=== PATIENT | male | born 1955 | race Caucasian/White ===

== ENCOUNTER 2018-11-07 11:31 | Outpatient (REF) | payer BC, SELFPAY ==
[2018-11-07 14:09] LABS: ALT 65 U/L (12-78); AST 39 U/L (15-37); Albumin 3.6 g/dL (3.4-5.0); Alkaline Phosphatase 71 U/L (46-116); Anion Gap 8.2 mmol/L (3-11); BUN 18 mg/dL (7-18); Bilirubin, Total 0.8 mg/dL (0.2-1.0); CO2 27.8 mmol/L (21.0-32.0); CREATININE 1.12 mg/dL (0.70-1.30); Chloride 107 mmol/L (98-107); Glucose 97 mg/dL (70-100); NT-proBNP 228 pg/mL; Potassium 4.4 mmol/L (3.5-5.1); Sodium 143 mmol/L (136-145); Total Protein 6.4 g/dL (6.4-8.2)
[2018-11-07 15:26] LABS: HCT 40.7 % (40.0-50.0); HGB 13.3 g/dL (13.5-17.5); Mean Corp. HGB Concentration 32.7 g/dL (32.0-36.0); Mean Corpuscular Volume 91.7 fL (80-95); Mean Platelet Volume 10.9 fL (8.0-11.0); Platelet Count 176 x1000/uL (130-400); RBC 4.44 m/cumm (4.50-6.00); White Blood Cell Count 5.04 k/cumm (4.4-10.8)
[2018-11-08 09:20] LABS: Hepatitis C Ab w Rflx HCV PCR Negative (NEGAT)
== END 2018-11-07 11:51 ==
LOC: NCHCN 11:31
PROVIDERS: PCP Internal Medicine; Visit Provider Internal Medicine
DX: F41.9 Anxiety disorder, unspecified (principal); I87.2 Venous insufficiency (chronic) (peripheral)
CPT/HCPCS: 80053; 85027; 86803; 83880

== ENCOUNTER 2019-03-12 14:40 | Outpatient (CLI) | payer BC, SELFPAY ==
--- NOTE | 2019-03-12 14:35 | DI.RAD_ITS ---
SYMPTOM/DIAGNOSIS: RIGHT KNEE PAIN LEG AND RIGHT KNEE: RIGHT KNEE: Severe DJD involving the right knee is noted. There is marked narrowing in the medial femorotibial joint space and periarticular hypertrophic spurring is demonstrated. SUMMARY: Severe DJD as identified. LEG LENGTH: The right lower extremity measures 102.7 cm. The left lower extremity measures 104.5 cm.
== END 2019-03-12 15:00 ==
PROVIDERS: PCP Internal Medicine; Visit Provider Physician Assistant
DX: M25.561 Pain in right knee (principal); M17.11 Unilateral primary osteoarthritis, right knee
CPT/HCPCS: 73560; 77073

== ENCOUNTER 2019-05-13 09:38 | Emergency (ER) | payer BC, SELFPAY ==
[2019-05-13 09:48] VITALS: BP 141/85; PULSE 58; RESP 15; TEMP 36.6; O2SAT 99
--- NOTE | 2019-05-13 09:50 | ED.GENADUL_ITS ---
Discharge Plan Disposition Patient Disposition: HOME Condition: Good Discharge Details Chief Complaint: Orthopedic Clinical Impression: Sprain of right shoulder Primary Care Provider: Hong Sadler ED Provider: Wade Aguilar Home Meds and New Rx's Prescriptions: New lidocaine [Lidoderm] 1 PATCH patch 1 patch Topical Q24H Qty: 4 RF: 0 No Action diphenoxylate-atropine 2.5-0.025 mg tablet 1 tab PO Q2H PRN PRNRF: 0 atorvastatin 40 mg tablet 40 mg PO DAILY RF: 0 Eliquis 5 mg tablet 5 mg PO BID RF: 0 metoprolol tartrate 25 mg tablet 12.5 mg PO HS RF: 0 mirtazapine 7.5 mg tablet 7.5 mg PO DAILY RF: 0 pantoprazole 40 mg tablet,delayed release (DR/EC) 40 mg PO DAILY RF: 0 gabapentin [Neurontin] 300 MG capsule 600 mg PO HS RF: 0 Discharge Instructions Instructions: Shoulder Sprain (ED) Additional Instructions: Please use the Lidoderm patch as directed. Please take Tylenol as needed for pain control. Please try to keep your arm moved in all directions multiple times throughout the day to prevent frozen shoulder syndrome. Please use the sling as needed for pain control. He will be contacted by non destructive testing specialist for follow-up. If you notice any worsening of your symptoms, or any new symptoms such as vomiting, diarrhea, fever, chills, shortness of breath, chest pain, numbness, weakness, or fainting , please return immediately to the emergency department for reevaluation. Please follow up with your primary care provider as soon as possible for reassessment and reevaluation. As always, it was a pleasure participating in your medical care today. Referrals: Stephen Johnson MD [ [facility] STAFF PHYSICIAN] - Medical Decision Making This is a pleasant 63-year-old male who presents for evaluation of right shoulder pain after fall 24 hours ago. He did not hit his head, he had no loss of consciousness peer he fell during the evening and caught himself with his right arm. Exam demonstrates normal sensation for his hand and fingers, no wrist pain, however he does have notable right shoulder pain in his right dominant arm. Tenderness is notably present with external rotation and abduction. He has severe weakness and pain in his shoulder when flexing at the elbow in the pronated fashion, concerning for biceps brachii injury. With the other concerning physical exam findings I am notably concerned for rotator cuff injury as well. We will get an x-ray to rule out fracture, place the patient in a sling, and recommend orthopedic follow-up. He has seen Dr. Johnson and is scheduled to have a knee replacement with him later this year. 11: [address] scan of the head is returned negative for any evidence of acute process fracture or bleed per virtual radiology, x-ray shows no evidence of acute process or fracture. I do suspect rotator cuff injury and potential biceps brachii injury. Patient has been given sling, pain is controlled. Discussed red flags which to return. I have extensively reviewed the treatment plan and discharge instructions with the patient. I have addressed all patient concerns at this time. The patient was made aware of what symptoms to monitor for that would warrant a return to the emergency department. Discussed the plan with the patient, they demonstrate verbal understanding and agreement with our assessment and plan at this time. FINDINGS: Brain: Normal. No hemorrhage. Unremarkable white matter. No mass effect. Ventricles: Normal. No ventriculomegaly. Bones/joints: Unremarkable. No acute fracture. Sinuses: Visualized sinuses are unremarkable. No fluid levels. Mastoid air cells: Visualized mastoid air cells are well aerated. No mastoid effusion. Soft tissues: Unremarkable. IMPRESSION: No acute intracranial abnormality. Thank you for allowing us to participate in the care of your patient. Dictated and Authenticated by: Sivakumar Petit MD 05/13/2019 10:56 AM Eastern Time ([place] & [place]) FINDINGS: Bones/joints: Moderate right acromioclavicular arthropathy. Soft tissues: Normal. IMPRESSION: No acute findings. Thank you for allowing us to participate in the care of your patient. Dictated and Authenticated by: Sivakumar Petit MD 05/13/2019 10:31 AM Eastern Time ([place] & [place]) HPI General Date/Time Provider Initiated Documentation: 05/13/19 09:49 . HPI Narrative: This is a 63-year-old male with a past medical history of A. fib on Eliquis who presents today for evaluation of right shoulder pain. Patient states that he has a history of a ventral right hand but has not had any previous surgeries. Last night he was walking in his home when he fell and caught himself with his right arm. At that time he felt that everything was pushed backwards and he had notable pain in his right shoulder, and some tingling in his fingertips. This is notably improved but the pain is continued. He has taken some Aleve but this is not changed his pain. He denies any chest pain, chest tightness or shortness of breath. He denies any wrist or forearm pain. Pain is made worse with flexing at the elbow, and any movements of the shoulder. He denies any other radiation of his pain. He has no other complaints at this time. Related Data Home Medications Medication Instructions Recorded Confirmed gabapentin [Neurontin] 600 mg PO HS 02/24/13 03/12/19 apixaban 5 mg tablet 5 mg PO BID 03/12/19 03/12/19 atorvastatin 40 mg tablet 40 mg PO DAILY 03/12/19 03/12/19 diphenoxylate-atropine 2.5 1 tab PO Q2H PRN PRN tab 03/12/19 03/12/19 mg-0.025 mg tablet metoprolol tartrate 25 mg tablet 12.5 mg PO HS tab 03/12/19 03/12/19 mirtazapine 7.5 mg tablet 7.5 mg PO DAILY 03/12/19 03/12/19 pantoprazole 40 mg tablet,delayed 40 mg PO DAILY 03/12/19 03/12/19 release lidocaine [Lidoderm] 1 patch TOPICAL Q24H #4 patch 05/13/19 Previous Rx's Medication Instructions Recorded lidocaine [Lidoderm] 1 patch TOPICAL Q24H #4 patch 05/13/19 Allergies Allergy/AdvReac Type Severity Reaction Status Date / Time No Known Allergies Allergy Unverified 03/12/19 14:27 General Stated Complaint: Orthopedic HERMAN: 4 Review of Systems Review of Systems All systems reviewed & are unremarkable except as noted in HPI and below PFSH Medical History (Updated 03/12/19 @ 18:02 by MIKY Bee) A-fib (Chronic) TIA (transient ischemic attack) (Chronic) Surgical History (Updated 03/12/19 @ 18:00 by MIKY Bee) History of colon resection (Chronic) History of total left knee replacement (TKR) (Chronic) Social History Smoking/Tobacco Use Status: Never Drug use: Never Do you feel safe in your relationship?: Yes Exam Narrative Exam Narrative: 1.Const: Well-nourished, Well-developed, appearing stated age 2.Eyes: PERRL, no conjunctival injection, and symmetrical lids. 3.ENT: Atraumatic external nose and ears. Moist MM. Neck: Symmetric, trachea midline, No thyromegaly. There is no evidence of raccoon eyes, martínez sign, CSF rhinorrhea, mastoid tenderness, cranial crepitus, hemotympanum, exophthalmos, or hyphema. 4.CVS: +S1/S2, No murmurs or gallops. Peripheral pulses 2+ and equal in all extremities. Brisk capillary refill in all extremities. 5.RESP: Unlabored respiratory effort. Clear to auscultation bilaterally. No wheezes rales or rhonchi 6.GI: Soft, Nontender/Nondistended, No hepatosplenomegaly. No guarding or rebound. 7.MSK: Normocephalic/Atraumatic, Extremities w/o deformity. No cyanosis or clubbing, right shoulder: Exam of the shoulder demonstrates mild tenderness over the AC joint, notable pain with external rotation and abduction, significant weakness in these movements secondary to pain. No severe pain or weakness with flexion, extension, adduction, or internal rotation. Patient demonstrates normal strength for flexion of the elbow when the forearm is supinated, however when the patient is pronated he has nearly 0 strength and significant pain in the shoulder. Concerning for biceps brachii pathology. Symmetrically palpable radial and ulnar pulses. Capillary refill less than 2 seconds to all digits. Intact sensation to light touch of the radial, median and ulnar nerves demonstrated by testing in the dorsal web space of the thumb, the distal palmar aspect of the index finger, and the lateral surface of the fifth finger. 2 point discrimination intact to 5mm (up to 6mm can be normal in digits 3-5) of discrimination in the affected digit. Intact motor function of the radial, median and ulnar nerves demonstrated by strength of extension of the isolated distal joint of the index finger, hand bank president, and spreading of the 2nd through 5th digits. Intact recurrent median nerve as demonstrated by ability to move thumb fully through opposition, abduction and flexion. No snuffbox tenderness. 8.Skin: Warm, Dry. No rashes or lesions. 9.Neuro: business ethics professor II-XII grossly intact. Sensation grossly intact, no focal neurologic deficits. 10.Psych: (AAO) x3. Appropriate mood and affect Course Vital Signs Temperature 36.6 C 05/13/19 09:48 Pulse 58 L 05/13/19 09:48 Respiratory Rate 15 05/13/19 09:48 Blood Pressure 141/85 H 05/13/19 09:48 Pulse Oximetry 99 05/13/19 09:48 Temperature 36.6 C 05/13/19 09:48 Temperature Source Temporal Artery Scan 05/13/19 09:48 Pulse 58 L 05/13/19 09:48 Respiratory Rate 15 05/13/19 09:48 Blood Pressure 141/85 H 05/13/19 09:48 Pulse Oximetry 99 05/13/19 09:48 Oxygen Delivery Method Room Air 05/13/19 09:48 Oxygen Flow Rate 0 05/13/19 09:48 Pain Level 10 05/13/19 09:48
--- NOTE | 2019-05-13 10:22 | DI.RAD_ITS ---
SYMPTOM/DIAGNOSIS: RIGHT SHOULDER PAIN. RIGHT SHOULDER: 05/13/19 Three views were obtained. There is hypertrophic degenerative change at the acromioclavicular joint. There is no evidence of a fracture or dislocation.
--- NOTE | 2019-05-13 10:32 | DI.VRAD_ITS ---
EXAM: XR Right Shoulder EXAM DATE/TIME: 05/13/2019 10:05 AM CLINICAL HISTORY: 63 years old, male; Patient HX: Patient tripped last night, catching himself, but jarring the right shoulder in an upward motion. Pain. TECHNIQUE: Imaging protocol: XR Right shoulder. Views: 2 or more views. COMPARISON: No relevant prior studies available. FINDINGS: Bones/joints: Moderate right acromioclavicular arthropathy. Soft tissues: Normal. IMPRESSION: No acute findings. Dictated and Authenticated by: Sivakumar Petit MD. Ordering:GURPREET Olvera MD
--- NOTE | 2019-05-13 10:33 | DI.CT_ITS ---
SYMPTOM/DIAGNOSIS: MIGHT HAVE HIT HEAD YESTERDAY, ON ELIQUIS CRANIAL CT: 05/[address] was performed. The ventricular system is normal in appearance. There is no evidence of an intracranial mass lesion. There is no evidence of a subdural or epidural hematoma. No focal areas of decreased attenuation are seen. CONCLUSION: Normal noncontrast Cranial CT.
[2019-05-13] MEDS: Acetaminophen 500 MG TAB 1000 MG PO (10:46)
[2019-05-13] MEDS: Lidocaine 5% Patch 1 PATCH TP (10:46)
--- NOTE | 2019-05-13 10:56 | DI.VRAD_ITS ---
EXAM: CT Head Without Contrast EXAM DATE/TIME: 05/13/2019 10:34 AM CLINICAL HISTORY: 63 years old, male; Injury or trauma; Injury history: Potential head trauma 05/12 TECHNIQUE: Imaging protocol: Computed tomography images of the head without contrast. Coronal and sagittal reformatted images were created and reviewed. COMPARISON: No relevant prior studies available. FINDINGS: Brain: Normal. No hemorrhage. Unremarkable white matter. No mass effect. Ventricles: Normal. No ventriculomegaly. Bones/joints: Unremarkable. No acute fracture. Sinuses: Visualized sinuses are unremarkable. No fluid levels. Mastoid air cells: Visualized mastoid air cells are well aerated. No mastoid effusion. Soft tissues: Unremarkable. IMPRESSION: No acute intracranial abnormality. Dictated and Authenticated by: Sivakumar Petit MD. Ordering:GURPREET Olvera MD
== END 2019-05-13 11:35 | disposition home or self-care (01) ==
PROVIDERS: Emergency Provider Student in an Organized Health Care Education/Training Program; PCP Internal Medicine
DX: S43.401A Unspecified sprain of right shoulder joint, initial encounter (principal); S09.90XA Unspecified injury of head, initial encounter; W18.30XA Fall on same level, unspecified, initial encounter; Z79.01 Long term (current) use of anticoagulants; I48.91 Unspecified atrial fibrillation
CPT/HCPCS: 99284; 70450; 73030; L3650

== ENCOUNTER 2019-05-28 01:18 | Outpatient (CLI) | payer BC, SELFPAY ==
--- NOTE | 2019-05-28 11:40 | DI.MRI_ITS ---
SYMPTOM/DIAGNOSIS: RT SHOULDER INJURY, S46.001A, FELL RIGHT SHOULDER MRI: Comparison is made with plain films dated 05/13/19. Proton density and fat suppressed T 2 axial and coronal and T 1 and fat suppressed T 2 sagittal sequences were performed. There is prominent spurring of the AC joint. There is also spurring at the tip of the acromion. There is a full thickness tear of the supraspinatus tendon with retraction to the level of the tip of the acromion. There is no significant muscular atrophy. The infraspinatus tendon shows no evidence of a tear, however there is some atrophy in the superior portion of the muscle. The subscapularis and teres minor as well as biceps tendons appear intact. There is abnormal signal in the superior labrum which could be degenerative. There is a minimal amount of joint fluid. There is a small amount of fluid in the subacromial and subcoracoid bursa. IMPRESSION: Full thickness tear with retraction of the supraspinatus tendon. Degenerative changes versus tear of the superior labrum.
== END 2019-05-28 01:38 ==
PROVIDERS: PCP Internal Medicine; Visit Provider Student in an Organized Health Care Education/Training Program
DX: S46.001A Unspecified injury of muscle(s) and tendon(s) of the rotator cuff of right shoulder, initial encounter (principal); M25.511 Pain in right shoulder
CPT/HCPCS: 73221

== ENCOUNTER 2019-06-29 06:10 | Day surgery (SDC) | payer BC, SELFPAY ==
[2019-06-29] VITALS (10 sets, daily range): BP systolic 87–110; BP diastolic 37–68; PULSE 69–88; RESP 15–19; TEMP 36.1–37.1; O2SAT 94–99
--- NOTE | 2019-06-29 07:24 | W.PM.DSUDISC ---
Discharge Plan Disposition Patient Disposition: HOME Condition: Stable Discharge Details Reason For Visit: RTC REPAIR Attending Provider: Jermaine Kenny Primary Care Provider: Hong Sadler Meds and New Rx's Prescriptions: New naproxen 250 mg tablet 250 mg PO BID PRN (Reason: pain) Qty: 60 RF: 0 aspirin 81 mg tablet,delayed release (DR/EC) 81 mg PO DAILY Qty: 30 RF: 0 ondansetron 4 mg tablet,disintegrating 4 mg PO Q6H PRN (Reason: nausea and vomiting) Qty: 5 RF: 0 oxycodone 5 mg tablet 5 mg PO Q4H PRN (Reason: pain, severe) Qty: 36 RF: 0 Continued diphenoxylate-atropine 2.5-0.025 mg tablet 1 tab PO Q2H PRN PRNRF: 0 atorvastatin 40 mg tablet 40 mg PO DAILY RF: 0 Eliquis 5 mg tablet 5 mg PO BID RF: 0 metoprolol tartrate 25 mg tablet 12.5 mg PO HS RF: 0 mirtazapine 7.5 mg tablet 7.5 mg PO HS RF: 0 pantoprazole 40 mg tablet,delayed release (DR/EC) 40 mg PO DAILY PRNRF: 0 cyclobenzaprine 5 mg tablet 5 mg PO QHS PRN (Reason: muscle spasm) Qty: 10 RF: 0 gabapentin [Neurontin] 300 MG capsule 600 mg PO HS RF: 0 Centrum Silver Men 300-600-300 mcg Tablet PO RF: 0 Probiotic 3 billion cell Capsule RF: 0 Discharge Instructions Referrals: Jermaine Kenny MD [ [facility] STAFF PHYSICIAN] - Discharge Orders Discharge Orders: Discharge Order (Routine); Ordered 06/29/19 Ordered By: Jermaine Kenny Discharge Data Discharge Comment: see paper PT prescription and postop instructions DS: Diagnosis Discharge Diagnosis (1) Rotator cuff tear, right: Status: Acute (2) Stiffness of right shoulder joint: Status: Acute (3) Tendonitis of long head of biceps brachii of right shoulder: Status: Acute (4) Impingement syndrome of right shoulder: Status: Acute (5) Bursitis of right shoulder: Status: Acute
[2019-06-29] MEDS: Lactated Ringers 1,000 ML 100 ML IV ×2 (07:27→13:22)
[2019-06-29] MEDS: Bupivacaine LIPOSOME/PF 133 MG/10 ML VIAL IJ (07:40)
[2019-06-29] MEDS: Bupivacaine 0.5% Pres-Free 30 ML VIAL (07:40)
[2019-06-29] MEDS: ceFAZolin 2 GM/50 ML BAG IVPB (07:47)
[2019-06-29] MEDS: EPINEPHrine 1 MG/ML AMP pres-free (12:20)
--- NOTE | 2019-06-29 13:46 | W.PM.OP ---
Date of service: 06/29/19 Time of Service: 13:47 Operative Note Operative Note DATE OF PROCEDURE: 06/29/19 PRE-OP DIAGNOSIS: RIGHT 1. Rotator cuff tear 2. LHB tendinopathy 3. Bursitis 4. Contracture POST-OP DIAGNOSIS: same PROCEDURE: RIGHT shoulder: 1. Extensive debridement, CPT# 40499. This involved using arthroscopic hand instruments, power instruments, and radiofrequency instruments to debride areas of the biceps anchor, labral tearing, synovitis, and chondromalacia within the glenohumeral joint and subacromial region. The MGHL was released to address an external rotation contracture. The greater tuberosity was debrided down to bone and the bone penetrated with a punch to optimize the bone-tendon healing interface. 2. Biceps tenodesis, CPT# 61535. This involved reattaching the long head of the biceps tendon to the proximal humerus in the sub-pectoral area of the bicipetal groove at the correct tension. 3. Subacromial decompression, CPT# 24375. This involved releasing the coraco-acromial ligament using a radiofrequency wand, using a high-speed shaver to complete a bursectomy, and using a high-speed michael to complete removal of bone spurs on the undersurface of the acromion. 4. Rotator cuff repair, CPT# 69158. Modifier #22. This involved repair of the subscapularis, supraspinatus, and infraspinatus using anchors and sutures to reattach the rotator cuff back to the footprint of the lesser and greater tuberosity. This qualifies as a massive rotator cuff repair as it involved repair 3 out of 4 rotator cuff tendons. This required substantially more time and effort to complete, as noted by approximately 50% longer surgical time and a greater number of implants. The regulatory assistant was medically required in order to help assist in techniques above, which require positioning the arm, holding the arthroscope, and manipulating 2 to 4 instruments and sutures at the same time. This cannot be done without the help of an experienced regulatory assistant. SURGEON: Jermaine Kenny ASSISTING SURGEON: Solitario Mitchell ANESTHESIA: GETA and regional ESTIMATED BLOOD LOSS: 30 PATHOLOGY: none sent COMPLICATIONS: None Patient was transported to: PACU Patient's condition: stable Implants: Arthrex: 4.75mm SwiveLocks x 7 and Unicortical Proximal Biceps Tenodesis Button Indications: The patient was diagnosed with the above conditions and appropriately indicated for surgical intervention. Findings: Right shoulder: The exam under anesthesia revealed known right shoulder stiffness with passive forward flexion to 90 degrees and external rotation to 30 degrees. In the glenohumeral joint, there was significant anterior, posterior, superior labral tearing with surrounding synovitis and a full-thickness subscapularis tendon tear. There was also a thickened middle glenohumeral ligament. The long head of the biceps was inflamed and the biceps sling was also disrupted. There was adjacent chondromalacia of the humeral head. In the subacromial space, there was extensive bursitis and a moderate bone spur near the origin of the coraco-acromial ligament. There was a large tear of the supraspinatus and infraspinatus tendons that was retracted in a complex delaminated pattern involving 2 layers. Procedure Description: The patient was taken to the operating room and transferred to the operating room table. The correct patient, side of the procedure, and procedure were all verified prior to induction of general anesthesia. While under anesthesia, bilateral shoulders were examined. The patient was then positioned in the beachchair position. All bony prominences were well-padded. Preoperative antibiotics were administered. The shoulder and upper extremity was prepped and draped in the usual sterile fashion. Standard posterior portal was then made using a stab incision inferior and medial to the posterior lateral aspect of the acromion. The arthroscope was placed into the glenohumeral joint and a complete diagnostic arthroscopy was performed. An anterior portal was made. A tenotomy was done using hand instruments. The anterior labrum, superior labrum, biceps stump, and synovitis around the middle glenohumeral ligament were debrided as well as the biceps sling and adjacent chondromalacia on the humeral head using hand instruments and power instruments. The subscapularis tear was identified and mobilized. Using a single portal technique sutures were passed into the subscapularis. This consisted of 2 FiberSnares and a FiberTape. These were fixated with a 4.75 mm swivel lock that was placed onto a debrided lesser tuberosity. This repair was tested through external rotation and found to be both stable. Next, attention was turned to the mini open biceps tenodesis. Local anesthetic was infiltrated about the sub-pectoral incision. Blunt dissection was carried down to the bicipital groove. Retractors were carefully placed to protect neurovascular structures as the long head of the biceps tendon was identified and brought out of the incision. The tenodesis location was debrided with a rasp about 1 cm proximal to the inferior margin of the pectoralis major tendon. The tendon was found to be significantly frayed and edematous. The tendon was prepared using a fiber loop suture starting a centimeter proximal to the musculotendinous junction and the excess amputated. A power drill was used to localize placement of a unicortical biceps button. The sutures were threaded into the button which was placed into the proximal humerus and flipped and then tested thoroughly to ensure proper fixation in the intramedullary canal. The sutures were used the slide the tendon down to the prepared bone and it was tied in place. This wound was then copiously irrigated. Subcutaneous tissue was closed using 3-0 Monocryl in a buried interrupted fashion. The skin was closed using 3-0 Monocryl in a buried running fashion. Skin glue was applied to the incision. A sterile nonadhesive bandage was applied on top. Attention was returned to the shoulder and the arthroscope introduced into the subacromial space from posterior. A lateral portal was made. A complete bursectomy was performed from both the posterior and lateral portals using power instruments and radiofrequency instruments. A bone spur on the underside of the acromion was identified at the origin of the coracoacromial ligament and this was smoothed using a power michael. The supraspinatus and infraspinatus tendons were mobilized and repaired across the entirety of the greater tuberosity footprint in an anatomic fashion using a modified double row reduction compression technique. This involved placing a medial row of 2 swivel lock anchors and using the handoff technique to pass fiber tape through both layers of this large rotator cuff tear. The greater tuberosity was then debrided of soft tissue and punched down to bleeding cancellus bone as a sort of microfracture. FiberLinks were then used to reduce each layer of this delaminated large tear across the greater tuberosity and fixated with 2 SwivelLock anchors to a middle row. The previously passed FiberTapes were then brought over the reduced rotator cuff and fixated laterally to 2 additional SwiveLock anchors. 2 additional FiberLink sutures were incorporated into the posterior lateral row anchor to accommodate a large infraspinatus tear that needed to be reduced from posterior to anterior. The shoulder was brought through a range of motion and the repair was found to be stable. All portal sites were copiously irrigated. These incisions were closed using 3-0 nylon with a combination of portal stitches and simple stitches. All incisions were covered with Xeroform, dry gauze, and ABDs. The dressings were covered with foam tape. The patient awoke from anesthesia without complication. The operative extremity was placed into a sling for mobilization. The patient was transferred to the recovery room in stable condition.
== END 2019-06-29 16:40 | disposition home or self-care (01) ==
PROVIDERS: PCP Internal Medicine; Visit Provider Student in an Organized Health Care Education/Training Program
PROC: (CPT 29827; principal; 2019-06-29 07:30)
PROC: (CPT 23430; 2019-06-29 07:30)
DX: S46.011A Strain of muscle(s) and tendon(s) of the rotator cuff of right shoulder, initial encounter (principal); X58.XXXA Exposure to other specified factors, initial encounter; M25.611 Stiffness of right shoulder, not elsewhere classified; M75.21 Bicipital tendinitis, right shoulder; M75.41 Impingement syndrome of right shoulder; M75.51 Bursitis of right shoulder; G89.18 Other acute postprocedural pain; I48.91 Unspecified atrial fibrillation; Z86.73 Personal history of transient ischemic attack (TIA), and cerebral infarction without residual deficits; Z79.01 Long term (current) use of anticoagulants
CPT/HCPCS: 23430; 29827; 29826; 29823; 76942; J0171; J0690; J1100; J1885; J2370; J2405; L3670

== ENCOUNTER 2020-01-13 17:18 | Observation (INO) | payer BC, SELFPAY ==
[2020-01-13] VITALS (56 sets, daily range): BP systolic 112–146; BP diastolic 61–81; PULSE 61–89; RESP 12–24; TEMP 36.4–36.8; O2SAT 94–99
--- NOTE | 2020-01-13 17:46 | ED.GENADUL_ITS ---
Discharge Plan Disposition Patient Disposition: OTHER Discharge Details Chief Complaint: Chest Pain Clinical Impression: Chest pain, ST segment changes on electrocardiogram Primary Care Provider: Hong Sadler ED Provider: Jori Nino [place] Meds and New Rx's Prescriptions: No Action diphenoxylate-atropine 2.5-0.025 mg tablet 1 tab PO Q2H PRN PRNRF: 0 atorvastatin 40 mg tablet 40 mg PO DAILY RF: 0 Eliquis 5 mg tablet 5 mg PO BID RF: 0 metoprolol tartrate 25 mg tablet 12.5 mg PO BID RF: 0 mirtazapine 7.5 mg tablet 7.5 mg PO HS RF: 0 pantoprazole 40 mg tablet,delayed release (DR/EC) 40 mg PO DAILY PRNRF: 0 gabapentin [Neurontin] 300 MG capsule 600 mg PO HS RF: 0 Centrum Silver Men 300-600-300 mcg Tablet PO RF: 0 Probiotic 3 billion cell Capsule RF: 0 amoxicillin 500 mg Tablet See Rx Instructions .ROUTE .COMPLEX RF: 0 Medical Decision Making 64-year-old gentleman with significant medical history including intermittent atrial fibrillation, idiopathic cardiomyopathy, anticoagulated, presents for 2-3 days of a dull chest sensation, 2/10 aching. Asymptomatic now for at least 1 hour. History of EF being in the 30s but most recently back into the 50s. He currently appears well, nontoxic. Did not appear to be in atrial fibrillation, rate in the 80s, he is afebrile, and O2 sat is 97% on room air. No obvious infectious process. Will initiate cardiac work-up and give full dose aspirin. Patient reports that aspirin upsets his stomach, will give enteric-coated. EKG performed at 1726. Reviewed and interpreted by Dr. Robles. Sinus rhythm, ventricular of 85. Appears to be ST depression in V3 V4 V5 V6 which appears new when compared to prior EKG in 2017. No ST elevation segments. Inverted T waves in lead III 1814. Patient has had chest x-ray, appears unremarkable as read by me. Virtual radiology read as mild interstitial prominence, may be related to edema. BNP is pending he remains asymptomatic 1844. Discussed his benign laboratory values and EKG changes. Patient remains asymptomatic. He is agreeable to await a 3-hour troponin and EKG here in the ER. If there are dynamic changes of the EKG or elevation of troponin likely transfer will be indicated otherwise I would like to admit him here to our facility for cardiac rule out and hope to expedite cardiac work-up including echocardiogram and stress test. Patient is initially agreeable to transfer if indicated but unsure if he is willing to be admitted to our facility and he would like to contact his vice president of product marketing. I explained to him that if his blood work is unchanged he still has changes in his EKG which are concerning. This likely requires further work-up and given the pandemic going on around us, a timely outpatient stress test and/or echocardiogram are unlikely. I am concerned that delaying care could certainly lead to a poor outcome. Patient understands my concerns and would like to talk with his family regarding the options. At this point we are just awaiting the 3-hour zoe to obtain EKG and repeat troponin 1999. Patient reports that he continues to have no chest pain whatsoever however sitting here in the ER is now making him anxious. Will be given 1 mg IV Ativan and will give all of his evening medications. Repeat EKG performed at 2026, reviewed and interpreted by Dr. Aguilar. Sinus rhythm, ventricular rate 81. There continues to be ST depression in V3 4 5 and 6 however to a lesser degree than his initial EKG. There are no ST elevation segments. Inverted T waves in lead III 2119. Repeat troponin is less than 0.05. Patient remains asymptomatic. Given his age, comorbidities, chest aching, and EKG changes, I do believe bringing him into the facility for further observation and rule out is certainly reasonable. Patient feels with his EKG changes and chest pain he would be much more comfortable being observed. I discussed the case with Dr. Holt who is agreeable for an observation admission and trending troponin. He did want me to make the patient aware that inpatient nuclear medicine studies, echocardiogram, etc. may not be available as an inpatient, and being admitted may not expedite these tests. I did make the patient aware of this prior to admission. HPI General Mode of arrival: ambulatory . Date/Time Provider Initiated Documentation: 01/13/20 17:20 . Limitations to Documentation: no limitations . Information obtained by: patient . HPI Narrative: This is a 64-year-old gentleman with a history of A. fib, takes Eliquis, hyperlipidemia, hypertension, GERD, idiopathic cardiomyopathy presenting for intermittent chest sensation for the past 2-3 days. He reports the sensation is not necessarily pain or pressure but a very dull aching 2out of 10 aching. The pain does not radiate anywhere. He has been symptom-free for at least 1 hour currently. This aching does not feel like anything he has experienced when he has gone into A. fib in the past. He reports over the past couple of days he has been burning brush in his yard but does not feel he would describe this as strenuous work nor is there a clear connection between his chest sensation and working in the yard. Patient reports that he attempted to contact his primary care, spoke with the on-call physician, and was directed to be evaluated in the ER. He reports that he debated coming because he has been asymptomatic for over an hour. He reports that when he has the aching in his chest he has mild shortness of breath associated with it. It resolves in under 5 minutes spontaneously. Patient reports that his last stress test was back in 2012, he also had an echocardiogram and at that time his EF was around 35%. He was followed by vice president of product marketing and subsequently his EF came up into the mid 50s, he does not know the exact number. He was scheduled for another echocardiogram this month but it was canceled given the pandemic. He is followed by cardiology in [place] however his provider recently changed and he is unsure of his vice president of product marketing name. He reports that his primary care provider did increase his metoprolol dose not that long ago as he had been occasionally going into atrial fibrillation, this changes seem to help. He reports occasionally having a mild cough in the morning but then no cough throughout the day or evening. He denies any obvious fever although reports that going inside his house from outside working on the brush pile he did feel warm, he attributed that to the temperature change. He denies any headache, visual changes, neck pain, radiation of pain from his chest, productive cough, abdominal pain, nausea, vomiting, back pain, numbness, tingling, weakness, pain or swelling in his extremities, change of bowel or bladder habits. Patient later tells me that occasionally he wakes from sleep with a dull ache in his chest. Related Data Home Medications Medication Instructions Recorded Confirmed gabapentin [Neurontin] 600 mg PO HS 02/24/13 01/13/20 apixaban 5 mg tablet 5 mg PO BID 03/12/19 01/13/20 atorvastatin 40 mg tablet 40 mg PO DAILY 03/12/19 01/13/20 diphenoxylate-atropine 2.5 1 tab PO Q2H PRN PRN tab 03/12/19 01/13/20 mg-0.025 mg tablet metoprolol tartrate 25 mg tablet 12.5 mg PO BID tab 03/12/19 01/13/20 mirtazapine 7.5 mg tablet 7.5 mg PO HS 03/12/19 01/13/20 pantoprazole 40 mg tablet,delayed 40 mg PO DAILY PRN 03/12/19 01/13/20 release Centrum Silver Men tab PO 06/29/19 10/23/19 Probiotic 06/29/19 10/23/19 amoxicillin See Rx Instructions .ROUTE .COMPLEX 01/13/20 01/13/20 Allergies Allergy/AdvReac Type Severity Reaction Status Date / Time No Known Allergies Allergy Verified 01/13/20 17:28 General Stated Complaint: Chest Pain HERMAN: 3 Review of Systems Constitutional Constitutional: Denies fatigue, Denies fever(s), Denies headache(s) and Denies weakness Eyes Eyes: Denies change in vision ENT Ears, Nose, Mouth, and Throat: Denies headache(s) Cardiovascular Cardiovascular: Reports chest pain, Denies leg edema, Denies radiating jaw, neck or arm pain, Reports palpitations and Reports dyspnea Respiratory Respiratory: Reports cough and Reports dyspnea Gastrointestinal Gastrointestinal: Denies abdominal pain, Denies nausea and Denies vomiting Genitourinary Genitourinary: Denies dysuria Musculoskeletal Musculoskeletal: Denies back pain, Denies numbness and Denies tingling Integumentary/Breasts Skin/Breast: Reports lesions (Face, working with his primary care regarding this) Neurologic Neurologic: Denies headache(s), Denies numbness, Denies tingling and Denies weakness Endocrine Endocrine: Denies fatigue and Reports palpitations Hematologic/Lymphatic Hematologic/Lymphatic: Reports easy bruising FOR[facility]LY [facility], 1928–1983 Medical History A-fib (Chronic) Hx of testicular cancer (Acute) Irritable bowel syndrome (Chronic) TIA (transient ischemic attack) (Chronic) Caused by his atrial fibrillation prior to treatment Surgical History History of colon resection (Chronic) For ileus caused by narcotics after previous left total knee replacement History of colonoscopy (Chronic) History of total left knee replacement (TKR) (Chronic) Social History Smoking/Tobacco Use Status: Never Alcohol Intake: current Alcohol Intake frequency: a few times a week Alcohol type: beer Drug use: Never Substance use type: does not use Do you feel safe at home: Yes Do you feel safe in your relationship?: Yes Exam Const General: cooperative, healthy appearing, comfortable and no acute distress Orientation: alert, awake and oriented x3 HENMT Head: normal to inspection, normocephalic and atraumatic Mouth: moist mucous membranes Throat: posterior oropharynx normal Eyes Conjunctivae: conjunctivae normal Neck Neck: normal visual inspection, full ROM, no lymphadenopathy, trachea midline and supple Chest Chest: normal inspection of the chest and no tenderness Resp Effort & Inspection: normal respiratory effort and able to speak in complete sentences Auscultation: clear to auscultation bilaterally Cardio Rate: regular rate Rhythm: regular rhythm GI Inspection: normal to inspection Palpation: soft, not firm, no guarding, not rigid and nontender Auscultation: normal bowel sounds Back/Spine/Pelvis Back: No back tenderness Skin Rashes: no rashes Neuro General: patient alert, patient awake, patient oriented x3, moves all extremities and no focal motor deficits Cranial Nerves: CN's II-XI intact bilaterally Cognition: normal cognition Speech: speech normal Gait: normal gait Motor: muscle tone normal throughout Sensory Exam: no sensory deficits noted Extrem General: normal to inspection, full ROM, capillary refill normal, no pedal edema and no calf tenderness Psych Appearance: grossly normal Mental Status: mental status grossly normal Course Vital Signs Vital signs: Vital Signs Temperature 36.8 C 01/13/20 17:24 Pulse 83 01/13/20 17:24 Blood Pressure 143/71 H 01/13/20 17:24 Pulse Oximetry 97 01/13/20 17:24 Temperature 36.8 C 01/13/20 17:24 Temperature Source Temporal Artery Scan 01/13/20 17:24 Pulse 87 01/13/20 17:42 Pulse 88 01/13/20 17:42 Respiratory Rate 12 01/13/20 17:42 Respiratory Effort Non-Labored 01/13/20 17:27 Blood Pressure 126/81 01/13/20 17:42 Blood Pressure Mean 92 01/13/20 17:42 Blood Pressure Position Supine 01/13/20 17:24 Pulse Oximetry 98 01/13/20 17:42 Oxygen Delivery Method Room Air 01/13/20 17:24 Oxygen Flow Rate 0 01/13/20 17:24 Pain Level 2 01/13/20 17:24
--- NOTE | 2020-01-13 17:55 | DI.RAD_ITS ---
EXAM: XR PORTABLE CHEST AP CLINICAL HISTORY: <chest pain> TECHNIQUE: 2D digital imaging was performed. COMPARISON: CHEST 2 VIEWS PA,LAT from 07/02/2017 FINDINGS: LUNGS: Clear. No pleural abnormality seen. HEART: Normal. MEDIASTINUM: Normal. No evidence of pneumothorax. IMPRESSION: No acute pulmonary findings. DATA REPOSITORY: RADIATION DOSE DELIVERED:
[2020-01-13 17:57] LABS: Abs Immature Grans 0.01 k/cumm (0.0-0.09); Absolute Basophil Count 0.03 k/cumm (0.0-0.2); Absolute Eosinophil Count 0.17 k/cumm (0.0-0.7); Absolute Lymphocyte Count 1.92 k/cumm (1.2-3.4); Absolute Monocyte Count 0.91 k/cumm (0.11-0.7); Absolute Neutrophil Count 4.63 k/cumm (1.2-6.7); Basophils % 0.4; Eosinophils % 2.2; HCT 40.7 % (40.0-50.0); HGB 13.9 g/dL (13.5-17.5); Immature Grans % 0.1 %; Mean Corp. HGB Concentration 34.2 g/dL (32.0-36.0); Mean Corpuscular Hemoglobin 30.5 pg (27.0-33.0); Mean Corpuscular Volume 89.3 fL (80-95); Mean Platelet Volume 9.4 fL (8.0-11.0); Monocytes % 11.9; Neutrophils % 60.4; Platelet Count 206 x1000/uL (130-400); RBC 4.56 m/cumm (4.50-6.00); RBC Distribution Width 13.1 % (11.8-14.1); White Blood Cell Count 7.67 k/cumm (4.4-10.8)
[2020-01-13] MEDS: Aspirin E.C. 325 MG TABEC PO (17:57)
--- NOTE | 2020-01-13 18:03 | DI.VRAD_ITS ---
PROCEDURE INFORMATION: Exam: XR Chest, 1 View Exam date and time: 01/13/2020 5:46 PM Age: 64 years old Clinical indication: Other: Chest pain TECHNIQUE: Imaging protocol: XR of the chest Views: 1 view. COMPARISON: CR CHEST 2 VIEWS PA,LAT 07/02/2017 3:20 AM FINDINGS: Lungs: No consolidation. There is prominence of the interstitial markings. Pleural space: No pleural effusion. No pneumothorax. Heart/Mediastinum: Unremarkable. No cardiomegaly. Bones/joints: Unremarkable. IMPRESSION: Mild interstitial prominence may be related to edema. Dictated and Authenticated by: Ignacio Ni MD. Ordering:CRYSTAL Hsieh MD
[2020-01-13 18:11] LABS: PTT Activated 25.5 sec (21.0-31.4); Prothrombin Time 10.1 sec (9.3-11.0)
[2020-01-13 18:19] LABS: ALT 34 U/L (16-63); AST 26 U/L (15-37); Albumin 3.9 g/dL (3.4-5.0); Alkaline Phosphatase 82 U/L (46-116); BUN 23 mg/dL (7-18); Bilirubin, Total 0.6 mg/dL (0.2-1.0); CREATININE 1.13 mg/dL (0.70-1.30); Calcium 8.9 mg/dL (8.5-10.1); Chloride 107 mmol/L (98-107); Glucose 98 mg/dL (74-106); NT-proBNP 149 pg/mL (<300); Potassium 4.2 mmol/L (3.5-5.1); Sodium 142 mmol/L (136-145); Total Protein 7.3 g/dL (6.4-8.2)
[2020-01-13 18:21] LABS: Troponin I < 0.05 ng/Ml (<0.06)
[2020-01-13] MEDS: Normal Saline Flush 10 ML SYR IVP (19:37)
[2020-01-13] MEDS: LORazepam 2 MG/ML VIAL 1 MG IVP (19:37)
[2020-01-13] MEDS: Atorvastatin 40 MG TAB PO (20:14)
[2020-01-13] MEDS: Metoprolol 12.5 MG TAB PO (20:14)
[2020-01-13] MEDS: Gabapentin 300 MG CAP 600 MG PO (20:14)
[2020-01-13] MEDS: Apixaban 5 MG TAB PO (20:14)
[2020-01-13] MEDS: Mirtazapine 15 MG TAB 7.5 MG PO (20:15)
[2020-01-13 20:59] LABS: Troponin I < 0.05 ng/Ml (<0.06)
--- NOTE | 2020-01-13 21:25 | W.PM.HP.N ---
Date of service: 01/13/20 Time of Service: 21:25 Assessment and Plan Assessment and plan (1) Atypical chest pain: Start date: 01/13/20 Status: Acute Assessment and plan: This is a 64-year-old gentleman who has a history of idiopathic cardiomyopathy and paroxysmal atrial fibrillation presenting with atypical chest pressure without radiation but with associated diaphoresis and air hunger not associated with activity. His initial troponins and delta troponin were negative and he will be admitted for observation overnight with continued trending of troponins and nuclear medicine stress test in the morning. The nurse tells me that he did have a nuclear stress test scheduled but had to cancel because of the coronavirus pandemic. He does not qualify for STEMI or acute transfer for cardiac catheterization. His records may be more available in Dr. Sadler's outpatient office records to review tomorrow. 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 (2) ST segment changes on electrocardiogram: Start date: 01/13/20 Status: Acute Assessment and plan: Given the patient's change in EKG he warrants closer observation with nuclear medicine stress test in the morning. Observe om telemetry and trend troponins overnight. (3) A-fib: Status: Chronic Assessment and plan: Patient is now in sinus rhythm with history of paroxysmal atrial fibrillation in the past. He did have metoprolol increased recently. Qualifiers: Atrial fibrillation type: paroxysmal Qualified Code(s): I48.0 - Paroxysmal atrial fibrillation (4) Cardiomyopathy: Status: Chronic Assessment and plan: Patient's regular doctor tenderness and outpatient records which can be reviewed in the morning. Echocardiogram was not reordered. He gives a history of recovering from 30% of the present left ventricular ejection fraction. He appears to still drink alcohol and is vague on his alcohol use history. Qualifiers: Cardiomyopathy type: other Qualified Code(s): I42.8 - Other cardiomyopathies History of Present Illness History of Present Illness Chief Complaint: Chest pressure Narrative: This is a 64-year-old male patient who has had symptoms of retrosternal chest pressure without radiation over the last 2 to 3 days which has been intermittent and not necessarily associated with activity. He did some mild yard work but had no change in his frequency or severity of chest discomfort during that time. The discomfort was 2 out of 10 and in the ED he had no chest pressure. He has a history of idiopathic cardiomyopathy thought to be associate with alcohol of the time but patient very vague about his alcohol use in the past except that it is less now. He mostly drinks beer. He had an echocardiogram that revealed an ejection fraction in the 30% range and there was improvement into the 50% range but no documentation of this. With this chest pressure which was retrosternal he had no associated radiation as mentioned and slight diaphoresis and dyspnea but no nausea or dizziness. He does have a paroxysmal atrial fibrillation and hypertension and is on Eliquis and after he had TIAs with his cardiac dysrhythmia around 2017. His cardiomyopathy began in 2011. He denies any other symptoms other than a mild cough recently but no fever and no URI symptoms. See ED report for review. Review of Systems Narrative: 13 point review of systems otherwise unrevealing or stable. The patient is not overweight but does have some arthritic problems with the lower extremities and chronic swelling in his right leg. There is been no change recently. [facility] Medical History A-fib (Chronic) Hx of testicular cancer (Acute) Irritable bowel syndrome (Chronic) TIA (transient ischemic attack) (Chronic) Caused by his atrial fibrillation prior to treatment Surgical History History of colon resection (Chronic) For ileus caused by narcotics after previous left total knee replacement History of colonoscopy (Chronic) History of total left knee replacement (TKR) (Chronic) Social History Smoking/Tobacco Use Status: Never Alcohol Intake: current Alcohol Intake frequency: a few times a week Alcohol type: beer Drug use: Never Substance use type: does not use Do you feel safe at home: Yes Do you feel safe in your relationship?: Yes Meds Home Medications and Allergies Home Medications Medication Instructions Recorded Confirmed Type gabapentin [Neurontin] 600 mg PO HS 02/24/13 01/13/20 History apixaban 5 mg tablet 5 mg PO BID 03/12/19 01/13/20 History atorvastatin 40 mg tablet 40 mg PO DAILY 03/12/19 01/13/20 History diphenoxylate-atropine 2.5 1 tab PO Q2H PRN PRN tab 03/12/19 01/13/20 History mg-0.025 mg tablet metoprolol tartrate 25 mg tablet 12.5 mg PO BID tab 03/12/19 01/13/20 History mirtazapine 7.5 mg tablet 7.5 mg PO HS 03/12/19 01/13/20 History pantoprazole 40 mg tablet,delayed 40 mg PO DAILY PRN 03/12/19 01/13/20 History release Centrum Silver Men tab PO 06/29/19 10/23/19 History Probiotic 06/29/19 10/23/19 History amoxicillin See Rx Instructions .ROUTE .COMPLEX 01/13/20 01/13/20 History Allergies Allergy/AdvReac Type Severity Reaction Status Date / Time No Known Allergies Allergy Verified 01/13/20 17:28 Exam Narrative Exam Narrative: General: Patient appears appropriate for age, alert and oriented x3 with slightly flattened affect but fair eye contact. Is in no acute distress. He is a vague historian. HEENT: Normocephalic, eyes with pupils equal and reactive to light symmetrically, extraocular movement intact and sclera anicteric. Oral mucosa with moist pink mucosa. Neck: Supple without JVD. Back: Normal posture with no CVA tenderness. Lungs: Clear to auscultation and percussion with no focalizing rales or rhonchi. Heart: Regular rhythm and rate with intermittent gallop but no appreciable murmurs. Abdomen: Normal contour, soft and nontender to palpation with no palpable hepatosplenomegaly. Bowel sounds positive in all quadrants. Genitalia/rectal: Exam deferred. Extremities: 2+ edema slightly pitting right lower extremity with knee having arthritic changes and decreased range of motion. 1+ edema of left lower extremity status post left TKA. Peripheral pulses intact. No cyanosis or clubbing. Skin: Normal color, warm and dry. Neuro: Cranial nerves II through XII grossly intact, motor and sensory grossly intact. Psych: Flattened affect with slightly depressed mood, normal thought processes but vague historian without obvious short-term memory loss. Remote memory intact. He has problems reporting details and seems to have some avoidance in his conversation. Results Imaging EKG: report reviewed (ED reported ST segment depressions laterally with T wave changes and sinus rhythm, changed from 2017.) Labs Result diagrams: 01/14/20 05:20 01/14/20 05:20 Labs: Laboratory Results - last 24 hr 01/13/20 01/13/20 01/13/20 17:25 17:25 17:25 WBC 7.67 RBC 4.56 Hgb 13.9 Hct 40.7 MCV 89.3 MCH 30.5 MCHC 34.2 RDW 13.1 Plt Count 206 MPV 9.4 Immature Gran % 0.1 Neutrophils % 60.4 Lymphocytes % 25.0 Monocytes % 11.9 Eosinophils % 2.2 Basophils % 0.4 Absolute Neutrophils 4.63 Absolute Lymphocytes 1.92 Absolute Monocytes 0.91 H Absolute Eosinophils 0.17 Absolute Basophils 0.03 PT 10.1 INR 1.0 APTT 25.5 Sodium 142 Potassium 4.2 Chloride 107 Carbon Dioxide 26.0 Anion Gap 9.0 BUN 23 H Creatinine 1.13 Estimated GFR/1.73 m2 >= 60.00 Glucose 98 Calcium 8.9 Magnesium 2.0 Total Bilirubin 0.6 AST 26 ALT 34 Alkaline Phosphatase 82 Troponin I < 0.05 NT-Pro-B Natriuret Pep 149 Total Protein 7.3 Albumin 3.9 01/13/20 20:30 WBC RBC Hgb Hct MCV MCH MCHC RDW Plt Count MPV Immature Gran % Neutrophils % Lymphocytes % Monocytes % Eosinophils % Basophils % Absolute Neutrophils Absolute Lymphocytes Absolute Monocytes Absolute Eosinophils Absolute Basophils PT INR APTT Sodium Potassium Chloride Carbon Dioxide Anion Gap BUN Creatinine Estimated GFR/1.73 m2 Glucose Calcium Magnesium Total Bilirubin AST ALT Alkaline Phosphatase Troponin I < 0.05 NT-Pro-B Natriuret Pep Total Protein Albumin Last Vital Signs Temp 36.8 C 01/13/20 17:24 Pulse 78 01/13/20 21:01 Resp 13 01/13/20 21:01 BP 117/71 01/13/20 21:01 Pulse Ox 95 01/13/20 21:01 COVID-19 Screening Traveled to [place] from one of the affected countries or regions?: NO Recent travel in the [place] within the last 8 weeks?: No Recent out of the country travel within the last 8 weeks?: No Exposure or possible exposure to illness during travel?: No Had IN PERSON contact w/suspected or confirmed C-19 person: No Have you had the following symptoms in the past few days?: No Symptoms noted since travel?: No Symptoms
[2020-01-13 22:12] LABS: TSH (W/Ref FT4) 2.71 uIU/mL (0.36-3.74)
[2020-01-14 00:49] LABS: Troponin I < 0.05 ng/Ml (<0.06)
[2020-01-14 02:23] LABS: Bilirubin Negative (Negative); Blood Negative (Negative); Clarity Clear (Clear); Glucose Negative (Negative); Ketones Negative (Negative); Leukocyte Esterase Negative (Negative); Nitrite Negative (Negative); Specific Gravity 1.025 (1.005-1.025); Urobilinogen 0.2 EU/dL (Up TO 0.2)
[2020-01-14 05:38] LABS: HCT 37.6 % (40.0-50.0); HGB 12.7 g/dL (13.5-17.5); Mean Corp. HGB Concentration 33.8 g/dL (32.0-36.0); Mean Corpuscular Hemoglobin 30.3 pg (27.0-33.0); Mean Corpuscular Volume 89.7 fL (80-95); Mean Platelet Volume 9.3 fL (8.0-11.0); Platelet Count 186 x1000/uL (130-400); RBC 4.19 m/cumm (4.50-6.00); White Blood Cell Count 5.13 k/cumm (4.4-10.8)
[2020-01-14 05:54] LABS: ALT 29 U/L (16-63); AST 21 U/L (15-37); Albumin 3.2 g/dL (3.4-5.0); Alkaline Phosphatase 65 U/L (46-116); Anion Gap 6.6 mmol/L (3-11); BUN 19 mg/dL (7-18); Bilirubin, Total 0.9 mg/dL (0.2-1.0); CO2 27.4 mmol/L (21.0-32.0); CREATININE 0.89 mg/dL (0.70-1.30); Calcium 8.4 mg/dL (8.5-10.1); Chloride 108 mmol/L (98-107); Glucose 95 mg/dL (74-106); Potassium 3.9 mmol/L (3.5-5.1); Sodium 142 mmol/L (136-145); Total Protein 6.2 g/dL (6.4-8.2)
[2020-01-14 05:57] LABS: Troponin I < 0.05 ng/Ml (<0.06)
--- NOTE | 2020-01-14 06:00 | DI.NM_ITS ---
APPROVED REPORT Exam: Pharmacologic Patient Location: In-Patient Room/Bed: 225 Stress Nurse: Carmela Dunlap RN BMI: 24.80 Baseline Rhythm: Sinus Rhythm Comment: Mild ST Depression in leads II, III, aVF, V4, V5, V6. Indications: Patient presented to the ED 01/13/2020 with intermittent chest pressure (3/10) without ra diation over the last two days, not associated with activity but with slight diaphoresis and dyspnea. In the ED patient had some ST segment changes. His troponins have been negative 4X while in the hosp ital. Medical History Medical History: Atrial Fibrillation, Cardiomyopathy, TIA 2x, Testicular Cancer, Colon Resection. Cardiac Medications: Apixaban, Atorvastatin, Metoprolol Tartrate. Allergies: No known drug allergies Cardiac Risk Factors: FHX of CAD Previous Cardiac Procedures: None Pretest Chest Pain Characteristics: Slight SOB per patient. Exercise History: Physically active Physical Disabilities: None Lung Sounds: Clear to auscultation Heart Sounds: Regular Stress Test Details Test: Pharmacologic stress testing performed using 0.4 mg of regadenoson per 5 mL given IV over 10 s econds. Nuclear Acquisition: Rest Tc-99m/Stress Tc-99m 1 day Rest Isotope: Tc-99m Sestamibi. Dose: 10.6 Date: 01/14/2020 Injection Time: 1000 Stress Isotope: Tc-99m Sestamibi. Dose: 33.6 Date: 01/14/2020 Injection Time: 1130 HR Resting HR Supine: 64 bpm Max Heart Rate (APMHR): 154 bpm Target HR (85% APMHR): 130 bpm Max HR Achieved: 101 bpm % of APMHR: 65 BP Resting BP Supine: 124/68 mmHg Max BP: 134/66 mmHg ECG Resting ECG: Sinus Rhythm Comment: T wave flattening in the lateral leads with 0.[address] depression. Stress ECG: Sinus Rhythm ST Change: T wave flattening in the lateral leads with 0.[address] depression Lead(s): II, III, aVF, V3, V4, V5, V6 Maximum ST Deviation: 0.5 mm Arrhythmia: None Recovery ECG: Sinus Rhythm Recovery ST Change: T wave flattening in the lateral leads 0.[address] depression. Lead(s): V4, V5, V6 Recovery Arrhythmia: None Clinical Stress Symptoms: Dyspnea Stress ECG Conclusion 1. The EKG portion of this exam is nondiagnostic due to baseline ST abnormalities. Protocol Used: Regadenoson Stress Test Summary STAGE HR BP Symptoms NOTES Supine 64 124/68 1 min post Lexiscan injection 100 130/70 3 min post Lexiscan injection 88 134/66 6 min post Lexiscan injection 76 130/68 9 min post Lexiscan injection 73 128/68 12 min post Lexiscan injection 15 min post Lexiscan injection MPI Conclusion Ejection fraction with stress was 43%. There are no wall motion abnormalities. There is a small fixed apical defect with no surrounding ischemia that is more apparent on attenuatio n correction images. This likely represents artifact. Radiologist Interpretation Radiologist agrees with Academic Vice President's Interpretation. Radiologist Interpretation by: Alfreda Adames MD Interpretation Date/Time: 01/17/2020 12:17:27
[2020-01-14 07:30] VITALS: BP 122/77; PULSE 72; RESP 17; TEMP 37.2; O2SAT 95
--- NOTE | 2020-01-14 08:01 | INITIAL_ITS ---
- If Service Date Differs Date of service: 01/14/20 Time of Service: 08:02 Care Management Initial Assess REASON FOR HOSPITALIZATION:: Atypical chest pain PAST MEDICAL HISTORY/PAST SURGICAL HISTORY:: Medical History . A-fib (Chronic). Hx of testicular cancer (Acute). Irritable bowel syndrome (Chronic). TIA (transient ischemic attack) (Chronic). Caused by his atrial fibrillation prior to treatment. Surgical History . History of colon resection (Chronic). For ileus caused by narcotics after previous left total knee replacement. History of colonoscopy (Chronic). History of total left knee replacement (TKR) (Chronic) PREVIOUS FUNCTIONAL STATUS/SOCIAL/FAMILY SUPPORTS:: Raul lives in [place] with his Evita. He has 2 grown children who live in the area and are very supportive. Raul currently works for [employer] and is responsible for all of their [employer] maintenance and needs.He is independent at baseline. CURRENT FUNCTIONAL STATUS:: Raul was sitting up in bed when CM met with him. He stated that he had completed his stress test and was waiting to see the doctor to find out if he can be discharged. Raul shared some past experiences in the hospital and shared that he has received great care at [facility] in the past and much prefers it to [facility] ADVANCE DIRECTIVES:: None on file Has patient been provided with information about the portal?: Yes Did the patient sign up for the portal?: Yes CODE STATUS:: Full Code INSURANCE COVERAGE / FINANCIAL ISSUES:: MITCHEL GONZALEZ CURRENT HOME/COMMUNITY SERVICES/EQUIPMENT:: None PRIMARY CARE PHYSICIAN:: Tod Sadler MD POTENTIAL DISCHARGE NEEDS:: Follow up with Cardiology, PCP and discharge plan PATIENT/FAMILY EDUCATION NEEDS:: Discharge plan, limitations, follow up plan, Ask Me Three. TRANSPORTATION:: via private vehicle with family PLAN:: Raul will be discharged home with no new services. He will transport with his Evita via private vehicle. Raul will follow up with his PCP and discharge plan of care.
[2020-01-14] MEDS: Apixaban 5 MG TAB PO (08:25)
[2020-01-14] MEDS: Atorvastatin 40 MG TAB PO (08:25)
[2020-01-14] MEDS: Aspirin E.C. 81 MG TABEC PO (08:25)
[2020-01-14] MEDS: Metoprolol 25 MG TAB 12.5 MG PO (08:25)
[2020-01-14] MEDS: Normal Saline Flush 10 ML SYR IVP ×2 (10:08→10:21)
--- NOTE | 2020-01-14 10:27 | PHA.REVIEW ---
Pharmacy Admission Review - Admission Clinical Review (Last Reviewed 01/13/20 @ 21:28 by Francisco Holt) Atypical chest pain (Acute) Chest pain (Acute) ST segment changes on electrocardiogram (Acute) No Known Allergies Allergy (Verified 01/13/20 17:28) Height 6 ft 1 in Weight 85.5 kg - Renal Dosing Renal Dosing: BUN 19 mg/dL (7-18) H 01/14/20 05:20 Creatinine 0.89 mg/dL (0.70-1.30) 01/14/20 05:20 Medications needing adjustments: Reviewed (CrCl~ 92 mL/min) - Anticoagulation Anticoagulation: Hgb 12.7 g/dL (13.5-17.5) L 01/14/20 05:20 Hct 37.6 % (40.0-50.0) L 01/14/20 05:20 Plt Count 186 x1000/uL (130-400) 01/14/20 05:20 INR 1.0 (0.9-1.1) 01/13/20 17:25 Creatinine 0.89 mg/dL (0.70-1.30) 01/14/20 05:20 DVT Prohphylaxis: Reviewed (Home med) Medications: Apixaban Therapeutic Anticoagulation: Reviewed (ASA :HOME MED) Medications: Aspirin - Opiate Usage Evaluate Pain Scale/Pains Meds: Reviewed (Lomotil) - Relevant Labs Sodium 142 mmol/L (136-145) 01/14/20 05:20 Potassium 3.9 mmol/L (3.5-5.1) 01/14/20 05:20 Chloride 108 mmol/L (98-107) H 01/14/20 05:20 Magnesium 2.0 mg/dL (1.8-2.4) 01/13/20 17:25 Electrolytes, C-Reactive P, ESR: N/A - DM Control DM Control: Glucose 95 mg/dL (74-106) 01/14/20 05:20 Insulin Dosing: N/A - Heart Failure/IN Heart Failure/IN: Troponin I < 0.05 ng/Ml (<0.06) 01/14/20 05:20 NT-Pro-B Natriuret Pep 149 pg/mL (<300) 01/13/20 17:25 EF%, VIANEY's, B-Blockers, Diuretics: Reviewed (Lopressor (Home Med), Goig for Lexiscan stress test today>) - BP Control BP Control: Blood Pressure 122/77 Blood Pressure 143/61 If elevated: Reviewed (Lopressor) - Qtc Review If Elevated: N/A - IV to PO Switch IV Medications: N/A - Home Meds Home Med List reviewed: Reviewed (Amoxil, Centrum, Probiotic not ordered) - Current meds Current Medication Order Review: Reviewed (Current meds-OK)
[2020-01-14] MEDS: LORazepam 2 MG/ML VIAL 0.5 MG IVP (10:30)
[2020-01-14] MEDS: Regadenoson 0.4 MG/5 ML SYR IVP (11:29)
[2020-01-14 12:27] VITALS: BP 105/59; PULSE 66; RESP 18; TEMP 36.4; O2SAT 96
--- NOTE | 2020-01-14 14:59 | DSE_ITS ---
Date of service: 01/14/20 Time of Service: 14:59 DS: Diagnosis Discharge Diagnosis (1) Atypical chest pain: Start date: 01/14/20 Start time: 15:00 Status: Resolved Asessment and Plan: Resolved. NPI Stress negative for any new ischemia. No symptoms. Will place on event recorder for 30 days, history of afib. (2) ST segment changes on electrocardiogram: Start date: 01/14/20 Start time: 15:01 Status: Acute Asessment and Plan: EKG changes on admission, when compared to EKG in 2017. Serial troponins negative. Stress without any new ischemic areas. Follow up with Cardiology and PCP for further management. (3) A-fib: Start date: 01/14/20 Start time: 15:04 Status: Chronic Asessment and Plan: Continue apixaban and follow up with cardiology. SR with RRR of 85 at this time. (4) Cardiomyopathy: Start date: 01/14/20 Start time: 15:05 Status: Chronic Asessment and Plan: History of 30% left ventricular EF. Discharge Plan Disposition Patient Disposition: HOME Condition: Stable Discharge Details Chief Complaint: Chest Pain Clinical Impression: Chest pain, ST segment changes on electrocardiogram Reason For Visit: ATYPICAL CHEST PAIN, IDIOPATHIC CARDIOMYOPATHY, PA Admit Date/Time: 01/13/20 21:29 Admit Provider: Francisco Holt Attending Provider: Francisco Holt Primary Care Provider: Hong Sadler ED Provider: Jori Nino Hospital Course Hospital Course: 64 y.o male with PMH of Afib on apixaban, Cardiomyopathy, CTS, OA admitted from [facility] ED for Chest pressure without radiation over 2-3 days. 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 Past Echo revealing EF in 30% range with improvement to 50% per last providers note. In the ED there EKG changes with ST depression in V3 V4 V5 V6 which appears new when compared to prior EKG in 2017. No ST elevation segments. Inverted T waves in lead III. Labs and imaging otherwise unremarkable. He was admitted for further management of stress test. Stress today read by cardiology, no new ischemia present. Could be old scarring or artifact but otherwise unremarkable. Patient has not had any chest pain or pressure today. Feels great and is ready to go home. He will be discharged home with 30 day event recorder. Follow up with PCP in 1-2 weeks and follow up with cardiology in 1-2 weeks. He denies CP, SOB, N/v/d. Home Meds and New Rx's Prescriptions: Continued diphenoxylate-atropine 2.5-0.025 mg tablet 1 tab PO Q2H PRN PRNRF: 0 atorvastatin 40 mg tablet 40 mg PO DAILY RF: 0 Eliquis 5 mg tablet 5 mg PO BID RF: 0 metoprolol tartrate 25 mg tablet 12.5 mg PO BID RF: 0 mirtazapine 7.5 mg tablet 7.5 mg PO HS RF: 0 pantoprazole 40 mg tablet,delayed release (DR/EC) 40 mg PO DAILY PRNRF: 0 gabapentin [Neurontin] 300 MG capsule 600 mg PO HS RF: 0 Centrum Silver Men 300-600-300 mcg Tablet PO RF: 0 Probiotic 3 billion cell Capsule RF: 0 amoxicillin 500 mg Tablet See Rx Instructions .ROUTE .COMPLEX RF: 0 Discharge Instructions Instructions: Chest Pain (DC), Noncardiac Chest Pain (DC) Additional Instructions: Follow up with your PCP in 1-2 weeks. Follow up with your child psychologist in 1-2 weeks. Wear event recorder for 30 days. Activity:: Activity as Tolerated Equipment/Supplies:: No Equipment Needed Diet:: Heart healthy Discharge Orders Discharge Orders: Discharge Order (Routine); Ordered 01/14/20 Ordered By: Hannah Gay DS: Summary Status at Discharge Functional status at discharge: independent ambulation Overall status at discharge: patient is back to baseline Mental Status: mental status grossly normal Speech and Movement: speech and movement normal Mood: congruent mood Affect: normal affect Exam Narrative Exam Narrative: General: Patient appears appropriate for age, alert and oriented x3 with slightly flattened affect but fair eye contact. Is in no acute distress. HEENT: Normocephalic, eyes with pupils equal and reactive to light symmetrically, extraocular movement intact and sclera anicteric. Oral mucosa with moist pink mucosa. Neck: Supple without JVD. Back: Normal posture with no CVA tenderness. Lungs: Clear to auscultation and percussion with no focalizing rales or rhonchi. Heart: Regular rhythm and rate with intermittent gallop but no appreciable murmurs. Abdomen: Normal contour, soft and nontender to palpation with no palpable hepatosplenomegaly. Bowel sounds positive in all quadrants. Extremities: 2+ edema slightly pitting right lower extremity with knee having arthritic changes and decreased range of motion. 1+ edema of left lower extremity status post left TKR. Peripheral pulses intact. No cyanosis or clubbing. Skin: Normal color, warm and dry. Neuro: Cranial nerves II through XII grossly intact, motor and sensory grossly intact. Psych: Flattened affect with slightly depressed mood, normal thought processes but vague historian without obvious short-term memory loss. Remote memory intact. He has problems reporting details and seems to have some avoidance in his conversation. Psych Mental Status: mental status grossly normal Speech and Movement: speech and movement normal Mood: congruent mood Affect: normal affect DS: Data Vitals/I&O Vitals and I&O: Vital Signs Temperature 36.4 C L 01/14/20 12:27 Temperature Source Temporal Artery Scan 01/14/20 12:27 Pulse 66 01/14/20 12:27 Pulse Rhythm Regular 01/14/20 09:17 Pulse 82 01/13/20 21:54 Respiratory Rate 18 01/14/20 12:27 Respiratory Effort Non-Labored 01/14/20 09:17 Respiratory Depth Normal 01/14/20 09:17 Respiratory Pattern Normal 01/14/20 09:17 Blood Pressure 105/59 L 01/14/20 12:27 Blood Pressure Mean 83 01/13/20 21:54 Blood Pressure Position Supine 01/13/20 17:24 Pulse Oximetry 96 01/14/20 12:27 Oxygen Delivery Method Room Air 01/14/20 12:27 Oxygen Flow Rate 0 01/14/20 12:27 Pain Level 0 01/14/20 12:27 Intake & Output 01/13/20 01/14/20 01/14/20 23:59 11:59 23:59 Intake Total Output Total 600 / 600 Balance -600 / -600 Weight 86.183 kg 85.5 kg Intake: IV Output: Urine 600 / 600 Other: Urine Color Yellow Urine Appearance Clear Urine Odor Strong Voiding Methods Urinal Data Completed and Pending Completed studies during hospitalization [Text1]: Exam(s) a RAD:XR portable chest AP EXAM: XR PORTABLE CHEST AP CLINICAL HISTORY: <chest pain> TECHNIQUE: 2D digital imaging was performed. COMPARISON: CHEST 2 VIEWS PA,LAT from 07/02/2017 FINDINGS: LUNGS: Clear. No pleural abnormality seen. HEART: Normal. MEDIASTINUM: Normal. No evidence of pneumothorax. IMPRESSION: No acute pulmonary findings. DATA REPOSITORY: Labs on day of discharge: Labs from last 24 hours 01/14/20 01/14/20 01/14/20 05:20 05:20 05:20 WBC 5.13 D RBC 4.19 L Hgb 12.7 L Hct 37.6 L MCV 89.7 MCH 30.3 MCHC 33.8 RDW 13.0 Plt Count 186 MPV 9.3 Immature Gran % Neutrophils % Lymphocytes % Monocytes % Eosinophils % Basophils % Absolute Neutrophils Absolute Lymphocytes Absolute Monocytes Absolute Eosinophils Absolute Basophils PT INR APTT Sodium 142 Potassium 3.9 Chloride 108 H Carbon Dioxide 27.4 Anion Gap 6.6 BUN 19 H Creatinine 0.89 Estimated GFR/1.73 m2 >= 60.00 Glucose 95 Calcium 8.4 L Magnesium Total Bilirubin 0.9 AST 21 ALT 29 Alkaline Phosphatase 65 Troponin I < 0.05 NT-Pro-B Natriuret Pep Total Protein 6.2 L Albumin 3.2 L TSH Urine Color Urine Clarity Urine pH Ur Specific Sebastian Urine Protein Urine Ketones Urine Blood Urine Nitrite Urine Bilirubin Urine Urobilinogen Ur Leukocyte Esterase Urine Glucose 01/14/20 01/14/20 01/13/20 01:00 00:20 20:30 WBC RBC Hgb Hct MCV MCH MCHC RDW Plt Count MPV Immature Gran % Neutrophils % Lymphocytes % Monocytes % Eosinophils % Basophils % Absolute Neutrophils Absolute Lymphocytes Absolute Monocytes Absolute Eosinophils Absolute Basophils PT INR APTT Sodium Potassium Chloride Carbon Dioxide Anion Gap BUN Creatinine Estimated GFR/1.73 m2 Glucose Calcium Magnesium Total Bilirubin AST ALT Alkaline Phosphatase Troponin I < 0.05 NT-Pro-B Natriuret Pep Total Protein Albumin TSH 2.71 Urine Color Yellow Urine Clarity Clear Urine pH 6.0 Ur Specific Sebastian 1.025 Urine Protein Negative Urine Ketones Negative Urine Blood Negative Urine Nitrite Negative Urine Bilirubin Negative Urine Urobilinogen 0.2 Ur Leukocyte Esterase Negative Urine Glucose Negative 01/13/20 01/13/20 01/13/20 20:30 17:25 17:25 WBC 7.67 RBC 4.56 Hgb 13.9 Hct 40.7 MCV 89.3 MCH 30.5 MCHC 34.2 RDW 13.1 Plt Count 206 MPV 9.4 Immature Gran % 0.1 Neutrophils % 60.4 Lymphocytes % 25.0 Monocytes % 11.9 Eosinophils % 2.2 Basophils % 0.4 Absolute Neutrophils 4.63 Absolute Lymphocytes 1.92 Absolute Monocytes 0.91 H Absolute Eosinophils 0.17 Absolute Basophils 0.03 PT 10.1 INR 1.0 APTT 25.5 Sodium Potassium Chloride Carbon Dioxide Anion Gap BUN Creatinine Estimated GFR/1.73 m2 Glucose Calcium Magnesium Total Bilirubin AST ALT Alkaline Phosphatase Troponin I < 0.05 NT-Pro-B Natriuret Pep Total Protein Albumin TSH Urine Color Urine Clarity Urine pH Ur Specific Sebastian Urine Protein Urine Ketones Urine Blood Urine Nitrite Urine Bilirubin Urine Urobilinogen Ur Leukocyte Esterase Urine Glucose 01/13/20 17:25 WBC RBC Hgb Hct MCV MCH MCHC RDW Plt Count MPV Immature Gran % Neutrophils % Lymphocytes % Monocytes % Eosinophils % Basophils % Absolute Neutrophils Absolute Lymphocytes Absolute Monocytes Absolute Eosinophils Absolute Basophils PT INR APTT Sodium 142 Potassium 4.2 Chloride 107 Carbon Dioxide 26.0 Anion Gap 9.0 BUN 23 H Creatinine 1.13 Estimated GFR/1.73 m2 >= 60.00 Glucose 98 Calcium 8.9 Magnesium 2.0 Total Bilirubin 0.6 AST 26 ALT 34 Alkaline Phosphatase 82 Troponin I < 0.05 NT-Pro-B Natriuret Pep 149 Total Protein 7.3 Albumin 3.9 TSH Urine Color Urine Clarity Urine pH Ur Specific Sebastian Urine Protein Urine Ketones Urine Blood Urine Nitrite Urine Bilirubin Urine Urobilinogen Ur Leukocyte Esterase Urine Glucose REPLACED BY [facility] Medical History A-fib (Chronic) Hx of testicular cancer (Acute) Irritable bowel syndrome (Chronic) TIA (transient ischemic attack) (Chronic) Caused by his atrial fibrillation prior to treatment Surgical History History of colon resection (Chronic) For ileus caused by narcotics after previous left total knee replacement History of colonoscopy (Chronic) History of total left knee replacement (TKR) (Chronic) Social History Smoking/Tobacco Use Status: Never Alcohol Intake: current Alcohol Intake frequency: a few times a week Alcohol type: beer Drug use: Never Substance use type: does not use Do you feel safe at home: Yes Do you feel safe in your relationship?: Yes
[2020-01-14 15:15] VITALS: BP 106/69; PULSE 81; RESP 18; TEMP 36.3; O2SAT 96
--- NOTE | 2020-01-14 16:21 | CHAPLAIN ---
Raul was resting in bed when I visited. He was waiting to have a stress test. He came in with chest discomfort and was waiting to hear back from test results, and the stress test to see what was going on. He lives in [place], after moving here from [place].
--- NOTE | 2020-02-18 08:44 | W.CARDEVENT ---
Date of service: 02/18/20 Time of Service: 08:44 Cardiac Event Recorder Cardiac Event Note: This is a 30-day event monitor ordered for the indication of atrial fibrillation. ?The patient was in normal sinus rhythm for the majority of the recording. Average heart rate was 88 bpm. ?There were 0 critical and 0 serious events recorded. ?There were 12 patient triggered events that were all associated with sinus rhythm. ?There were no episodes of atrial fibrillation, no pauses greater than 3 seconds and no evidence of high degree heart block.
== END 2020-01-14 16:05 | disposition home or self-care (01) ==
LOC: ER 22:24 → MS 22:27
PROVIDERS: Admitting Provider Family Medicine; Emergency Provider Physician Assistant; PCP Internal Medicine; Visit Provider Internal Medicine
DX: R07.89 Other chest pain (principal); R94.31 Abnormal electrocardiogram [ECG] [EKG]; I48.0 Paroxysmal atrial fibrillation; Z79.01 Long term (current) use of anticoagulants; I42.8 Other cardiomyopathies
CPT/HCPCS: 36415; 78452; 80053; 85027; 93005; 93270; 96374; 99220; 99239; 99285; 71045; 81003; 83735; 83880; 84443; 84484; 85025; 85610; 85730; 93010; 93017; 99217; G0378; J2060; J2785; J3490

== ENCOUNTER 2020-02-19 11:51 | Outpatient (REF) | payer BC, SELFPAY ==
[2020-02-21 10:26] LABS: PSA, Screening 8.1 ng/mL (0.0-4.5)
== END 2020-02-19 12:11 ==
LOC: NCHCN 11:51
PROVIDERS: PCP Internal Medicine; Visit Provider Internal Medicine
DX: N40.0 Benign prostatic hyperplasia without lower urinary tract symptoms (principal); Z12.5 Encounter for screening for malignant neoplasm of prostate
CPT/HCPCS: 84153

== ENCOUNTER 2020-03-21 15:00 | Outpatient (CLI) | payer BC, SELFPAY ==
--- NOTE | 2020-03-21 15:06 | DI.RAD_ITS ---
EXAM: XR HAND RT COMPLETE CLINICAL HISTORY: R HAND PAIN. TECHNIQUE: 2D digital imaging was performed. COMPARISON: No exams were available for comparison FINDINGS: BONES: No acute fracture is present. No bony destructive lesion is seen. JOINTS: No dislocation present. Mild degenerative changes are seen at the interphalangeal joints of t he thumb and index finger characterized by periarticular spurring and joint space narrowing. SOFT TISSUE: Normal. IMPRESSION: Mild degenerative changes of the right hand. DATA REPOSITORY: RADIATION DOSE DELIVERED:
== END 2020-03-21 15:20 ==
PROVIDERS: PCP Internal Medicine; Referring Provider Internal Medicine; Visit Provider Student in an Organized Health Care Education/Training Program
DX: M79.641 Pain in right hand (principal); M19.041 Primary osteoarthritis, right hand
CPT/HCPCS: 73130

== ENCOUNTER 2020-04-23 14:51 | Outpatient (REF) | payer BC, SELFPAY ==
[2020-04-23 19:34] LABS: Abs Immature Grans 0.01 k/cumm (0.0-0.09); Absolute Basophil Count 0.02 k/cumm (0.0-0.2); Absolute Eosinophil Count 0.04 k/cumm (0.0-0.7); Absolute Monocyte Count 0.61 k/cumm (0.11-0.7); Absolute Neutrophil Count 4.16 k/cumm (1.2-6.7); Basophils % 0.3; Eosinophils % 0.6; HCT 40.1 % (40.0-50.0); HGB 13.4 g/dL (13.5-17.5); Immature Grans % 0.2 %; Lymphocytes % 23.7; Mean Corp. HGB Concentration 33.4 g/dL (32.0-36.0); Mean Corpuscular Hemoglobin 30.1 pg (27.0-33.0); Mean Corpuscular Volume 90.1 fL (80-95); Mean Platelet Volume 10.2 fL (8.0-11.0); Monocytes % 9.6; Neutrophils % 65.6; Platelet Count 225 x1000/uL (130-400); RBC 4.45 m/cumm (4.50-6.00); RBC Distribution Width 12.9 % (11.8-14.1); White Blood Cell Count 6.34 k/cumm (4.4-10.8)
[2020-04-23 19:54] LABS: ALT 33 U/L (16-63); AST 22 U/L (15-37); Albumin 4.1 g/dL (3.4-5.0); Alkaline Phosphatase 70 U/L (46-116); Anion Gap 11.3 mmol/L (3-11); BUN 15 mg/dL (7-18); Bilirubin, Total 1.2 mg/dL (0.2-1.0); CO2 24.7 mmol/L (21.0-32.0); Calcium 9.4 mg/dL (8.5-10.1); Chloride 104 mmol/L (98-107); Glucose 87 mg/dL (74-106); Lipase 89 U/L (73-393); Potassium 4.2 mmol/L (3.5-5.1); Sodium 140 mmol/L (136-145); Total Protein 6.6 g/dL (6.4-8.2)
== END 2020-04-23 15:11 ==
LOC: NCHCN 14:51
PROVIDERS: PCP Internal Medicine; Visit Provider Family Medicine
DX: R10.9 Unspecified abdominal pain (principal)
CPT/HCPCS: 80053; 83690; 85025

== ENCOUNTER 2020-05-01 02:58 | Outpatient (CLI) | payer BC, SELFPAY ==
[2020-05-01 13:26] LABS: Abs Immature Grans 0.01 10^3/uL (0.0-0.06); Absolute Basophil Count 0.04 10^3/uL (0.0-0.2); Absolute Eosinophil Count 0.07 10^3/uL (0.0-0.7); Absolute Lymphocyte Count 1.41 10^3/uL (1.2-3.4); Absolute Monocyte Count 0.66 10^3/uL (0.1-0.8); Absolute Neutrophil Count 3.89 10^3/uL (1.2-6.7); Basophils % 0.7; Eosinophils % 1.2; HCT 39.6 % (40.0-50.0); HGB 13.2 g/dL (13.5-17.5); Immature Grans % 0.2; Lymphocytes % 23.2; MCH 29.7 pg (27.0-33.0); MCHC 33.3 % (32.0-36.0); MPV 9.8 fL (8.0-11.0); Monocytes % 10.9; Neutrophils % 63.8; Platelet Count 212 10^3/uL (130-400); RBC 4.45 10^6/uL (4.36-5.78); RDW 12.5 % (11.8-14.1); RDW-SD 40.8 fL; WBC 6.08 10^3/uL (4.4-10.8)
[2020-05-01 14:43] LABS: ESR 16 mm/hr (1-20)
[2020-05-01 21:44] LABS: Rheumatoid Factor <8.6 IU/mL (<12.0)
[2020-05-01 21:52] LABS: CRP, High Sensitivity <0.10 mg/L (See Note)
[2020-05-01 22:32] LABS: PSA, Diagnostic 8.9 ng/mL (0.0-4.5)
[2020-05-02 09:08] LABS: Cyclic Citrullinated Peptide <2.5 U/mL (<5.0)
[2020-05-02 11:33] LABS: Lyme Ab w Rflx to Lyme Confirm Negative (Negative)
[2020-05-02 14:09] LABS: ANA Interpretation Negative (Negative)
== END 2020-05-01 03:18 ==
PROVIDERS: Student in an Organized Health Care Education/Training Program; PCP Internal Medicine; Visit Provider Urology
DX: R97.20 Elevated prostate specific antigen [PSA] (principal); G56.01 Carpal tunnel syndrome, right upper limb; R94.31 Abnormal electrocardiogram [ECG] [EKG]
CPT/HCPCS: 36415; 85652; 86141; 86200; 84153; 85025; 86038; 86431; 86618

== ENCOUNTER 2020-05-30 04:13 | Outpatient (CLI) | payer BC, SELFPAY ==
--- NOTE | 2020-05-30 07:30 | DI.CT_ITS ---
EXAM: CT ABDOMEN PELVIS W CLINICAL HISTORY: PERSISTENT LLQ AND LOW ABD PAIN,R10.9 TECHNIQUE: COMPARISON: CT ABD PELVIS WITH CONTRAST from 09/20/2010 FINDINGS: CT examination of the abdomen and pelvis was performed with bolus infusion of 100 cc of Omnipaque 350 . Images obtained through the lung bases are unremarkable. Liver and spleen appear normal. Pancreas appears normal with unremarkable appearance of the pancreat ic duct. Gallbladder is CT normal. There is no biliary dilatation. Note is made of apparent wall thickening of the duodenal bulb and descending duodenum, there is loss of the fat plane between the pancreas and descending duodenum. The 3rd and 4th portions of the duode num may have slightly thickened wall. There is irregular wall thickening of portions of the proximal jejunum and mild jejunal dilatation. No gross evidence of obstruction. No focal mass identified. Appendix is normal. No evidence of diverticulitis. Abdominal aorta is of normal diameter. There is aortic wall calcification. There is calcification m ultiple visceral branch vessels. 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 Adrenals and kidneys are unremarkable in appearance. No urinary tract calcification or obstruction. Marked wall thickening of the urinary bladder noted, please correlate regarding the possibility of cy stitis and/or chronic bladder outlet obstruction. No gross abdominal or pelvic lymphadenopathy. No significant abdominal wall hernia seen. IMPRESSION: Irregular wall thickening portions of duodenum and jejunum as described above, loss of the duodenum p ancreatic fat plane. Possibility of inflammatory process involving the proximal small bowel is raise d. Neoplastic disease including lymphoma not excluded. Correlation with endoscopy recommended. Marked wall thickening of urinary bladder, nonspecific, consider cystitis. 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 RADIATION DOSE DELIVERED: 795.2mGy.cm Total DLP
[2020-05-30] MEDS: Breeza Beverage 473 ML BTL PO ×2 (07:46→07:48)
[2020-05-30] MEDS: Omnipaque 350 MG/ML 50 ML BTL PO (07:47)
[2020-05-30] MEDS: Omnipaque 350 MG/ML 100 ML BTL IJ (09:02)
[2020-05-30] MEDS: Normal Saline - Diluent 50 ML VIAL IV (09:03)
== END 2020-05-30 04:33 ==
PROVIDERS: PCP Internal Medicine; Visit Provider Internal Medicine
DX: R10.32 Left lower quadrant pain (principal); K63.89 Other specified diseases of intestine; N32.89 Other specified disorders of bladder
CPT/HCPCS: 74177; J3490; Q9967

== ENCOUNTER 2020-08-25 03:58 | Outpatient (CLI) | payer BC, SELFPAY ==
[2020-09-03 12:16] LABS: PSA, Diagnostic 9.4 ng/ml (0-4.5)
== END 2020-08-25 04:18 ==
PROVIDERS: PCP Internal Medicine; Visit Provider Urology
DX: R97.20 Elevated prostate specific antigen [PSA] (principal)
CPT/HCPCS: 36415; 84153

== ENCOUNTER 2020-09-16 13:30 | Outpatient (CLI) | payer BC, SELFPAY ==
--- NOTE | 2020-09-16 13:15 | DI.RAD_ITS ---
EXAM: XR ELBOW LT COMPLETE CLINICAL HISTORY: left elbow pain. TECHNIQUE: 2D digital imaging was performed. COMPARISON: No exams were available for comparison FINDINGS: BONES: No acute fracture is present. No bony destructive lesion is seen. There is a small enthesophyt e at the triceps insertion site. JOINTS: The elbow is normally aligned. No joint effusion is seen. SOFT TISSUE: Normal. IMPRESSION: Unremarkable radiographs of the left elbow. DATA REPOSITORY: RADIATION DOSE DELIVERED:
== END 2020-09-16 13:50 ==
PROVIDERS: PCP Internal Medicine; Referring Provider Internal Medicine; Visit Provider Student in an Organized Health Care Education/Training Program
DX: M25.522 Pain in left elbow (principal)
CPT/HCPCS: 73080

== ENCOUNTER 2020-12-23 11:35 | Outpatient (CLI) | payer BC, SELFPAY ==
--- NOTE | 2020-12-23 08:15 | DI.RAD_ITS ---
EXAM: XR SHOULDER RT COMPLETE 2+V CLINICAL HISTORY: right shoulder pain. TECHNIQUE: 2D digital imaging was performed. COMPARISON: CR XR shoulder RT complete 2+V from 05/13/2019 FINDINGS: Since the prior examination the patient has undergone right shoulder surgery. Moderate hypertrophic changes are again seen at the acromioclavicular joint. The glenohumeral joint is well maintained. R oughening of the greater tuberosity is noted. This may be postsurgical or posttraumatic. No acute f racture or dislocation is seen. The soft tissues are unremarkable. IMPRESSION: Degenerative and postsurgical changes in the right shoulder. DATA REPOSITORY: RADIATION DOSE DELIVERED:
== END 2020-12-23 11:36 | disposition home or self-care (01) ==
LOC: DIORS 11:35
PROVIDERS: PCP Internal Medicine; Visit Provider Student in an Organized Health Care Education/Training Program
DX: M19.011 Primary osteoarthritis, right shoulder (principal); M25.511 Pain in right shoulder
CPT/HCPCS: 73030

== ENCOUNTER 2021-04-20 08:47 | Outpatient (CLI) | payer BC, SELFPAY ==
--- NOTE | 2021-04-20 08:30 | DI.RAD_ITS ---
Exam(s) XR KNEE LT 3V AP,LAT,GRETTA EXAM: XR KNEE LT 3V AP,LAT,GRETTA CLINICAL HISTORY: LEFT KNEE PAIN. TECHNIQUE: 2D digital imaging was performed. COMPARISON: CR XR knee RT 2V AP,lat from 03/12/2019 FINDINGS: There is a left knee prosthesis. It appears to be satisfactory position alignment. No fracture or l oosening evident. No radiographic evidence of osteomyelitis. Two calcific densities are noted in th e anterior aspect the joint in the Hoffa fat pad level. IMPRESSION: DATA REPOSITORY: RADIATION DOSE DELIVERED:
== END 2021-04-20 08:48 | disposition home or self-care (01) ==
LOC: DIORS 08:47
PROVIDERS: PCP Internal Medicine; Referring Provider Internal Medicine; Visit Provider Student in an Organized Health Care Education/Training Program
DX: M25.562 Pain in left knee (principal); Z96.652 Presence of left artificial knee joint
CPT/HCPCS: 73562

== ENCOUNTER 2021-11-24 16:33 | Outpatient (REF) | payer BC, SELFPAY ==
[2021-11-24 15:29] LABS: HGB 13.5 g/dL (13.5-17.5); MCH 30.3 pg (27.0-33.0); MCHC 33.8 % (32.0-36.0); MCV 89.7 fL (80-95); Platelet Count 185 10^3/uL (130-400); RBC 4.46 10^6/uL (4.36-5.78); RDW 12.3 % (11.8-14.1); RDW-SD 40.2 fL
[2021-11-24 15:36] LABS: Anion Gap 9.4 mmol/L (3-11); BUN 20 mg/dL (7-18); CO2 26.6 mmol/L (21.0-32.0); Calcium 8.9 mg/dL (8.5-10.1); Chloride 107 mmol/L (98-107); Glucose 81 mg/dL (74-106); Magnesium 2.2 mg/dL (1.8-2.4); Potassium 4.4 mmol/L (3.5-5.1); Sodium 143 mmol/L (136-145)
== END 2021-11-24 16:34 | disposition home or self-care (01) ==
LOC: NCHCN 16:33
PROVIDERS: PCP Internal Medicine; Visit Provider Internal Medicine
DX: R06.09 Other forms of dyspnea (principal); I48.0 Paroxysmal atrial fibrillation; R42 Dizziness and giddiness
CPT/HCPCS: 80048; 85027; 83735

== ENCOUNTER 2021-12-31 02:10 | Outpatient (CLI) | payer BC, SELFPAY ==
--- NOTE | 2021-12-31 | DI.US_ITS ---
APPROVED REPORT EXAM: Comprehensive 2D, Doppler, and color-flow Echocardiogram Patient Location: Out-Patient Director Alumni Relations: Karla De La Cruz RDCS (AE) Indications: Ascending aorta dilation Other Information Study Quality: Adequate. Technically limited study due to body habitus. Conclusion Normal left ventricular wall thickness and chamber size. Estimated ejection fraction is 60%. Wall m otion is normal The right ventricle was not well visualized Both atria are normal in size The aortic valve is sclerotic and trileaflet. There is no aortic stenosis. There is trace to mild a ortic regurgitation Mildly thickened mitral leaflets with trace to mild regurgitation Normal tricuspid valve with moderate regurgitation. Estimated right ventricular systolic pressure is 30 mmHg Dilated ascending aorta measuring 4.05 cm Wall motion Left Ventricle The left ventricle is normal size. The left ventricular systolic function is normal. The left ventric ular ejection fraction is within the normal range. There is normal left ventricular wall thickness. T here is normal LV segmental wall motion. There is no ventricular septal defect visualized. LVEF is 60 %. Right Ventricle Right ventricle is not well visualized. Right ventricular systolic function could not be assessed. Th e RVSP is 29.9mmHg. Atria The left atrium size is normal. The right atrium size is normal. The interatrial septum is intact wit h no evidence for an atrial septal defect. Aortic Valve The Aortic valve is sclerotic. Aortic valve is trileaflet. There is no aortic valvular stenosis. Trac e to mild aortic regurgitation. Mitral Valve Mitral valve leaflets are mildly thickened. No evidence of mitral valve stenosis. Trace to mild renae l regurgitation. Tricuspid Valve The tricuspid valve is normal in structure. There is no tricuspid valve stenosis. Moderate tricuspid regurgitation. Pulmonic Valve The pulmonary valve is normal in structure. There is no pulmonic valvular stenosis. Trace to mild pul airam regurgitation. Great Vessels The aortic root is normal in size. The ascending aorta is moderately dilated.4.05 cm Aortic arch is n ormal in caliber. IVC is normal in size and collapses >50% with inspiration. Pericardium There is no pericardial effusion. 2D Dimensions IVSD d PLAX 0.77 cm M: 0.6-1.2 LVPW d PLAX 0.78 cm M: 0.6 - 1.2 LVID d PLAX 5.09 cm M: 4.2 - 5.8 LVDs 3.20 cm M: 2.5 - 4.0 Ao Root d 3.77 cm M: 3.1 - 3.7 Ao Asc Diam d 4.05 cm M: 2.6 - 3.4 LV EF North 65.7 % FS 36.30 % M-Mode TAPSE 2.76 cm (M/F) >1.7 LV Diastology MV E' medial 0.075 (>0.07 m/s) E/A Ratio 0.7 LV E/e MED 7.25 (<14) MV E Vmax 0.54 (0.4-1.3 m/s) MV E' lateral 0.086 (>0.1 m/s) MV A Vmax 0.80 (0.4-1.3 m/s) LV E/e LAT 6.35 (<14) MV E/A Ratio 0.64 MV E/E' medial 7.30 MV E/E' lateral 6.36 Aortic Valve LVOT Area 3.86 cm2 AoV Area Vmax 3.03 cm2 LVOT Vmax 0.96 m/s AoV Area/ BSA (Vmax) 1.43 cm2/m2 LVOT Mean Kem. 0.72 m/s MANJEET Mean Kem. 2.85 cm2 LVOT Peak Grad 3.7 mmHg MANJEET Mean Kem. Index 1.35 cm2/m2 LVOT Mean Grad 2.2 mmHg LVOT VTI 0.235 m LVOT Diam s 2.20 cm AoV Vmax 1.22 m/s Velocity Ratio 0.78 AoV Mean Kem. 0.97 m/s AoV Peak Grad 6.0 mmHg LVOT SV 90.88 mL AoV Mean Grad 4.0 mmHg AoV VTI 0.335 m AoV Area VTI 2.71 cm2 AoV Area/ BSA (VTI) 1.28 cm/m2 Mitral Valve MV DT 403 (160-240 msec) MV PHT 117 msec MV Area PHT 1.88 cm2 MV VTI 0.283 m MV Area VTI 3.21 (4.0-6.0 cm2) Pulmonary Valve PV Vmax 0.70 (0.5-1.5 m/s) RVOT Peak Gr. 1.21 mmHg PV Peak Grad 1.9 mmHg RVOT Mean Gr. 0.60 mmHg PV Mean Grad 1.0 mmHg RVOT VTI 0.123 m PV VTI 0.164 m RVOT Vmax 0.55 m/s Tricuspid Valve TR Peak Grad 26.8 mmHg TR Vmax 2.59 m/s RA Pressure 3.00 mmHg RVSP (TR) 29.9 mmHg
== END 2021-12-31 02:30 ==
PROVIDERS: PCP Internal Medicine; Visit Provider Internal Medicine
DX: I77.819 Aortic ectasia, unspecified site (principal)
CPT/HCPCS: 93306

== ENCOUNTER 2022-03-30 15:44 | Outpatient (REF) | payer BC, SELFPAY ==
[2022-03-30 16:57] LABS: Vitamin B12 380 pg/mL (193-986)
== END 2022-03-30 15:45 | disposition home or self-care (01) ==
LOC: NCHCN 15:44
PROVIDERS: PCP Internal Medicine; Visit Provider Internal Medicine
DX: G62.89 Other specified polyneuropathies (principal)
CPT/HCPCS: 82607

== ENCOUNTER 2022-08-07 12:37 | Emergency (ER) | payer BC, SELFPAY ==
[2022-08-07 12:53] VITALS: BP 124/68; PULSE 88; RESP 16; TEMP 36.6; O2SAT 97
[2022-08-07] MEDS: Normal Saline 1,000 ML 1000 ML IV (13:19)
[2022-08-07 13:20] LABS: Lactate 0.7 mmol/L (0.6-1.4)
[2022-08-07 13:21] LABS: Abs Immature Grans 0.01 10^3/uL (0.0-0.06); Absolute Basophil Count 0.02 10^3/uL (0.0-0.2); Absolute Eosinophil Count 0.18 10^3/uL (0.0-0.7); Absolute Lymphocyte Count 0.61 10^3/uL (1.2-3.4); Absolute Monocyte Count 0.51 10^3/uL (0.1-0.8); Basophils % 0.5; Eosinophils % 4.2; HCT 40.3 % (40.0-50.0); Immature Grans % 0.2; Lymphocytes % 14.1; MCH 30.6 pg (27.0-33.0); MCHC 34.7 % (32.0-36.0); MCV 88 fL (80-95); MPV 9.3 fL (8.0-11.0); Monocytes % 11.8; Neutrophils % 69.2; Platelet Count 161 10^3/uL (130-400); RBC 4.57 10^6/uL (4.36-5.78); RDW 12.1 % (11.8-14.1); RDW-SD 39.1 fL; WBC 4.33 10^3/uL (4.4-10.8)
[2022-08-07 13:37] LABS: ALT 52 U/L (16-63); AST 39 U/L (15-37); Albumin 4.1 g/dL (3.4-5.0); Alkaline Phosphatase 68 U/L (46-116); Anion Gap 6.6 mmol/L (3-11); BUN 17 mg/dL (7-18); Bilirubin, Total 0.8 mg/dL (0.2-1.0); CO2 29.4 mmol/L (21.0-32.0); CREATININE 1.1 mg/dL (0.70-1.30); Calcium 9.2 mg/dL (8.5-10.1); Chloride 106 mmol/L (98-107); Estimated GFR 73.12 (mL/min/1.73m2); Glucose 94 mg/dL (74-106); Magnesium 1.8 mg/dL (1.8-2.4); Potassium 4.6 mmol/L (3.5-5.1); Sodium 142 mmol/L (136-145); Total Protein 7.4 g/dL (6.4-8.2)
--- NOTE | 2022-08-07 14:20 | ED.GENADUL_ITS ---
Discharge Plan Disposition Patient Disposition: HOME Condition: Stable Discharge Details Clinical Impression: Diarrhea Primary Care Provider: Hong Sadler ED Provider: Didier Latham Home Meds and New Rx's Prescriptions: Continued diphenoxylate-atropine 2.5-0.025 mg tablet 1 tab PO Q2H PRN PRN atorvastatin 40 mg tablet 40 mg PO DAILY Eliquis 5 mg tablet 5 mg PO BID pantoprazole 40 mg tablet,delayed release (DR/EC) 40 mg PO DAILY PRN mirtazapine 15 mg tablet 15 mg PO QHS metoprolol tartrate 25 mg tablet 12.5 mg PO DAILY gabapentin [Neurontin] 300 MG capsule 600 mg PO HS Probiotic 3 billion cell Capsule PO DAILY Discontinued amoxicillin 500 mg Tablet See Rx Instructions .ROUTE .COMPLEX Rx Instructions: 2,000 mg orally Take 4 tabs PO 1 hour prior to dental procedure Discharge Instructions Instructions: Acute Diarrhea (ED) Additional Instructions: Please continue to follow the recommendations and medications given by your oncology team. If you develop any new or significant worsening of symptoms such as fever chills, blood or mucus in your stools, or further concerns please return to the emergency department for reassessment. Otherwise follow-up with your primary care and oncology team as previously arranged. Referrals: Hong Sadler MD [Primary Care Provider] - Discharge Data Discharge Date/Time-TO BE ENTERED AT DEPARTURE: 08/07/22 14:39 Medical Decision Making Patient presenting to the emergency department for chief complaint of diarrhea and possible dehydration. Patient reports that he is 22 days into a 43-day treatment course of radiation therapy for return of his prostate cancer. He was informed that his diarrhea would continue to worsen until localized radiation is started which is in a couple days. Patient denies any fever chills and states watery diarrhea. Denies any blood or mucus. Denies any other systemic symptoms. Physical exam is unremarkable with normal cardiac and respiratory exam, no tachycardia, no hypotension, normal active bowel sounds with soft nontender abdomen. I do feel that patient is having symptoms secondary to his r adiation therapy. We will plan on checking labs and giving IV fluids pending results. Review labs which show a slightly decreased WBC at 4.3, low lymphocytes that 0.61. CMP is unremarkable with normal BUN and creatinine except for slightly elevated AST at 39. Lactate is 0.7. I do feel that patient is able to be safely discharged with no further work-up at this time but did encourage close monitoring of symptoms with return and follow-up precautions especially over this weekend. Patient to otherwise continue prescribed medications for symptom control and also discussed potential dietary habits that could benefit him as well. After discussion of diagnosis and plan of care patient has no further needs, questions, or concerns and states clear understanding to return to the emergency department for any worsening symptoms. This documentation was generated using Numerate dictation system, please disregard any oddities of phrase or misspellings. HPI General Mode of arrival: ambulatory . Date/Time Provider Initiated Documentation: 08/07/22 12:54 . Limitations to Documentation: no limitations . Information obtained by: patient and RN notes reviewed . History of Present Illness 66 year old M presents to the emergency department with the chief complaint of Diarrhea and low oral intake, described as moderate, Quality is described as other (denies pain ), and is localized to the abdomen. Patient started experiencing this week(s) (1) and it has been constant. No relieving factors improve symptom(s), No exacerbating factors reported . Patient notes loss of appetite; denies chest pain and fever/chills. Related Data Home Medications Medication Instructions Recorded Confirmed gabapentin 300 mg capsule 600 mg PO HS 02/24/13 08/07/22 (Neurontin) apixaban 5 mg tablet (Eliquis) 5 mg PO BID 03/12/19 08/07/22 atorvastatin 40 mg tablet 40 mg PO DAILY 03/12/19 08/07/22 diphenoxylate-atropine 2.5 1 tab PO Q2H PRN PRN 03/12/19 08/07/22 mg-0.025 mg tablet pantoprazole 40 mg tablet,delayed 40 mg PO DAILY PRN 03/12/19 08/07/22 release lactobacillus combination no.4 3 cell PO DAILY 06/29/19 04/19/22 billion cell capsule (Probiotic) mirtazapine 15 mg tablet 15 mg PO QHS 07/09/20 08/07/22 metoprolol tartrate 25 mg tablet 12.5 mg PO DAILY 12/24/21 08/07/22 Allergies Allergy/AdvReac Type Severity Reaction Status Date / Time No Known Allergies Allergy Verified 08/07/22 12:59 General Stated Complaint: Nausea/Vomit/Diar HERMAN: 3 Review of Systems Constitutional Constitutional: Denies chills, Denies fever(s) and Reports poor appetite Cardiovascular Cardiovascular: Denies chest pain and Denies dyspnea Respiratory Respiratory: Denies cough and Denies dyspnea Gastrointestinal Gastrointestinal: Reports as per HPI, Denies abdominal pain, Denies melena, Denies change in bowel habits, Denies constipation, Reports diarrhea, Reports nausea and Denies vomiting Genitourinary Genitourinary: Denies oliguria, Denies difficulty urinating and Denies dysuria Integumentary/Breasts Skin/Breast: Denies rash PFSH All Active Problems (Updated 08/07/22 @ 14:26 by Didier Latham NP) Diarrhea (Acute) Sebaceous cyst (Acute) Cardiomyopathy (Chronic) Chest pain (Acute) ST segment changes on electrocardiogram (Acute) A-fib (Chronic) Medical History (Updated 08/07/22 @ 14:26 by Didier Latham NP) Adenocarcinoma of prostate Ascending aorta dilatation Bursitis of right shoulder (~05/12/19) Carpal tunnel syndrome of right wrist Chronic venous insufficiency Contracture of right knee Cubital tunnel syndrome on right Elevated PSA Hand joint stiff Hx of testicular cancer Impingement syndrome of right shoulder (~05/12/19) Injury of right rotator cuff (05/12/19) Irritable bowel syndrome Left inguinal hernia Left lateral epicondylitis No-show for appointment Osteoarthritis of right knee Primary osteoarthritis of right knee Right carpal tunnel syndrome Rotator cuff tear, right (~05/12/19) Scapular dyskinesis SLAP lesion of right shoulder (~05/12/19) Stiffness of right shoulder joint (~05/2019) Tendonitis of long head of biceps brachii of right shoulder (~05/12/19) TIA (transient ischemic attack) Caused by his atrial fibrillation prior to treatment Trigger finger, right little finger Trigger finger, right middle finger (~07/2019) 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 Surgical History History of colon resection For ileus caused by narcotics after previous left total knee replacement History of colonoscopy History of radical prostatectomy History of total left knee replacement (TKR) Social History Smoking/Tobacco Use Status: Never Smoking risk assessment performed?: Yes Alcohol Intake: current Alcohol Intake frequency: a few times a week Alcohol type: beer Drug use: Never Substance use type: does not use Current gender identity: male Do you feel safe at home: Yes Do you feel safe in your relationship?: Yes Exam Const General: cooperative Orientation: alert, awake and oriented x3 Resp Effort & Inspection: normal respiratory effort and able to speak in complete sentences Auscultation: clear to auscultation bilaterally Cardio Rate: regular rate Rhythm: regular rhythm Heart Sounds: S1 normal and S2 normal GI Palpation: soft, no hepatosplenomegaly, not firm, no guarding, no masses, no pulsatile masses, not rigid, no splenomegaly and nontender Auscultation: normal bowel sounds Back/Spine/Pelvis Back: no CVA tenderness Neuro General: patient alert, patient awake, patient oriented x3, gait normal and moves all extremities Course Vital Signs Vital signs: Vital Signs Temperature 36.6 C 08/07/22 12:53 Pulse 88 08/07/22 12:53 Respiratory Rate 16 08/07/22 12:53 Blood Pressure 124/68 08/07/22 12:53 Pulse Oximetry 97 08/07/22 12:53 Temperature 36.6 C 08/07/22 12:53 Temperature Source Temporal Artery Scan 08/07/22 12:53 Pulse 88 08/07/22 12:53 Respiratory Rate 16 08/07/22 12:53 Respiratory Effort Non-Labored 08/07/22 12:57 Blood Pressure 124/68 08/07/22 12:53 Blood Pressure Position Sitting 08/07/22 12:53 Pulse Oximetry 97 08/07/22 12:53 Oxygen Delivery Method Room Air 08/07/22 12:53 Oxygen Flow Rate 0 08/07/22 12:53 Pain Level 0 08/07/22 12:53 Lab/Test Results Lab/Test Results: Laboratory Tests Range/Units 08/07/22 08/07/22 08/07/22 13:15 13:15 13:15 WBC (4.4-10.8) 10^3/uL 4.33 L RBC (4.36-5.78) 10^6/uL 4.57 Hgb (13.5-17.5) g/dL 14.0 Hct (40.0-50.0) % 40.3 MCV (80-95) fL 88 MCH (27.0-33.0) pg 30.6 MCHC (32.0-36.0) % 34.7 RDW (11.8-14.1) % 12.1 Plt Count (130-400) 10^3/uL 161 MPV (8.0-11.0) fL 9.3 Immature Gran % 0.2 Neutrophils % 69.2 Lymphocytes % 14.1 Monocytes % 11.8 Eosinophils % 4.2 Basophils % 0.5 Nucleated RBC % (0.0-0.3) % 0.0 Absolute Neutrophils (1.2-6.7) 10^3/uL 3.00 Absolute Lymphocytes (1.2-3.4) 10^3/uL 0.61 L Absolute Monocytes (0.1-0.8) 10^3/uL 0.51 Absolute Eosinophils (0.0-0.7) 10^3/uL 0.18 Absolute Basophils (0.0-0.2) 10^3/uL 0.02 VBG Lactate (0.6-1.4) mmol/L 0.7 Sodium (136-145) mmol/L 142 Potassium (3.5-5.1) mmol/L 4.6 Chloride (98-107) mmol/L 106 Carbon Dioxide (21.0-32.0) mmol/L 29.4 Anion Gap (3-11) mmol/L 6.6 BUN (7-18) mg/dL 17 Creatinine (0.70-1.30) mg/dL 1.1 Est GFR (CKD-EPI 2020) (mL/min/1.73m2) 73.12 Glucose (74-106) mg/dL 94 Calcium (8.5-10.1) mg/dL 9.2 Magnesium (1.8-2.4) mg/dL 1.8 Total Bilirubin (0.2-1.0) mg/dL 0.8 AST (15-37) U/L 39 H ALT (16-63) U/L 52 Alkaline Phosphatase (46-116) U/L 68 Total Protein (6.4-8.2) g/dL 7.4 Albumin (3.4-5.0) g/dL 4.1
== END 2022-08-07 14:39 | disposition home or self-care (01) ==
PROVIDERS: Emergency Provider Nurse Practitioner Family; PCP Internal Medicine
DX: R19.7 Diarrhea, unspecified (principal); C61 Malignant neoplasm of prostate; C62.90 Malignant neoplasm of unspecified testis, unspecified whether descended or undescended; D72.819 Decreased white blood cell count, unspecified; Z86.73 Personal history of transient ischemic attack (TIA), and cerebral infarction without residual deficits
CPT/HCPCS: 36415; 80053; 96360; 99284; 83605; 83735; 85025

== ENCOUNTER 2022-08-20 15:21 | Emergency (ER) | payer BC, SELFPAY ==
[2022-08-20] VITALS (19 sets, daily range): BP systolic 114–142; BP diastolic 56–77; PULSE 61–81; RESP 10–23; TEMP 36.3; O2SAT 95–99
--- NOTE | 2022-08-20 15:15 | RT.EKG_ITS ---
APPROVED REPORT Exam: Resting ECG Reason for Exam: CHEST PAIN Patient Location: E HR:75 bpm ECG Measurements Heart Rate 75 AXIS NC 162 P 84 QRSd 98 QRS 52 QT 362 T 264 QTc 405 Conclusion Sinus rhythm...normal P axis, V-rate 60- 99 Repol abnrm suggests ischemia, anterolateral...ST dep, T neg, I aVL V2-V6. Sinus. Normal axis. 1-2mm ST depressions in inferior and anterolateral leads which appeared more pron ounced compared to January 2020. No STEMI. I have reviewed and interpreted ECG and agree with software generated interpretation.
--- NOTE | 2022-08-20 16:00 | DI.RAD_ITS ---
Exam(s) XR CHEST 2V PA LATERAL EXAM: XR CHEST 2V PA LATERAL CLINICAL HISTORY: CP. TECHNIQUE: 2D digital imaging was performed. COMPARISON: CR,XR XR PORTABLE CHEST AP from 01/13/2020 FINDINGS: 2 views: Heart size is normal. The mediastinum is not widened. Lungs are clear. No infiltrates nor pleural effusions. IMPRESSION: No acute pulmonary findings. DATA REPOSITORY: RADIATION DOSE DELIVERED:
--- NOTE | 2022-08-20 16:10 | ED.GENADUL_ITS ---
Discharge Plan Disposition Patient Disposition: Home Condition: Stable Discharge Details Clinical Impression: Chest pain Primary Care Provider: Hong Sadler ED Provider: Ev Womack Home Meds and New Rx's Prescriptions: Continued diphenoxylate-atropine 2.5-0.025 mg tablet 1 tab PO Q2H PRN PRN atorvastatin 40 mg tablet 40 mg PO DAILY Eliquis 5 mg tablet 5 mg PO BID pantoprazole 40 mg tablet,delayed release (DR/EC) 40 mg PO DAILY PRN mirtazapine 15 mg tablet 7.5 mg PO QHS metoprolol tartrate 25 mg tablet 12.5 mg PO DAILY gabapentin [Neurontin] 300 MG capsule 600 mg PO HS Probiotic 3 billion cell Capsule 1 cell PO DAILY Discharge Instructions Instructions: Chest Pain (ED) Additional Instructions: As we discussed, your labs and x-ray are reassuring here today. However, I would like for you to discuss your chest discomfort with your primary care and Dr. Mcgrath as you will likely need a stress test and/or repeat echo. Please stay with your kids, if you develop shortness of breath, difficulty breathing, recurrent chest pain, dizziness or other new/worseing symptoms please seek care urgently once again. Please call Dr. Mcgrath and your primary care Tuesday to schedule prompt follow up appointment. Referrals: Cheryl Mcgrath MD [[facility] STAFF PHYSICIAN] - Hong Sadler MD [Primary Care Provider] - Discharge Data Discharge Date/Time-TO BE ENTERED AT DEPARTURE: 08/20/22 19:47 Medical Decision Making Patient is a pleasant 66-year-old gentleman presenting today with chief complaint of chest pain. Patient currently chest pain-free. He reports that he began having symptoms about 3 hours ago. Had 2 episodes during that time with no exacerbating factors. He has not had discomfort like this before. States that he is currently being treated for prostate cancer with radiation. He last received radiation this morning. States that he had a prostatectomy almost 2 years ago for prostate cancer. Has been doing well but noted to have increasing CEA several months ago. Began radiation again, generally to the abdominal cavity at first, with concern of recurrence. States that now the edema is more focused over the area of the prostate, or where this would have been postsurgical. He states that he has been having difficulty with nausea and decreased appetite, since July as well as a total of 18 pounds. Denies any difficulty urinating. No fevers or chills. Denies any shortness of breath. States that about 2 days ago he was feeling unwell and felt that things were distant. No headache. No dizziness. No shortness of breath or chest pain at that time. Continues to deny any chest pain. Patient is anticoagulated on apixaban for paroxysmal atrial fibrillation has not had any missed doses. No recent change in medication. Ambulation or exertion did not change or worsen his chest discomfort. States that it came on fairly suddenly and stopped fairly abruptly. States that the pain did improve a few minutes after burping. States that acid reflux is chronic for the patient. Past medical history is pertinent for idiopathic cardiomyopathy which is since resolved. Patient reports that he is being followed by [facility]. No continued pain, no radiation of pain, no pain into his back. Obtained some notes from cardiology. Last cardiac testing was in 2019 and reported to be unremarkable. Normal EF with no persistent left ventricular dysfunction. On exam, patient appears nontoxic. Lungs are clear, normal cardiac exam. No LE edema, no calf tenderness. Concerned for ACS. He has not had any symptoms with exertion. Pain occurred during times of rest. He is not having persisent pain, pain radiating into back, he is hemodynamically stable. I do not see evidence of dissection. He is anticoagulated, is not SOB, tachycardic or hypoxia to suggest PE. Also considered MSK discomfort, infection such as pneumonia, GI upset of chostochondritis vs. other. FINDINGS: 2 views: Heart size is normal.? The mediastinum is not widened. Lungs are clear.? No infiltrates nor pleural effusions. IMPRESSION: No acute pulmonary findings. Labs reviewed. No leukocytosis. Slightly anemic with a hemoglobin of 12.3. CMP without significant abnormality. Initial troponin within normal limits. Plan for repeat. Patient remains comfortable, no recurrence of his discomfort. Repeat troponin remains WNL. Discussed with patient. He continues to be asymptomatic and hemodynamically stable. We discussed inpatient vs. outpatient management, he would prefer to go home. He has family local, is able to return urgently with recurrent or worsening symptoms. Advised close f/u with PCP. Also will f/u with cardiology. Strict return precautions discussed. All of his questions and concerns were addressed, he is in agreeemnt iwth this plan. Sign Out No HPI General Date/Time Provider Initiated Documentation: 08/20/22 15:40 . Limitations to Documentation: no limitations . Information obtained by: patient, RN notes reviewed and old records reviewed . History of Present Illness 66 year old M presents to the emergency department with the chief complaint of chest pain, described as moderate, Quality is described as aching, and is localized to the chest. Patient reports no radiation. Patient started experiencing this hour(s) and it has been intermittent (2 episodes, initial lasted a few hours when at rest, none currerntly) and now resolved. No relieving factors improve symptom(s), No exacerbating factors reported . Patient notes chest pain, loss of appetite (improving, associates with radiation) and malaise (associates with radiation, ongoing issue ); denies cough, diaphoresis and nausea/vomiting. Related Data Home Medications Medication Instructions Recorded Confirmed gabapentin 300 mg capsule 600 mg PO HS 02/24/13 08/20/22 (Neurontin) apixaban 5 mg tablet (Eliquis) 5 mg PO BID 03/12/19 08/20/22 atorvastatin 40 mg tablet 40 mg PO DAILY 03/12/19 08/20/22 diphenoxylate-atropine 2.5 1 tab PO Q2H PRN PRN 03/12/19 08/20/22 mg-0.025 mg tablet pantoprazole 40 mg tablet,delayed 40 mg PO DAILY PRN 03/12/19 08/20/22 release lactobacillus combination no.4 3 1 cell PO DAILY 06/29/19 08/20/22 billion cell capsule (Probiotic) mirtazapine 15 mg tablet 7.5 mg PO QHS 07/09/20 08/20/22 metoprolol tartrate 25 mg tablet 12.5 mg PO DAILY 12/24/21 08/20/22 Allergies Allergy/AdvReac Type Severity Reaction Status Date / Time No Known Allergies Allergy Verified 08/07/22 12:59 General Stated Complaint: Chest Pain HERMAN: 2 Review of Systems Constitutional Constitutional: Reports as per HPI, Denies chills, Denies fever(s) and Denies headache(s) ENT Ears, Nose, Mouth, and Throat: Denies dizziness and Denies headache(s) Cardiovascular Cardiovascular: Reports as per HPI, Denies dyspnea and Denies dyspnea on e xertion Respiratory Respiratory: Reports as per HPI, Denies chest congestion, Denies cough, Denies pain on inspiration, Denies dyspnea and Denies dyspnea on exertion Gastrointestinal Gastrointestinal: Reports as per HPI, Denies abdominal pain, Denies diarrhea, Denies nausea and Denies vomiting Genitourinary Genitourinary: Denies system reviewed and no additional complaints, except as documented (denies change in urinary habits) Musculoskeletal Musculoskeletal: Reports as per HPI and Denies back pain Integumentary/Breasts Skin/Breast: Reports as per HPI and Denies rash Neurologic Neurologic: Reports as per HPI, Denies dizziness and Denies headache(s) PFSH All Active Problems (Updated 08/20/22 @ 19:15 by MIKY Rivera) Diarrhea (Acute) Chest pain (Acute) Sebaceous cyst (Acute) Cardiomyopathy (Chronic) Chest pain (Acute) ST segment changes on electrocardiogram (Acute) A-fib (Chronic) Medical History (Updated 08/20/22 @ 19:15 by MIKY Rivera) Adenocarcinoma of prostate Ascending aorta dilatation Bursitis of right shoulder (~05/12/19) Carpal tunnel syndrome of right wrist Chronic venous insufficiency Contracture of right knee Cubital tunnel syndrome on right Elevated PSA Hand joint stiff Hx of testicular cancer Impingement syndrome of right shoulder (~05/12/19) Injury of right rotator cuff (05/12/19) Irritable bowel syndrome Left inguinal hernia Left lateral epicondylitis No-show for appointment Osteoarthritis of right knee Primary osteoarthritis of right knee Right carpal tunnel syndrome Rotator cuff tear, right (~05/12/19) Scapular dyskinesis SLAP lesion of right shoulder (~05/12/19) Stiffness of right shoulder joint (~05/2019) Tendonitis of long head of biceps brachii of right shoulder (~05/12/19) TIA (transient ischemic attack) Caused by his atrial fibrillation prior to treatment Trigger finger, right little finger Trigger finger, right middle finger (~07/2019) 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 Surgical History History of colon resection For ileus caused by narcotics after previous left total knee replacement History of colonoscopy History of radical prostatectomy History of total left knee replacement (TKR) Social History Smoking/Tobacco Use Status: Never Smoking risk assessment performed?: Yes Alcohol Intake: current Alcohol Intake frequency: a few times a week Alcohol type: beer Drug use: Never Substance use type: does not use Current gender identity: male Do you feel safe at home: Yes Do you feel safe in your relationship?: Yes Exam Const General: cooperative, healthy appearing, comfortable, no acute distress and well developed Nutritional Appearance: average body habitus and well nourished Orientation: alert, awake and oriented x3 HENMT Head: normal to inspection Ears: hearing grossly normal bilaterally Mouth: moist mucous membranes Chest Chest: normal inspection of the chest, normal palpation of entire chest wall and no crepitus Resp Effort & Inspection: normal respiratory effort, able to speak in complete sentences and no respiratory distress Auscultation: clear to auscultation bilaterally, no rales, no rhonchi and no wheezes Cardio Rate: regular rate Rhythm: regular rhythm Heart Sounds: S1 normal and S2 normal GI Inspection: normal to inspection, no edema and non-distended Palpation: soft, no hepatosplenomegaly, not firm, no guarding, not rigid and nontender Auscultation: normal bowel sounds Skin General skin exam: no rashes or lesions noted Trauma: no lacerations or abrasions Neuro General: patient alert, patient awake and patient oriented x3 Cognition: normal cognition Speech: speech normal Gait: normal gait Extrem General: normal to inspection, no pedal edema, no calf tenderness and normal gait Psych Appearance: grossly normal and well kempt Mental Status: mental status grossly normal Speech and Movement: speech and movement normal Course Vital Signs Vital signs: Vital Signs Temperature 36.3 C L 08/20/22 15:27 Pulse 74 08/20/22 15:27 Respiratory Rate 17 08/20/22 15:27 Blood Pressure 138/67 08/20/22 15:27 Pulse Oximetry 99 08/20/22 15:27 Temperature 36.3 C L 08/20/22 15:27 Temperature Source Temporal Artery Scan 08/20/22 15:27 Pulse 74 08/20/22 15:27 Respiratory Rate 17 08/20/22 15:27 Blood Pressure 138/67 08/20/22 15:27 Blood Pressure Position Sitting 08/20/22 15:27 Pulse Oximetry 99 08/20/22 15:27 Oxygen Delivery Method Room Air 11/18/22 15:27 Oxygen Flow Rate 0 08/20/22 15:27 Pain Level 0 08/20/22 15:27
[2022-08-20 16:25] LABS: Abs Immature Grans 0.02 10^3/uL (0.0-0.06); Absolute Basophil Count 0.02 10^3/uL (0.0-0.2); Absolute Lymphocyte Count 0.76 10^3/uL (1.2-3.4); Absolute Monocyte Count 0.66 10^3/uL (0.1-0.8); Absolute Neutrophil Count 3.25 10^3/uL (1.2-6.7); Basophils % 0.4; Eosinophils % 4.1; HCT 34.8 % (40.0-50.0); HGB 12.3 g/dL (13.5-17.5); Immature Grans % 0.4; Lymphocytes % 15.5; MCH 30.5 pg (27.0-33.0); MCHC 35.3 % (32.0-36.0); MCV 86 fL (80-95); Monocytes % 13.4; Neutrophils % 66.2; Platelet Count 154 10^3/uL (130-400); RBC 4.03 10^6/uL (4.36-5.78); RDW 12.3 % (11.8-14.1); RDW-SD 38.9 fL; WBC 4.91 10^3/uL (4.4-10.8)
[2022-08-20] MEDS: Aspirin 81 MG CHEW 324 MG CH (16:29)
[2022-08-20] MEDS: Mylanta Suspension 30 ML CUP PO (16:29)
[2022-08-20] MEDS: Lactated Ringers 500 ML IV (16:30)
[2022-08-20 16:42] LABS: ALT 32 U/L (16-63); AST 29 U/L (15-37); Albumin 3.7 g/dL (3.4-5.0); Alkaline Phosphatase 59 U/L (46-116); Anion Gap 7.4 mmol/L (3-11); BUN 17 mg/dL (7-18); Bilirubin, Total 0.8 mg/dL (0.2-1.0); CO2 26.6 mmol/L (21.0-32.0); Calcium 8.7 mg/dL (8.5-10.1); Chloride 104 mmol/L (98-107); Estimated GFR 81.98 (mL/min/1.73m2); Glucose 85 mg/dL (74-106); Magnesium 1.7 mg/dL (1.8-2.4); Potassium 3.6 mmol/L (3.5-5.1); Sodium 138 mmol/L (136-145); Total Protein 6.5 g/dL (6.4-8.2); Troponin I < 50 ng/L (<or=60)
--- NOTE | 2022-08-20 18:30 | RT.EKG_ITS ---
APPROVED REPORT Exam: Resting ECG Reason for Exam: CP Patient Location: E HR:68 bpm ECG Measurements Heart Rate 68 AXIS UT 178 P 66 QRSd 112 QRS 12 QT 428 T -55 QTc 454 Conclusion Sinus rhythm...normal P axis, V-rate 60- 99. Sinus. Normal axis. No STEMI. I have reviewed and interpreted ECG and agree with software generated interpretation.
[2022-08-20 18:46] LABS: Troponin I < 50 ng/L (<or=60)
== END 2022-08-20 19:47 | disposition home or self-care (01) ==
PROVIDERS: Emergency Provider Physician Assistant; PCP Internal Medicine
DX: R07.9 Chest pain, unspecified (principal); C61 Malignant neoplasm of prostate; I48.0 Paroxysmal atrial fibrillation; Z79.01 Long term (current) use of anticoagulants; Z90.79 Acquired absence of other genital organ(s)
CPT/HCPCS: 36415; 80053; 93005; 96360; 99284; 71046; 83735; 84484; 85025; 93010; 99285

== ENCOUNTER 2022-09-13 12:40 | Outpatient (CLI) | payer BC, SELFPAY ==
[2022-09-13 08:55] LABS: Abs Immature Grans 0.02 10^3/uL (0.0-0.06); Absolute Basophil Count 0.04 10^3/uL (0.0-0.2); Absolute Eosinophil Count 0.17 10^3/uL (0.0-0.7); Absolute Lymphocyte Count 0.82 10^3/uL (1.2-3.4); Absolute Monocyte Count 0.59 10^3/uL (0.1-0.8); Absolute Neutrophil Count 2.37 10^3/uL (1.2-6.7); Eosinophils % 4.2; HCT 36.3 % (40.0-50.0); HGB 12.2 g/dL (13.5-17.5); Immature Grans % 0.5; Lymphocytes % 20.4; MCH 30.7 pg (27.0-33.0); MCHC 33.6 % (32.0-36.0); MCV 91 fL (80-95); Monocytes % 14.7; Neutrophils % 59.2; Platelet Count 175 10^3/uL (130-400); RBC 3.98 10^6/uL (4.36-5.78); RDW 13.4 % (11.8-14.1); RDW-SD 44.8 fL; WBC 4.01 10^3/uL (4.4-10.8)
[2022-09-13 09:19] LABS: ALT 45 U/L (16-63); AST 34 U/L (15-37); Albumin 3.6 g/dL (3.4-5.0); Alkaline Phosphatase 69 U/L (46-116); Anion Gap 8.5 mmol/L (3-11); BUN 28 mg/dL (7-18); CO2 26.5 mmol/L (21.0-32.0); CREATININE 1.2 mg/dL (0.70-1.30); Calcium 8.7 mg/dL (8.5-10.1); Chloride 104 mmol/L (98-107); Estimated GFR 65.46 (mL/min/1.73m2); Glucose 95 mg/dL (74-106); Potassium 4.3 mmol/L (3.5-5.1); Sodium 139 mmol/L (136-145); Total Protein 6.6 g/dL (6.4-8.2)
[2022-09-14 18:31] LABS: PSA, Ultrasensitive <0.01 ng/mL (<= 4.5)
[2022-09-15 12:13] LABS: Testosterone, Total <7.0 ng/dL (240-950)
== END 2022-09-13 12:41 | disposition home or self-care (01) ==
LOC: LBO 12:40
PROVIDERS: PCP Internal Medicine; Visit Provider Radiology Radiation Oncology
DX: C61 Malignant neoplasm of prostate (principal)
CPT/HCPCS: 36415; 80053; 84153; 84403; 85025

== ENCOUNTER 2022-11-12 00:50 | Outpatient (CLI) | payer BC, SELFPAY ==
--- NOTE | 2022-11-12 10:20 | DI.US_ITS ---
APPROVED REPORT EXAM: Comprehensive 2D, Doppler, and color-flow Echocardiogram Patient Location: Out-Patient Software Programmer: Karla De La Cruz RDCS (AE) Indications: Ascending aorta dilation, Pre op knee Other Information Study Quality: Fair. Technically limited study due to body habitus. Conclusion Normal left ventricular wall thickness and chamber size. Estimated ejection fraction is 60%. Wall m otion is normal The right ventricle is grossly normal in size and systolic function The atria are normal in size Aortic valve is mildly sclerotic and trileaflet with mild regurgitation Thickened mitral leaflets with mild regurgitation Normal tricuspid valve with moderate regurgitation. Estimated right ventricular systolic pressure is 33 mmHg Dilated aortic root, 3.89 centimeter and ascending aorta, 4.14 cm Wall motion Left Ventricle The left ventricle is normal size. The left ventricular systolic function is normal. The left ventric ular ejection fraction is within the normal range. There is normal left ventricular wall thickness. T here is normal LV segmental wall motion. There is no ventricular septal defect visualized. LVEF is 60 %. Right Ventricle Right ventricle is grossly normal in size. Right ventricular systolic function is grossly normal.. Th e RVSP is 33.4 mmHg. Atria The left atrium size is normal. The right atrium size is normal. The interatrial septum is intact wit h no evidence for an atrial septal defect. Aortic Valve The Aortic valve is mildly sclerotic. Aortic valve is trileaflet. There is no aortic valvular stenosi s. Mild aortic regurgitation. Mitral Valve Mitral valve leaflets are thickened. No evidence of mitral valve stenosis. Mild mitral regurgitation . Tricuspid Valve The tricuspid valve is normal in structure. There is no tricuspid valve stenosis. Moderate tricuspid regurgitation. Pulmonic Valve The pulmonary valve is normal in structure. There is no pulmonic valvular stenosis. Trace pulmonic re gurgitation. Great Vessels Aortic root is mildly dilated. 3.89 cm The ascending aorta is moderately dilated.4.14 cm Aortic arch is normal in caliber. IVC is normal in size and collapses >50% with inspiration. Pericardium There is no pericardial effusion. 2D Dimensions IVSD d PLAX 0.81 cm M: 0.6-1.2 LV Vol A2C d MOD 111.0 mL LVPW d PLAX 0.86 cm M: 0.6 - 1.2 LV Vol A4C d MOD 117.9 mL LVID d PLAX 5.47 cm M: 4.2 - 5.8 LV EF A4C MOD 57.2 % LVDs 3.70 cm M: 2.5 - 4.0 LV EF A2C MOD 58.0 % Ao Root d 3.89 cm M: 3.1 - 3.7 LV EF Biplane MOD 55.8 % RA Area A4C 18.98 cm2 SV 64.01 mL RA Vol/ BSA A4C s A-L 26.8 mL/m2 SV Index 30.89 mL/m2 Ao Asc Diam d 4.14 cm M: 2.6 - 3.4 LV EF Teichholz 59.0 % LVEF (Shirley's) 55.85 % M: 52 - 72 LV Volume 84.97 mL M: 62 - 150 LV Volume Index 41.04 mL/m2 M: 34 - 74 LV Vol Biplane MOD 114.6 mL FS 31.60 % M-Mode TAPSE 3.29 cm (M/F) >1.7 LV Diastology MV E' medial 0.093 (>0.07 m/s) E/A Ratio 0.7 LV E/e MED 6.20 (<14) MV E Vmax 0.58 (0.4-1.3 m/s) MV E' lateral 0.073 (>0.1 m/s) MV A Vmax 0.80 (0.4-1.3 m/s) LV E/e LAT 7.85 (<14) MV E/A Ratio 0.70 MV E/E' medial 6.22 MV E/E' lateral 7.88 Aortic Valve LVOT Area 3.60 cm2 AoV Area Vmax 1.75 cm2 LVOT Vmax 0.71 m/s AoV Area/ BSA (Vmax) 0.84 cm2/m2 LVOT Mean Kem. 0.49 m/s MANJEET Mean Kem. 1.69 cm2 LVOT Peak Grad 2.0 mmHg MANJEET Mean Kem. Index 0.81 cm2/m2 LVOT Mean Grad 1.1 mmHg LVOT VTI 0.175 m LVOT Diam s 2.10 cm AoV Vmax 1.47 m/s Velocity Ratio 0.48 AoV Mean Kem. 1.05 m/s AoV Peak Grad 8.7 mmHg LVOT SV 62.87 mL AoV Mean Grad 4.9 mmHg AoV VTI 0.275 m AoV Area VTI 2.29 cm2 AoV Area/ BSA (VTI) 1.11 cm/m2 Mitral Valve MV DT 271 (160-240 msec) MV PHT 79 msec MV Area PHT 2.79 cm2 MV VTI 0.286 m MV Area VTI 2.20 (4.0-6.0 cm2) Pulmonary Valve PV Vmax 0.80 (0.5-1.5 m/s) RVOT Peak Gr. 1.35 mmHg PV Peak Grad 2.6 mmHg RVOT Mean Gr. 0.65 mmHg PV Mean Grad 1.4 mmHg RVOT VTI 0.129 m PV VTI 0.163 m RVOT Vmax 0.58 m/s Tricuspid Valve TR Peak Grad 30.3 mmHg TR Vmax 2.76 m/s RA Pressure 3.00 mmHg RVSP (TR) 33.4 mmHg
== END 2022-11-12 01:10 ==
LOC: DI 00:50
PROVIDERS: PCP Internal Medicine; Visit Provider Internal Medicine
DX: I71.21 Aneurysm of the ascending aorta, without rupture (principal); Z01.818 Encounter for other preprocedural examination
CPT/HCPCS: 93306

== ENCOUNTER 2022-11-19 01:09 | Outpatient (CLI) | payer BC, SELFPAY ==
[2022-11-19 12:55] LABS: HCT 37.3 % (40.0-50.0); HGB 12.2 g/dL (13.5-17.5); MCH 30.5 pg (27.0-33.0); MCHC 32.7 % (32.0-36.0); MCV 93 fL (80-95); MPV 9.4 fL (8.0-11.0); Platelet Count 184 10^3/uL (130-400); RDW 12.4 % (11.8-14.1); RDW-SD 42.9 fL; WBC 5.28 10^3/uL (4.4-10.8)
[2022-11-19 13:13] LABS: Anion Gap 8.6 mmol/L (3-11); BUN 23 mg/dL (7-18); CO2 27.4 mmol/L (21.0-32.0); CREATININE 1.2 mg/dL (0.70-1.30); Calcium 9.2 mg/dL (8.5-10.1); Chloride 103 mmol/L (98-107); Estimated GFR 65.46 (mL/min/1.73m2); Glucose 95 mg/dL (74-106); Potassium 4.6 mmol/L (3.5-5.1); Sodium 139 mmol/L (136-145)
== END 2022-11-19 01:10 | disposition home or self-care (01) ==
LOC: LBO 01:10
PROVIDERS: PCP Internal Medicine; Visit Provider Student in an Organized Health Care Education/Training Program
DX: M17.11 Unilateral primary osteoarthritis, right knee (principal); Z01.818 Encounter for other preprocedural examination
CPT/HCPCS: 36415; 80048; 85027

== ENCOUNTER 2022-11-19 11:12 | Outpatient (CLI) | payer BC, SELFPAY ==
--- NOTE | 2022-11-19 11:00 | DI.RAD_ITS ---
Exam(s) XR KNEE RT 1V XR STANDING ALIGNMENT EXAM: XR STANDING ALIGNMENT CLINICAL HISTORY: PRE OP R TKA. TECHNIQUE: 2D digital imaging was performed. Standing AP views were performed from the pelvis throu gh the ankles. COMPARISON: No exams were available for comparison FINDINGS: BONES: No acute fracture is present. No bony destructive lesion is seen. Leg length discrepancy: Left femoral head projects superior to the right by 19 millimeters. JOINTS: Knees: Left knee prosthesis. Severe degenerative changes are noted of the medial femoral tib ial joint of the right knee with [id number] appearance and varus angulation. The ankle joints are unremarkable. The hip joints show mild acetabular spurring. SOFT TISSUE: Normal. IMPRESSION: Severe degenerative changes medial femoral tibial joint right knee. Approximately 2 centimeter leg length discrepancy. DATA REPOSITORY: RADIATION DOSE DELIVERED:
--- NOTE | 2022-11-19 11:00 | DI.RAD_ITS ---
Exam(s) XR KNEE RT 1V XR STANDING ALIGNMENT EXAM: XR STANDING ALIGNMENT CLINICAL HISTORY: PRE OP R TKA. TECHNIQUE: 2D digital imaging was performed. Standing AP views were performed from the pelvis throu gh the ankles. COMPARISON: No exams were available for comparison FINDINGS: BONES: No acute fracture is present. No bony destructive lesion is seen. Leg length discrepancy: Left femoral head projects superior to the right by 19 millimeters. JOINTS: Knees: Left knee prosthesis. Severe degenerative changes are noted of the medial femoral tib ial joint of the right knee with [id number] appearance and varus angulation. The ankle joints are unremarkable. The hip joints show mild acetabular spurring. SOFT TISSUE: Normal. IMPRESSION: Severe degenerative changes medial femoral tibial joint right knee. Approximately 2 centimeter leg length discrepancy. DATA REPOSITORY: RADIATION DOSE DELIVERED:
== END 2022-11-19 11:13 | disposition home or self-care (01) ==
LOC: DIORS 11:13
PROVIDERS: PCP Internal Medicine; Referring Provider Internal Medicine; Visit Provider Physician Assistant
DX: M17.11 Unilateral primary osteoarthritis, right knee (principal)
CPT/HCPCS: 73560; 77073

== ENCOUNTER 2022-11-23 18:02 | Observation (INO) | payer BC, SELFPAY ==
[2022-11-23] VITALS (18 sets, daily range): BP systolic 87–129; BP diastolic 52–96; PULSE 58–92; RESP 12–18; TEMP 35.9–36.6; O2SAT 95–99; BMI 23.7
--- NOTE | 2022-11-23 07:28 | W.PM.DS.N ---
Date of service: 11/23/22 Time of Service: 13:58 DS: Diagnosis Discharge Diagnosis (1) Primary osteoarthritis of right knee: Status: Acute Discharge Plan Disposition Patient Disposition: Home Condition: Good Discharge Details Reason For Visit: Right knee DJD Attending Provider: Stephen Johnson Primary Care Provider: Hong aSdler Livingston Meds and New Rx's Prescriptions: New acetaminophen 500 mg tablet 1,000 mg PO Q8H PRN Qty: 90 0RF Rx Instructions: Take two tablets up to every 8 hours as needed for pain celecoxib [Celebrex] 200 mg capsule 200 mg PO BID PRNQty: 60 0RF Rx Instructions: Take one tablet twice daily for pain and inflammation docusate sodium [Colace] 100 mg capsule 100 mg PO BID Qty: 30 0RF dexamethasone 4 mg tablet 4 mg PO DAILY Qty: 2 0RF Rx Instructions: Take one tablet once daily for two days oxycodone 5 mg tablet 5 mg PO Q4H PRN (Reason: severe post-operative pain) Qty: 18 0RF Rx Instructions: Take one tablet up to every 4 hours as needed for severe pain Continued diphenoxylate-atropine 2.5-0.025 mg tablet 1 tab PO Q2H PRN PRN atorvastatin 40 mg tablet 40 mg PO HS pantoprazole 40 mg tablet,delayed release (DR/EC) 40 mg PO DAILY PRN mirtazapine 15 mg tablet 7.5 mg PO QHS metoprolol tartrate 25 mg tablet 12.5 mg PO HS gabapentin [Neurontin] 300 MG capsule 600 mg PO HS Probiotic 3 billion cell Capsule 1 cell PO DAILY Lupron Depot (3 month) 22.5 mg Syringe Kit IM Held Eliquis 5 mg tablet 5 mg PO BID Hold Instructions: Resume on 11/24/22. No Action mecobalamin (vitamin B12) [B12 Active] 1,000 mcg Tablet,Chewable 1,000 mcg PO DAILY Centrum Men 50 Plus Minis [id number] mcg Tablet 1 tab PO DAILY Discharge Instructions Additional Instructions: Total Knee Discharge Instructions Activity: The most important activity is to walk and to work on gentle motion (both flexion and extension). You should try to take short walks a few times a day. It is important that when resting you work on keeping the knee straight. Avoid putting a pillow behind the knee as this will encourage flexion. Work on range of motion exercises as provided by Physical Therapy. - Start outpatient physical therapy within 2 weeks. - You should wear the RIVER hose on both legs for 2 weeks. You may remove these at night. You may also use any compression sock in place of the RIVER hose. - Utilize [employer] to review exercises, see videos on exercises and obtain basic information pertaining to your surgery and your recovery. Dressing: Remove the Delio wrap by 2 days after your surgery and put on the RIVER stocking given to you from the hospital. Keep the surgical dressing (underneath the DELIO wrap) in place for at least one week. After the first week it may be removed and replaced with light gauze and tape or nothing. The wound and dressing may get wet after 3 days but avoid soaking the dressing or otherwise it will need to be changed. Many people prefer covering the dressing with cling wrap (saran wrap) to minimize it from getting soaked. If it gets wet, just pat dry. If it starts to peel off then it will need to be changed. Medications: - You should take Tylenol and anti-inflammatory Celebrex as your primary pain control medications. If the Celebrex is too expensive or not covered, please call the office for another alternative (Advil/Ibuprofen or Naproxen/Aleve) - You have been prescribed a stronger pain medication Oxycodone for breakthrough pain, take as needed as prescribed. - You take a stomach acid reduction agent Pantoprozole at baseline - continue with this to help reduce stomach acid and reflux. - You take Gabapentin at baseline - continue with this for restlessness and nerve pain. - You take Eliquis - resume your normal dosage tomorrow. - You have also been prescribed Decadron to take to control post-operative nausea and pain. You will start this tomorrow. - If you have constipation you should take Colace (which has been prescribed) or Miralax (which is available [id number]). It takes most people 3-4 days to have a bowel movement. Follow-up: 2 weeks If you have any acute concerns or questions, please do not hesitate to contact the office at [phone]. You may contact Dr. Johnson with any questions after hours through the hospital at [phone] or on his cell phone at [phone]. Stand Alone Forms: Anesthesia Discharge Inst.Peggy.Nerve Block Instructions, [place] [facility] ([facility]) Referrals: Stephen Johnson MD [ [facility] STAFF PHYSICIAN] - Equipment/Supplies: Walker Activity:: Activity as Tolerated Remove Dressings/Wound Care:: Do Not Remove Shower/Bathe:: Cover Diet:: As Tolerated Discharge Orders Discharge Orders: Discharge Order (Routine); Ordered 11/23/22 Ordered By: Stephen Johnson DS: Summary Time Spent with Patient providing and/or coordinating discharge services: Less than 30 minutes Status at Discharge Functional status at discharge: uses cane/walker Overall status at discharge: patient is progressing back to baseline Mental Status: mental status grossly normal Speech and Movement: speech and movement normal Mood: congruent mood Affect: normal affect Exam Psych Mental Status: mental status grossly normal Speech and Movement: speech and movement normal Mood: congruent mood Affect: normal affect DS: Data Vitals/I&O Vitals and I&O: Intake & Output 11/22/22 11/22/22 11/23/22 11:59 23:59 11:59 Weight 187 lb 0.008 oz PFSH All Active Problems A-fib (Chronic) Primary osteoarthritis of right knee (Acute) Chest pain (Acute) ST segment changes on electrocardiogram (Acute) Cardiomyopathy (Chronic) Sebaceous cyst (Acute) Medical History Adenocarcinoma of prostate 09/01/22-ended radiation therapy Ascending aorta dilatation Bursitis of right shoulder (~05/12/19) Carpal tunnel syndrome of right wrist Chronic venous insufficiency Contracture of right knee Cubital tunnel syndrome on right Elevated PSA Hand joint stiff Hx of testicular cancer Impingement syndrome of right shoulder (~05/12/19) Injury of right rotator cuff (05/12/19) Irritable bowel syndrome Left inguinal hernia pt. 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 Surgical History (Updated 11/23/22 @ 09:31 by Violeta Guallpa RN) H/O rotator cuff surgery R side History of colon resection For ileus caused by narcotics after previous left total knee replacement History of colonoscopy History of radical prostatectomy History of total left knee replacement (TKR) Social History Smoking/Tobacco Use Status: Never Smoking risk assessment performed?: Yes Alcohol Intake: current Alcohol Intake frequency: a few times a week Alcohol type: beer Drug use: Never Substance use type: does not use Current gender identity: male Do you feel safe at home: Yes Do you feel safe in your relationship?: Yes
[2022-11-23] MEDS: Celecoxib 200 MG CAP 400 MG PO (10:16)
[2022-11-23] MEDS: Acetaminophen 500 MG TAB 1000 MG PO ×2 (10:17→19:47)
[2022-11-23] MEDS: Gabapentin 300 MG CAP PO (10:17)
[2022-11-23] MEDS: Lactated Ringers 1,000 ML 80 ML IV ×2 (10:40→20:13)
--- NOTE | 2022-11-23 10:49 | ANES.PREOP_ITS ---
General Info Date of Service Date Performed: 11/23/22 Height: 6 ft 1 in Weight: 81.6 kg Body Mass Index (BMI): 23.7 Surgical Procedure: Operation Date: 11/23/22 12:40 Proposed Procedure Side Surgeon p Knee Total Arthroplasty, Cementless CR Right Stephen Johnson MD Meds Allergies and Home Medications Allergies Allergy/AdvReac Type Severity Reaction Status Date / Time No Known Allergies Allergy Verified 11/23/22 09:31 Home Medication Medication Instructions Recorded gabapentin 300 mg capsule 600 mg PO HS 02/24/13 (Neurontin) apixaban 5 mg tablet (Eliquis) 5 mg PO BID 03/12/19 atorvastatin 40 mg tablet 40 mg PO HS 03/12/19 diphenoxylate-atropine 2.5 1 tab PO Q2H PRN PRN 03/12/19 mg-0.025 mg tablet pantoprazole 40 mg tablet,delayed 40 mg PO DAILY PRN 03/12/19 release lactobacillus combination no.4 3 1 cell PO DAILY 06/29/19 billion cell capsule (Probiotic) mirtazapine 15 mg tablet 7.5 mg PO QHS 07/09/20 metoprolol tartrate 25 mg tablet 12.5 mg PO HS 12/24/21 leuprolide (3 month) 22.5 mg (3 mg IM 11/22/22 month) intramuscular syringe kit (Lupron Depot) acetaminophen 500 mg tablet 1,000 mg PO Q8H PRN pain #90 tabs 11/23/22 celecoxib 200 mg capsule (Celebrex) 200 mg PO BID PRN #60 caps 11/23/22 dexamethasone 4 mg tablet 4 mg PO DAILY #2 tabs 11/23/22 docusate sodium 100 mg capsule 100 mg PO BID #30 caps 11/23/22 (Colace) mecobalamin (vitamin B12) 1,000 1,000 mcg PO DAILY 11/23/22 mcg chewable tablet (B12 Active) [id number] 150 mcg-vit K1 1 tab PO DAILY 11/23/22 30 mcg-lycop 300 mcg-lutein tablet (Centrum Men 50 Plus Minis) oxycodone 5 mg tablet 5 mg PO Q4H PRN severe 11/23/22 post-operative pain #18 tabs Current Visit Medications: Current Medications Generic Name Dose Route Start Last Admin Trade Name Freq PRN Reason Stop Dose Admin Acetaminophen 1,000 mg 11/23/22 06:00 11/23/22 10:17 Acetaminophen 500 Mg Tab PO 11/23/22 16:00 1,000 mg PREOP CHARLEY Administration Acetaminophen 1,000 mg 11/23/22 14:00 Acetaminophen 500 Mg Tab PO TID CHARLEY Celecoxib 400 mg 11/23/22 06:00 11/23/22 10:16 Celecoxib 200 Mg Cap PO 11/23/22 16:00 400 mg PREOP CHARLEY Administration Celecoxib 200 mg 11/23/22 20:00 Celecoxib 200 Mg Cap PO BID CHARLEY Dexamethasone 4 mg 11/24/22 08:30 Dexamethasone 4 Mg Tab PO 11/25/22 08:31 DAILY CHARLEY Docusate Sodium 100 mg 11/23/22 07:25 Docusate Sodium 100 Mg Cap PO BID PRN PRN Constipation Gabapentin 300 mg 11/23/22 06:00 11/23/22 10:17 Gabapentin 300 Mg Cap PO 11/23/22 16:00 300 mg PREOP CHARLEY Administration Gabapentin 300 mg 11/23/22 22:00 Gabapentin 300 Mg Cap PO HS CHARLEY Hydromorphone HCl 0.5 mg 11/23/22 07:25 Hydromorphone 2 Mg/Ml Syr IVP Q2H PRN PRN Tranexamic Acid 1,000 mg/ 60 mls @ 360 mls/hr 11/23/22 06:00 Sodium Chloride IVPB 11/23/22 16:00 PREOP CHARLEY Ringer's Solution 1,000 mls @ 80 mls/hr 11/23/22 06:00 11/23/22 10:40 IV 11/23/22 23:59 80 mls/hr INFUSION CHARLEY Administration Cefazolin Sodium/Dextrose 2 gm in 50 mls @ 100 mls/hr 11/23/22 06:00 Ancef Duplex IVPB 11/23/22 23:59 PREOP CHARLEY Cefazolin Sodium/Dextrose 1 gm in 50 mls @ 100 mls/hr 11/23/22 08:00 Ancef Duplex IVPB 11/24/22 00:29 Q8H [facility] IV Miscellaneous Supplies 1 each 11/23/22 06:00 Iv Access IV 11/23/22 23:59 DIRECTED CHARLEY Ondansetron HCl 4 mg 11/23/22 07:25 Ondansetron 4 Mg/2 Ml Vial IVP Q6H PRN PRN Nausea Oxycodone HCl 0 mg 11/23/22 07:25 Oxycodone 5 Mg Tab PO Q3H PRN PRN Pain Pantoprazole Sodium 40 mg 11/24/22 07:30 Pantoprazole 40 Mg Tabcr PO DAILY@0730 CHARLEY Polyethylene Glycol 17 gm 11/23/22 07:25 Polyethylene Glycol 3350 17 Gm Packet PO BID PRN PRN Constipation Sodium Chloride 0 ml 11/23/22 06:00 Normal Saline Flush 10 Ml Syr IV 11/23/22 23:59 PRN PRN Sodium Chloride 0 ml 11/23/22 06:00 Normal Saline 10 Ml Vial IJ 11/23/22 23:59 DIRECTED PRN Sterile Water 0 ml 11/23/22 06:00 Water,Injection,Sterile 10 Ml Vial IJ 11/23/22 23:59 DIRECTED PRN PFSH Active Problems Active Problems: Problem Status Onset Code A-fib I48.91 Primary osteoarthritis of right knee M17.[address] segment changes on electrocardiogram R94.31 Atypical chest pain R07.89 Cardiomyopathy I42.9 Sebaceous cyst L72.3 Medical History Medical History Adenocarcinoma of prostate 09/01/22-ended radiation therapy Ascending aorta dilatation Bursitis of right shoulder (~05/12/19) Carpal tunnel syndrome of right wrist Chronic venous insufficiency Contracture of right knee Cubital tunnel syndrome on right Elevated PSA Hand joint stiff Hx of testicular cancer Impingement syndrome of right shoulder (~05/12/19) Injury of right rotator cuff (05/12/19) Irritable bowel syndrome Left inguinal hernia pt. 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 Surgical History Surgical History (Updated 11/23/22 @ 09:31 by Violeta Guallpa RN) H/O rotator cuff surgery R side History of colon resection For ileus caused by narcotics after previous left total knee replacement History of colonoscopy History of radical prostatectomy History of total left knee replacement (TKR) Tobacco Smoking/Tobacco Use Status: Never Alcohol Alcohol Intake: current Alcohol intake frequency: a few times a week Alcohol type: beer Substance Use Substance use: Never Substance use type: does not use Vital Signs and Lab Results Vital Signs Most Recent Vital Signs in EMR: Most Recent Vital Signs Temp Pulse Resp BP Pulse Ox 35.9 C L 74 16 124/72 98 11/23/22 09:22 11/23/22 09:22 11/23/22 09:22 11/23/22 09:22 11/23/22 09:22 Lab Results Blood Type / Crossmatch: No Data to Display Complete Blood Count: White Blood Count 5.28 10^3/uL (4.4-10.8) 11/19/22 12:40 Red Blood Count 4.00 10^6/uL (4.36-5.78) L 11/19/22 12:40 Hemoglobin 12.2 g/dL (13.5-17.5) L 11/19/22 12:40 Hematocrit 37.3 % (40.0-50.0) L 11/19/22 12:40 Platelet Count 184 10^3/uL (130-400) 11/19/22 12:40 Complete Metabolic Panel: Sodium 139 mmol/L (136-145) 11/19/22 12:40 Potassium 4.6 mmol/L (3.5-5.1) 11/19/22 12:40 Chloride 103 mmol/L (98-107) 11/19/22 12:40 Carbon Dioxide 27.4 mmol/L (21.0-32.0) 11/19/22 12:40 BUN 23 mg/dL (7-18) H 11/19/22 12:40 Creatinine 1.2 mg/dL (0.70-1.30) 11/19/22 12:40 Est GFR (CKD-EPI 2020) 65.46 (mL/min/1.73m2) 11/19/22 12:40 Calcium 9.2 mg/dL (8.5-10.1) 11/19/22 12:40 Glucose 95 mg/dL (74-106) 11/19/22 12:40 Liver Function Panel: No Data to Display Coagulation Panel: No Data to Display Cardiac Panel: No Data to Display Arterial Blood Gas: No Data to Display Venous Blood Gas: No Data to Display Pancreas Panel: No Data to Display Thyroid Panel: No Data to Display Infectious Disease: No Data to Display Blood Cultures: No Data to Display Toxicology Panel: No Data to Display Imaging and Studies Imaging and Studies Study information below may be from another EMR and interpreted by another provider. Please see original notes in EMR for more complete details. EKG Summary: 08/20/22 Sinus. Normal axis. No STEMI. Echocardiogram Summary: 11/12/22- Conclusion Normal left ventricular wall thickness and chamber size. Estimated ejection fraction is 60%. Wall motion is normal The right ventricle is grossly normal in size and systolic function The atria are normal in size Aortic valve is mildly sclerotic and trileaflet with mild regurgitation Thickened mitral leaflets with mild regurgitation Normal tricuspid valve with moderate regurgitation. Estimated right ventricular systolic pressure is 33 mmHg Dilated aortic root, 3.89 centimeter and ascending aorta, 4.14 cm Anesthesia Assessment and Plan Anesthesia History Personal History: No History of Anesthesia Complications Family History: No Family History of Anesthesia Complications Exercise Tolerance Exercise Tolerance: Metabolic Equivalents>4 Pertinent Negatives Pertinent Negatives: No Symptoms of GERD and No Major Pulmonary Symptoms or Complaints Cardiac & Pulmonary Exam Cardiac Exam: Normal S1/S2 Heart Sounds Pulmonary Exam: Clear Bilateral Breath Sounds Implantable Cardiac Device Does patient have a Pacemaker or an ICD?: No Airway Exam Known Difficult Airway: No Mallampati Class: 2 Mouth Opening: Normal (> 3cm) Thyromental Distance: Greater than 3 cm Neck Range of Motion: Full ROM Neck Circumference: Normal Teeth Condition: Normal Dentition ASA Classification ASA Score: ASA 3 Emergency Case?: No NPO Status NPO Status: NPO Clears >2 hours, Solids >8 hours Anesthesia Plan Resuscitation Status: Full Code Anesthesia Technique: Spinal Anesthesia Airway Planned: Natural Airway Pain Management: Surgeon and patient request nerve block Monitors Used: Standard Monitors Preoperative Comments:: Hx TIA 2018 SX; weakness dizzy unable to speak - seen at [facility] and [place]- symptoms resolved Hx afib off Eliquis since Tuesday on metoprolol Tingling noted in lower extremities as of last three years. MRI of spine from 10 years ago reviewed and degenerative changes noted. Given new symptoms recommended follow up with PCP and possible imaging Will attempt spinal and convert to general if unable to obtain
[2022-11-23] MEDS: ceFAZolin 2 GM/50 ML BAG IVPB (11:43)
--- NOTE | 2022-11-23 12:51 | W.ANESNERVE ---
Nerve Block Single Injection Procedure Date and Time Date Performed: 11/23/22 Procedure Start: 11:26 Location Where Procedure Performed Procedure Location: Day Surgery Unit Reason Performed: Postoperative Analgesia Requesting Provider: Stephen Johnson Timeout Performed Timeout Performed: Yes Monitoring Used ECG, Blood Pressure, SpO2, ETCO2 and See EMR for corresponding vital signs Sterility Sterility: Hand Hygiene, Surgical Cap, Surgical Mask, Sterile Gloves and Chlorhexidine Sedation Given During Procedure Sedation Given (Indicate Dose Given): Versed IV Dose:: 2 mg Patient Mental Status Patient Mental Status: Awake Nerve Block 1st Nerve Block: Laterality: Right Block Type: Adductor Canal Ultrasound Image Saved?: Yes Needle / Catheter Used: 100mm SonoPlex II Local Anesthetic Bolus (Indicate Dose Given): Lidocaine used for local infiltration of skin, Injected in 3-5ml increments after negative blood aspiration and Bupivacaine 0.25% Dose:: 15 ml Additives (Indicate Dose Given): None Ultrasound: Sterile probe cover and gel used Nerve Stimulator: Not Used Paresthesia: None Procedure Tolerated: No Complications Procedure Outcome: Successful Performed By: Francoise Meza Supervised By: Chaya Sierra
--- NOTE | 2022-11-23 14:14 | W.PM.OP ---
Date of service: 11/23/22 Time of Service: 13:00 Operative Note Operative Note DATE OF PROCEDURE: 11/23/22 PRE-OP DIAGNOSIS: Right Knee Osteoarthritis POST-OP DIAGNOSIS: same PROCEDURE: Right Total Knee Replacement SURGEON: Stephen Johnson ACQUISITION COST ESTIMATOR: Marleni Cordero ANESTHESIA TYPE: Spinal Refer to Anesthesia Record ESTIMATED BLOOD LOSS: 150 PATHOLOGY: none sent TOURNIQUET TIME: 0 COMPLICATIONS: None Patient was transported to: PACU Patient's condition: stable Implants: 1. Depuy Attune Cementless Cruciate Retaining Femoral Component, Size 10 2. Depuy Attune Cementless Rotating Platform Tibial Component, Size 9 3. Depuy Attune 10x7mm CR/RP Poly 4. Depuy Attune Patellar Component, Size 41 Indications: I have seen Farhad in clinic for symptoms of knee arthritis, confirmed with radiographic findings. He has exhausted nonoperative methods and was having significant limitations in daily function and desired better function and less pain. I discussed the technical details of a knee replacement. I explained the risks of the procedure to include, but not limited to, bleeding, infection, pain, stiffness, fracture, damage to nerves and vessels, damage to muscles and tendons, loosening, need for repeat procedure, blood clot and cardiopulmonary demise. Despite these risks, Farhad elected to proceed. Findings: There was significant signs of arthritis throughout the knee in all 3 compartments. There is significant loss of bone over the posterior medial aspect of the tibia. Procedure Description: Farhad was greeted in the preoperative holding area where the correct side was identified and marked. The consent was reviewed with the patient and signed. The history and physical was updated. All questions were answered. Preoperative medications were administered: Acetaminophen 1000mg, Celebrex 400mg, and Gabapentin 300mg. An adductor canal block was then administered by the anesthesia team in the PACU. Agus was taken back to the operating room. A spinal anesthestic was then administered. The patient was placed into the supine position on the operating room table. A nonsterile tourniquet was placed high onto the leg but only used for cementing. Posts were placed for positioning during the procedure. All bony prominences were well padded. Prophylactic antibiotics in the form of Cefazolin were administered. 1g of Tranxemic Acid was given intravenously within 30 minutes of incision. The right leg was then prepped with Chloraprep and draped in a standard fashion with impervious stockinette. A second prep with Chloraprep was performed prior to application of Iodine impregnated skin protection. A timeout to confirm correct identity, side and site, procedure, allergies, anesthesia, and medical concerns was performed. With the knee in some flexion, a midline incision was made overlying the knee. Full thickness skin flaps were raised once the extensor mechanism was encountered. These were raised medially and laterally. Any bleeding was controlled with electrocautery. Once the extensor mechanism was fully exposed, a medial parapatellar arthrotomy was performed in a flexed position. All bleeding from the arthrotomy and the geniculate arteries was coagulated. A medial subperiosteal peel was performed with electrocautery to the midcoronal plane. Due to the significant varus deformity the entire medial tibial plateau was exposed. The fat pad was removed while keeping the patellar tendon protected. The anterior distal femur synovium was removed for later visualization. The ACL and PCL were resected and the anterior horn of the lateral meniscus was transected. The knee was then flexed with the patella everted. Large osteophytes from the tibia were removed. Large osteophytes from the femur were removed. Using a step drill, and based on preoperative templating, the femoral canal was entered. This was done with a step drill without any difficulty. The intramedullary distal femoral cut guide was inserted, set to a 6 degree valgus cut and 10mm cut thickness. There was some hypoplasia of the lateral femoral condyle and any remnant cartilage of the medial femoral condyle was removed for appropriate thickness. The distal femoral cut guide was then held in position and pinned. With the soft tissues protected, the distal cut was performed. This was passed over a few times to ensure a planar cut. I then turned attention to the tibia. The extramedullary guide was placed onto the leg. The distal aspect was slid medial to adjust for position of center of ankle and stay in line with shaft of the tibia. Approximately 7 degrees of posterior slope was kept in the proximal cutting guide. The center of the guide was aligned with the PCL. The stylus was used to assess cut thickness. The medial side, most involved side, was set for a 2mm cut from the defect posteromedially. This was then held in position and pinned into place with 2 additional pins and a cross pin for stability. The medial and lateral collateral ligaments were protected and the cut was performed. With this completed, it was assessed and noted to be of appropriate dimensions. The guide was removed. A spacer block was inserted and the knee was brought into extension. The 5mm spacer block provided full extension, without hyperextension and with stability of both the medial and lateral collateral ligaments was assessed. The pins from the femur and the tibia were then removed. The distal femur was then sized. The anterior stylus was placed onto the lateral ridge of the anterior femur. This indicated a size 10 femur. The external rotation of the guide was adjusted to 3 degrees to match the epicondylar axis, perpendicular to Haywood?s line. The 4-in-1 cutting guide was the placed. The posterior medial femur cut was evaluated and appeared of good thickness. The spacer block was inserted underneath the cutting guide and stability was confirmed in 90 degrees of flexion. An daysi wing was used to confirm appropriate position of the anterior cut to avoid notching. This cutting guide was ensured to be flush on the cut surface and then pinned into place with headed pins. While protecting the soft tissues, quad tendon, and collateral ligaments, the anterior and posterior cuts were performed with a saw. The central two pins were removed and the posterior and anterior chamfers were cut next. The notch-cutting guide was placed. This was pinned to lateralize the femoral component as much as possible while keeping it flush on the cut surface. This was then pinned into position. A saw was used to make the notch cut. A rasp smoothed the cut surfaces. The medial and lateral menisci were removed. Addtionaly osteophytes from the posterior tibia were removed. Additional capsular attachments posteriorly were recessed and posterior femoral ostephytes were removed with a curved osteotome. A trial femoral component was then inserted, impacted down to the cut surfaces, and the lug holes were drilled. A provisional trial tibial component was placed and the knee was brought through range of motion. The polyethylene was trialed until there was good flexion and extension with excellent stability to the medial and lateral collaterals. The patella was tracking without thumbs. A size 7mm polyethylene component provided the best range of motion and stability with less than 2mm gapping with medial and lateral stress and full extension without significant hyperextension. The tibial cut surface was fully exposed. The tibia was then sized as a 9. The tibia had been previously marked during trialing to correspond to the center of the tibial component to help with rotation. The trial was aligned to this zoe, approximately rotated to the medial 1/3rd of the tibial tubercle. The trial was pinned into place. The tibia was prepared with a reamer and a keel punch and lug holes. The knee was then brought into extension and the patella was measured as 29mm. Using the patellar clamp and cut guide, this was resected to a flat surface with at least 13mm of thickness remaining. The size 41 patella fit the best. This was oriented and then clamped into position. The lugs were drilled. The trial components were removed. The final components were opened on the back table. The periosteal and capsular tissues, especially posteriorly, around the knee were then systematically injected with a periarticular cocktail consisting of 246mg of Ropivacaine, 0.5mg of Epinephrine, 0.08mg of Clonidine, and 30mg of Ketorolac, diluted to 100cc. On the back table, with the implants opened, the cement was mixed. One batch of high viscosity cement was prepared with vacuum assistance. After the cement was ready a small amount was placed on the cut surface of the patella and the patellar button was clamped into position and held. While the cement was hardening, the cementless knee components were placed. Starting with the tibial component, the tibia was subluxed anteriorly and the lug holes of the component were lined up. The tibia was then impacted with an impactor and mallet until the tibial component was in contact with the tibia. The final polyethylene component was inserted. Then, the femoral component was inserted. The lug holes were aligned and the component was impacted into position. The knee was irrigated with Surgiphor Betadine solution. This was allowed to sit in the knee for 3 minutes and then it was irrigated out with saline. After the cement had finally cured, approximately 15min, the clamp was removed from the patella and the knee was taken through range of motion. The patella was tracking with a no-thumbs technique. The capsule was then reapproximated with a No. 2 Fiberwire at multiple locations. The capsule was finally closed with a No. 2 Stratafix, barbed suture. Deep tissues were then reapproximated with 0 Vicryl and 2-0 Vicryl. The skin was closed with a running 3-0 Monocryl in a subcuticular fashion. This was reinforced with skin glue. A Mepilex silver dressing was applied along with a [id number] VIANEY wrap. A CryoCuff was applied. Farhad was transferred to the hospital bed without difficulty an suffering no apparent complication. He has a good prognosis. Physical therapy will start today and without restrictions, weight-bearing as tolerated. His home dose of Apixaban 5mg BID will be used for DVT prophylaxis.
--- NOTE | 2022-11-23 14:36 | W.ANESPOSTOP ---
Postoperative Evaluation Date, Time and Location Date Performed: 11/23/22 Time Performed: 14:36 Patient Location: Day Surgery Unit Vital Signs Most Recent Imported Vital Signs: Most Recent Vital Signs Temp Pulse Resp BP Pulse Ox 36.2 C L 68 16 127/77 99 11/23/22 14:20 11/23/22 14:20 11/23/22 14:20 11/23/22 14:20 11/23/22 14:20 Pain Score Most Recent Pain Score: Most Recent Pain Score Pain Level 0 11/23/22 14:20 Assessment Mental Status: Awake (Alert & Oriented to Patient Baseline) Airway and Respiratory Function: Patent airway with normal (patient baseline) respiratory exam Cardiovascular Function: Hemodynamically Stable Hydration Status: Adequately Hydrated Nausea & Vomiting: No Nausea or Vomiting Pain: Pain is tolerable per patient Peripheral Nerve Block: Patient did not receive a nerve block Postoperative Comments:: Spinal still somewhat in effect but waning.
[2022-11-23] MEDS: oxyCODONE 5 MG TAB PO ×2 (15:03→22:02)
[2022-11-23] MEDS: Midodrine 2.5 MG TAB 5 MG PO (17:21)
--- NOTE | 2022-11-23 17:53 | PT.INIE ---
Date of service: 11/23/22 Time of Service: 17:33 PT Notes Visit Reasons: Right knee DJD Physical Therapy Day Surgery Initial Evaluation Date: 11/23/2022 Referring Doctor: MIKY Peralta PT Orders: PT CONSULT: S/P Ortho Surgery Precautions: WBAT on R LE with AD. Patient Profile/Admitting Diagnosis: Raul is a 67-year-old male with primary osteoarthritis of the right knee and is status post right total knee arthroplasty on postoperative day 0. PMHX: Medical History?(Updated 11/19/22 @ 14:40 by MIKY Bee) Adenocarcinoma of prostate Ascending aorta dilatation Bursitis of right shoulder (~05/12/19) Carpal tunnel syndrome of right wrist Chronic venous insufficiency Contracture of right knee Cubital tunnel syndrome on right Elevated PSA Hand joint stiff Hx of testicular cancer Impingement syndrome of right shoulder (~05/12/19) Injury of right rotator cuff (05/12/19) Irritable bowel syndrome Left inguinal hernia Left lateral epicondylitis No-show for appointment Osteoarthritis of right knee Right carpal tunnel syndrome Rotator cuff tear, right (~05/12/19) Scapular dyskinesis SLAP lesion of right shoulder (~05/12/19) Stiffness of right shoulder joint (~05/2019) Tendonitis of long head of biceps brachii of right shoulder (~05/12/19) TIA (transient ischemic attack) Caused by his atrial fibrillation prior to treatment Trigger finger, right little finger Trigger finger, right middle finger (~07/2019) 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 History of colon resection For ileus caused by narcotics after previous left total knee replacementHistory of colonoscopy History of radical prostatectomy History of total left knee replacement (TKR) Social History/Home Situation: Lives with wofe in a private home. Independent with all ADLs PTS. Equipment Owned/DME: None Subjective: Reported being lightheaded, seeing stars, and room spinning at start of ambulation needing a seated rest. Carnegie better in sitting and attempted another walk after about a rest of 5 minutes or so. Complained of same symptoms which prompted PT to defer further ambulation assessment until t least half an hour later. Reported same symptoms with actual softening of BP documented from sitting to standing. indicated that she does not feel safe bringing home tonight. Objective: General Observation: VIANEY Wrap to R LE. Cryocuff to R knee. Appeared pale during ambulation activity. Mental Status: Alert and oriented x 4 Pain: 3-4/10 in the R knee ROM: Right Lower Extremity: Hip flexion WFL. Hip abduction WFL. Knee flexion 0 to 90 degrees. Knee extension 90 degrees to 0. Ankle dorsiflexion WFL. Ankle plantarflexion WFL. Left Lower Extremity: Hip flexion WFL. Hip abduction WFL. Knee flexion WFL. Ankle dorsiflexion WFL. Ankle plantarflexion WFL. Strength: Right Lower Extremity: Hip flexors 5/5. Hip abductors 5/5. Knee flexors 3-/5. Knee extensors 3-/5. Ankle dorsiflexors 5/5. Ankle plantarflexors 5/5. Left Lower Extremity:Hip flexors 5/5. Hip abductors 5/5. Knee flexors 5/5. Knee extensors 5/5. Ankle dorsiflexors 5/5. Ankle plantarflexors 5/5. Sensation: Intact as to pain and light pressure in B LE Bed Mobility/Transfers: Supine to sit stand by assist Sit to stand contact guard assist Stand to sit contact guard assist Bed to chair stand by assist Gait: Reported seeing stars and room spinning after walking 4-5 steps with walker. Nurse Mims notified who measured vital signs to be WNL when patient was seated. Another attempt was made after patient has drank water and has rested for about 5 minutes, however became symptomatic again after about 8-10 steps needing to sit down. Vital signs were remeasured and Juvenal Mims recommended giving time for the patient to recover some more. Patient was seen about an hour after but remained orthostatic with BP softening to 87/54 mmHg in standing, sitting BP is 116/80 mmHg. Balance: Static Sitting: Fair Dynamic Sitting: Fair Static Standing: Fair Dynamic Standing: Fair Special Tests: Mobility Limitations Standardized Measure [facility] AM-PAC 6 clicks Basic Mobility Inpatient Short Form: Raw Score: 18 CMS Score: 47% deficit Informed Consent/Education: Patient instructed in purpose of PT consult. Packet containing TKA exercise protocol has been given to patient. Education and training on initial set of exercises that can be done at home have been initiated with patient and . Assessment: Deferred further ambulation after two episodes of lightheadedness with walking very short distance. Patient was given about an hour to further re-stabilize however remained orthostatic after another attempt at mobility assessment was made an hour after initial visit. Orthopedic surgeon notified of patient status with concerns for risk for falls due to continued symptoms. Patient presents with clinical signs and symptoms consistent with current/admitting diagnoses that have resulted to mobility limitations, gait instability, generalized weakness, and impairment of motor control as demonstrated by the following impairment level findings: 1. Decreased strength to R knee major muscle groups 2. Impaired standing balance 3. Limitation of joint range of motion in right knee 4. Lightheadedness Impairments are contributing to the following functional limitations: 1. Inability to safely ambulate without assistive device and physical assistance 2. Increase completion time for mobility ADL performance 3. Increased fall risk Patient is assessed as a [id number] moderate complexity based on the following: History: 67-year-old male with impairment level findings, functional limitations, and past medical history as indicated above Examination: Demonstrable impairment in strength, balance, and mobility level with underlying impairments and functional limitations as documented above Presentation: Evolving Decision Makin moderate complexity Goals: N/A. PT evaluation and 1-2 treatment sessions only for functional mobility training using recommended AD and for HEP instruction. Plan of Care/Treatment Plan: N/A. PT evaluation and 1-2 treatment session only for functional mobility training using recommended AD and for HEP instruction. DISCHARGE RECOMMENDATIONS: Recommend admission to medsurg unit for further close monitoring of vital signs and postoperative status. TREATMENT CODE/TIME: 38947 x 20 minutes, 66122 x 23 minutes beginning at 15:57 PM and 17:33 PM. Thank you for the opportunity to participate in the care of this patient. Mila Velasquez PT, DPT, CLT [facility] [place], [place]
[2022-11-23] MEDS: Normal Saline Flush 10 ML SYR IV ×2 (18:00→20:14)
[2022-11-23] MEDS: Celecoxib 200 MG CAP PO (19:48)
[2022-11-23] MEDS: ceFAZolin 1 GM/50 ML BAG IVPB (19:48)
[2022-11-23] MEDS: HYDROmorphone 2 MG/ML SYR 0.5 MG IVP (20:12)
[2022-11-23] MEDS: Docusate Sodium 100 MG CAP PO (20:13)
[2022-11-23] MEDS: Gabapentin 300 MG CAP 600 MG PO (22:00)
[2022-11-23] MEDS: Atorvastatin 40 MG TAB PO (22:01)
[2022-11-23] MEDS: Mirtazapine 15 MG TAB 7.5 MG PO (22:01)
[2022-11-24 00:04] VITALS: BP 173/60; PULSE 80; RESP 16; TEMP 37.1; O2SAT 96
[2022-11-24] MEDS: ceFAZolin 1 GM/50 ML BAG IVPB (02:11)
[2022-11-24 02:20] VITALS: BP 124/52
[2022-11-24 03:25] VITALS: BP 127/80; PULSE 80; RESP 18; TEMP 36.9; O2SAT 98
[2022-11-24 07:28] VITALS: BP 110/64; PULSE 97; RESP 16; TEMP 36; O2SAT 98
--- NOTE | 2022-11-24 07:34 | DSE_ITS ---
Date of service: 11/24/22 Time of Service: 07:34 DS: Diagnosis Discharge Diagnosis (1) Primary osteoarthritis of right knee: Status: Acute Discharge Plan Disposition Patient Disposition: Home Condition: Good Discharge Details Reason For Visit: Right knee DJD Admit Date/Time: 11/23/22 18:02 Admit Provider: Stephen Johnson Attending Provider: Stephen Johnson Primary Care Provider: Hong Sadler Hospital Course Hospital Course: Patient was admitted to the medical/surgical floor following the procedure due to postural hypotension which was symptomatic. Other than this, the surgery was tolerated well without any notable medical, surgical, or anesthetic complications. Mobilization began postoperatively and after some time last night he was able to mobilize with nursing support independently. He was voiding spontaneously. Vitals were stable. Physical therapy worked with the patient and was cleared for discharge home. No acute medical issues. Pain was controlled on oral regimen. Home Meds and New Rx's Prescriptions: New acetaminophen 500 mg tablet 1,000 mg PO Q8H PRN Qty: 90 0RF Rx Instructions: Take two tablets up to every 8 hours as needed for pain celecoxib [Celebrex] 200 mg capsule 200 mg PO BID PRNQty: 60 0RF Rx Instructions: Take one tablet twice daily for pain and inflammation docusate sodium [Colace] 100 mg capsule 100 mg PO BID Qty: 30 0RF dexamethasone 4 mg tablet 4 mg PO DAILY Qty: 2 0RF Rx Instructions: Take one tablet once daily for two days oxycodone 5 mg tablet 5 mg PO Q4H PRN (Reason: severe post-operative pain) Qty: 18 0RF Rx Instructions: Take one tablet up to every 4 hours as needed for severe pain Continued diphenoxylate-atropine 2.5-0.025 mg tablet 1 tab PO Q2H PRN PRN atorvastatin 40 mg tablet 40 mg PO HS pantoprazole 40 mg tablet,delayed release (DR/EC) 40 mg PO DAILY PRN mirtazapine 15 mg tablet 7.5 mg PO QHS metoprolol tartrate 25 mg tablet 12.5 mg PO HS gabapentin [Neurontin] 300 MG capsule 600 mg PO HS Probiotic 3 billion cell Capsule 1 cell PO DAILY Lupron Depot (3 month) 22.5 mg Syringe Kit IM Held Eliquis 5 mg tablet 5 mg PO BID Hold Instructions: Resume on 11/24/22. No Action mecobalamin (vitamin B12) [B12 Active] 1,000 mcg Tablet,Chewable 1,000 mcg PO DAILY Centrum Men 50 Plus Minis [id number] mcg Tablet 1 tab PO DAILY Discharge Instructions Additional Instructions: Total Knee Discharge Instructions Activity: The most important activity is to walk and to work on gentle motion (both flexion and extension). You should try to take short walks a few times a day. It is important that when resting you work on keeping the knee straight. Avoid putting a pillow behind the knee as this will encourage flexion. Work on range of motion exercises as provided by Physical Therapy. - Start outpatient physical therapy within 2 weeks. - You should wear the RIVER hose on both legs for 2 weeks. You may remove these at night. You may also use any compression sock in place of the RIVER hose. - Utilize [employer] to review exercises, see videos on exercises and obtain basic information pertaining to your surgery and your recovery. Dressing: Remove the Delio wrap by 2 days after your surgery and put on the RIVER stocking given to you from the hospital. Keep the surgical dressing (underneath the DELIO wrap) in place for at least one week. After the first week it may be removed and replaced with light gauze and tape or nothing. The wound and dressing may get wet after 3 days but avoid soaking the dressing or otherwise it will need to be changed. Many people prefer covering the dressing with cling wrap (saran wrap) to minimize it from getting soaked. If it gets wet, just pat dry. If it starts to peel off then it will need to be changed. Medications: - You should take Tylenol and anti-inflammatory Celebrex as your primary pain control medications. If the Celebrex is too expensive or not covered, please call the office for another alternative (Advil/Ibuprofen or Naproxen/Aleve) - You have been prescribed a stronger pain medication Oxycodone for breakthrough pain, take as needed as prescribed. - You take a stomach acid reduction agent Pantoprozole at baseline - continue with this to help reduce stomach acid and reflux. - You take Gabapentin at baseline - continue with this for restlessness and ne rve pain. - You take Eliquis - resume your normal dosage tomorrow. - You have also been prescribed Decadron to take to control post-operative nausea and pain. You will start this tomorrow. - If you have constipation you should take Colace (which has been prescribed) or Miralax (which is available [id number]). It takes most people 3-4 days to have a bowel movement. Follow-up: 2 weeks If you have any acute concerns or questions, please do not hesitate to contact the office at [phone]. You may contact Dr. Johnson with any questions after hours through the hospital at [phone] or on his cell phone at [phone]. Stand Alone Forms: Anesthesia Discharge Inst., Anes.Nerve Block Instructions, [place] [facility] ([facility]) Referrals: Stephen Johnson MD [ [facility] STAFF PHYSICIAN] - Activity:: Activity as Tolerated Equipment/Supplies:: Walker Diet:: As Tolerated Discharge Orders Discharge Orders: Discharge Order (Routine); Ordered 11/24/22 Ordered By: Stephen Johnson DS: Summary Time Spent with Patient providing and/or coordinating discharge services: Less than 30 minutes Status at Discharge Functional status at discharge: uses cane/walker Overall status at discharge: patient is progressing back to baseline Mental Status: mental status grossly normal Speech and Movement: speech and movement normal Mood: congruent mood Affect: normal affect Exam Const General: cooperative, healthy appearing, comfortable and no acute distress Extrem Other: Right lower extremity has a clean dry and intact dressing. Mild swelling of the right knee. No ecchymosis. He is able to straight leg raise. He is able to actively dorsiflex and plantarflex the foot as well as extend and flex the great toe. Sensation intact light touch over the deep and superficial peroneal nerve and tibial nerve. Psych Mental Status: mental status grossly normal Speech and Movement: speech and movement normal Mood: congruent mood Affect: normal affect DS: Data Vitals/I&O Vitals and I&O: Vital Signs Temperature 36 C L 11/24/22 07:28 Temperature Source Tympanic 11/24/22 07:28 Pulse 97 H 11/24/22 07:28 Pulse Rhythm Regular 11/24/22 03:15 Respiratory Rate 16 11/24/22 07:28 Respiratory Effort Normal, Non-Labored 11/24/22 03:15 Respiratory Depth Normal 11/24/22 03:15 Respiratory Pattern Normal 11/24/22 03:15 Blood Pressure 110/64 11/24/22 07:28 Blood Pressure Mean 86 11/23/22 11:25 Blood Pressure Position Sitting 11/23/22 11:25 Pulse Oximetry 98 11/24/22 07:28 Respiratory End-tidal CO2 30 11/23/22 14:06 Oxygen Delivery Method Room Air 11/24/22 07:28 Oxygen Flow Rate 0 11/24/22 07:28 Pain Level 2 11/24/22 07:28 Comment r n notified 11/24/22 00:04 Intake & Output 11/23/22 11/23/22 11/24/22 11:59 23:59 11:59 Intake Total 50 / 2349 2299 / 2349 359.333 / 359.333 Output Total 400 / 400 Balance / 9 189 / 194 359.333 / 359.333 Weight 81.6 kg Intake: IV 50 / 1069 1019 / 1069 359.333 / 359.333 Oral 1280 / 1280 Output: Urine 400 / 400 Other: Urine Color Yellow Urine Appearance Clear Clear Urine Odor Normal Emesis Description None Voiding Methods Bedside Commode PFSH All Active Problems A-fib (Chronic) Primary osteoarthritis of right knee (Acute) Chest pain (Acute) ST segment changes on electrocardiogram (Acute) Cardiomyopathy (Chronic) Sebaceous cyst (Acute) Medical History Adenocarcinoma of prostate 09/01/22-ended radiation therapy Ascending aorta dilatation Bursitis of right shoulder (~05/12/19) Carpal tunnel syndrome of right wrist Chronic venous insufficiency Contracture of right knee Cubital tunnel syndrome on right Elevated PSA Hand joint stiff Hx of testicular cancer Impingement syndrome of right shoulder (~05/12/19) Injury of right rotator cuff (05/12/19) Irritable bowel syndrome Left inguinal hernia pt. 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 Surgical History H/O rotator cuff surgery R side History of colon resection For ileus caused by narcotics after previous left total knee replacement History of colonoscopy History of radical prostatectomy History of total left knee replacement (TKR) Social History Smoking/Tobacco Use Status: Never Smoking risk assessment performed?: Yes Alcohol Intake: current Alcohol Intake frequency: a few times a week Alcohol type: beer Drug use: Never Substance use type: does not use Current gender identity: male Do you feel safe at home: Yes Do you feel safe in your relationship?: Yes Time Spent with Patient Time Spent with Patient: <45 minutes Time was spent: obtaining and/or reviewing separately otained hiistory, ordering medications,tests, procedures and counseling the patient
[2022-11-24] MEDS: oxyCODONE 5 MG TAB PO ×2 (07:55→12:50)
[2022-11-24] MEDS: Apixaban 5 MG TAB PO (07:56)
[2022-11-24] MEDS: Acetaminophen 500 MG TAB 1000 MG PO (07:56)
[2022-11-24] MEDS: Celecoxib 200 MG CAP PO (07:57)
[2022-11-24] MEDS: Lactobacillus Acidophilus CAP 1 CAP PO (07:57)
[2022-11-24] MEDS: Pantoprazole 40 MG TABCR PO (07:57)
[2022-11-24] MEDS: Dexamethasone 4 MG TAB PO (07:57)
--- NOTE | 2022-12-07 18:23 | INDS_ITS ---
Date of service: 12/07/22 PT Notes Visit Reasons: Right knee DJD Physical Therapy Day Surgery discharge summary Date: 12/07/2022 Dates of service: 11/23/2022 only This is a clinical summary of care provided for the duration of dates listed above. No charge was made in the completion of this documentation. Referring Doctor:? Marleni Cordero,? MIKY PT Orders: PT CONSULT: S/P Ortho Surgery Precautions:? WBAT on R LE with AD. Patient Profile/Admitting Diagnosis: Raul is a 67-year-old male with primary osteoarthritis of the right knee and is status post right total knee arthroplasty on postoperative day 0. PMHX: Medical History?(Updated 11/19/22 @ 14:40 by MIKY Bee) Adenocarcinoma of prostate Ascending aorta dilatation Bursitis of right shoulder (~05/12/19) Carpal tunnel syndrome of right wrist Chronic venous insufficiency Contracture of right knee Cubital tunnel syndrome on right Elevated PSA Hand joint stiff Hx of testicular cancer Impingement syndrome of right shoulder (~05/12/19) Injury of right rotator cuff (05/12/19) Irritable bowel syndrome Left inguinal hernia Left lateral epicondylitis No-show for appointment Osteoarthritis of right knee Right carpal tunnel syndrome Rotator cuff tear, right (~05/12/19) Scapular dyskinesis SLAP lesion of right shoulder (~05/12/19) Stiffness of right shoulder joint (~05/2019) Tendonitis of long head of biceps brachii of right shoulder (~05/12/19) TIA (transient ischemic attack) Caused by his atrial fibrillation prior to treatment Trigger finger, right little finger Trigger finger, right middle finger (~07/2019) 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 History of colon resection For ileus caused by narcotics after previous left total knee replacementHistory of colonoscopy History of radical prostatectomy History of total left knee replacement (TKR) Social History/Home Situation: Lives with in a private home.? Independent with all ADLs PTS. Equipment Owned/DME: None Subjective: NT. See most recent [employer]CE [employer] INSTALLATION MECHANIC/surgeon's notes. Objective: General Observation: NT. See most recent [employer]CE TR[employer] INSTALLATION MECHANIC/surgeon's notes. Mental Status: NT. See most recent [employer] INSTALLATION MECHANIC/surgeon's notes. Pain: NT. See most recent [employer]CE [employer] INSTALLATION MECHANIC/surgeon's notes. ROM: Right Lower Extremity: Hip flexion WFL. Hip abduction WFL. Knee flexion 0 to 90 degrees. Knee extension 90 degrees to 0.? Ankle dorsiflexion WFL. Ankle plantarflexion WFL. Left Lower Extremity: Hip flexion WFL. Hip abduction WFL. Knee flexion WFL. Ankle dorsiflexion WFL. Ankle plantarflexion WFL. Strength: Right Lower Extremity: Hip flexors 5/5. Hip abductors 5/5. Knee flexors 3-/5. Knee extensors 3-/5. Ankle dorsiflexors 5/5. Ankle plantarflexors 5/5. Left Lower Extremity:Hip flexors 5/5. Hip abductors 5/5. Knee flexors 5/5. Knee extensors 5/5. Ankle dorsiflexors 5/5. Ankle plantarflexors 5/5. Sensation: Intact as to pain and light pressure in B LE Bed Mobility/Transfers: Please see orthopedic surgeon's notes on 11/24/2022. Gait: Please see orthopedic surgeon's notes on 11/24/2022. Balance: Static Sitting: Fair Dynamic Sitting: Fair Static Standing: Fair Dynamic Standing: Fair Assessment: Patient presents with clinical signs and symptoms consistent with current/admitting diagnoses that have resulted to mobility limitations, gait instability, generalized weakness, and impairment of motor control as demonstrated by the following impairment level findings: 1.? Decreased strength to R knee major muscle groups 2.? Impaired standing balance 3.? Limitation of joint range of motion in right knee 4.? Lightheadedness Impairments are contributing to the following functional limitations: 1.? Inability to safely ambulate without assistive device and physical assistance 2.? Increase completion time for mobility ADL performance 3.? Increased fall risk Patient is assessed as a [id number] moderate complexity based on the following: History: 67-year-old male with impairment level findings, functional limitations, and past medical history as indicated above Examination: Demonstrable impairment in strength, balance, and mobility level with underlying impairments and functional limitations as documented above Presentation: [employer] moderate complexity Goals: N/A.? PT evaluation and 1-2 treatment sessions only for functional mobility training using recommended AD and for HEP instruction. Plan of Care/Treatment Plan: N/A.? PT evaluation and 1-2 treatment session only for functional mobility training using recommended AD and for HEP instruction. DISCHARGE RECOMMENDATIONS: Patient will benefit from home health PT services in order to progress mobility level using least restrictive assistive ambulatory device, assess home safety, identify additional equipment needs, and establish a functional maintenance program that will increase ability of patient to remain at home. TREATMENT CODE/TIME: SD Thank you for the opportunity to participate in the care of this patient. Mila Velasquez PT, DPT, CLT [facility] [place], [place]
== END 2022-11-24 13:01 | disposition home or self-care (01) ==
LOC: MS 18:12
PROVIDERS: Admitting Provider Student in an Organized Health Care Education/Training Program; PCP Internal Medicine; Visit Provider Student in an Organized Health Care Education/Training Program
PROC: (CPT 27447; principal; 2022-11-23 12:30)
DX: M17.11 Unilateral primary osteoarthritis, right knee (principal); I77.810 Thoracic aortic ectasia; I87.2 Venous insufficiency (chronic) (peripheral); K58.9 Irritable bowel syndrome, unspecified; Z85.46 Personal history of malignant neoplasm of prostate; Z96.652 Presence of left artificial knee joint; Z86.73 Personal history of transient ischemic attack (TIA), and cerebral infarction without residual deficits; Z90.49 Acquired absence of other specified parts of digestive tract
CPT/HCPCS: 27447; 76942; 96365; 96375; 97162; 97530; G0378; J0690; J1100; J1170; J2405; J2704; J8540

== ENCOUNTER 2022-12-06 08:50 | Outpatient (CLI) | payer BC, SELFPAY ==
--- NOTE | 2022-12-06 08:30 | DI.RAD_ITS ---
Exam(s) XR STANDING ALIGNMENT XR KNEE RT 1V EXAM: XR STANDING ALIGNMENT CLINICAL HISTORY: 1ST POST OP R TKA. TECHNIQUE: 2D digital imaging was performed. Standing AP views were performed from the pelvis throu gh the ankles. COMPARISON: CR XR STANDING ALIGNMENT from 11/19/2022 CR XR KNEE RT 1V from 12/06/2022 FINDINGS: BONES: No acute fracture is present. No bony destructive lesion is seen. Leg length discrepancy: The left femoral head projects 15 millimeters superior to the right. JOINTS: Knees: No change in appearance of left knee prosthesis. Right knee prosthesis has been [place] in the interval which show satisfactory alignment. Some anterior soft tissue swelling remains pr esent. The ankle joints are unremarkable. The hip joints show mild degenerative changes. SOFT TISSUE: Normal. IMPRESSION: Bilateral knee prostheses. . 15 millimeter leg length discrepancy. DATA REPOSITORY: RADIATION DOSE DELIVERED:
== END 2022-12-06 08:51 | disposition home or self-care (01) ==
LOC: DIORS 08:50
PROVIDERS: PCP Internal Medicine; Referring Provider Internal Medicine; Visit Provider Student in an Organized Health Care Education/Training Program
DX: Z96.651 Presence of right artificial knee joint (principal); Z47.1 Aftercare following joint replacement surgery; Z96.652 Presence of left artificial knee joint; M21.70 Unequal limb length (acquired), unspecified site; M16.0 Bilateral primary osteoarthritis of hip
CPT/HCPCS: 73560; 77073

== ENCOUNTER 2022-12-23 12:35 | Outpatient (CLI) | payer BC, SELFPAY ==
[2022-12-23 11:40] LABS: Abs Immature Grans 0.01 10^3/uL (0.0-0.06); Absolute Basophil Count 0.03 10^3/uL (0.0-0.2); Absolute Eosinophil Count 0.47 10^3/uL (0.0-0.7); Absolute Lymphocyte Count 0.91 10^3/uL (1.2-3.4); Absolute Monocyte Count 0.61 10^3/uL (0.1-0.8); Absolute Neutrophil Count 2.33 10^3/uL (1.2-6.7); Basophils % 0.7; Eosinophils % 10.8; HCT 31.2 % (40.0-50.0); HGB 10.2 g/dL (13.5-17.5); Immature Grans % 0.2; Lymphocytes % 20.9; MCH 29.8 pg (27.0-33.0); MCHC 32.7 % (32.0-36.0); MCV 91 fL (80-95); MPV 8.7 fL (8.0-11.0); Neutrophils % 53.4; Platelet Count 169 10^3/uL (130-400); RBC 3.42 10^6/uL (4.36-5.78); RDW 12.9 % (11.8-14.1); RDW-SD 42.5 fL; WBC 4.36 10^3/uL (4.4-10.8)
[2022-12-23 12:41] LABS: ALT 32 U/L (16-63); AST 35 U/L (15-37); Albumin 3.6 g/dL (3.4-5.0); Alkaline Phosphatase 93 U/L (46-116); Anion Gap 7.7 mmol/L (3-11); BUN 21 mg/dL (7-18); Bilirubin, Total 0.4 mg/dL (0.2-1.0); CO2 26.3 mmol/L (21.0-32.0); CREATININE 1.1 mg/dL (0.70-1.30); Chloride 107 mmol/L (98-107); Estimated GFR 72.67 (mL/min/1.73m2); Glucose 102 mg/dL (74-106); Potassium 4.4 mmol/L (3.5-5.1); Sodium 141 mmol/L (136-145); Total Protein 6.9 g/dL (6.4-8.2)
[2022-12-25 11:52] LABS: PSA, Ultrasensitive <0.01 ng/mL (<= 4.5)
[2022-12-27 13:04] LABS: Testosterone, Total <7.0 ng/dL (240-950)
== END 2022-12-23 12:36 | disposition home or self-care (01) ==
LOC: LBO 12:35
PROVIDERS: PCP Internal Medicine; Visit Provider Nurse Practitioner Family
DX: C61 Malignant neoplasm of prostate (principal)
CPT/HCPCS: 36415; 80053; 84153; 84403; 85025

== ENCOUNTER 2022-12-29 11:15 | Outpatient (REF) | payer BC, SELFPAY ==
[2022-12-29 16:34] LABS: HCT 32.9 % (40.0-50.0); HGB 10.7 g/dL (13.5-17.5); MCH 29.8 pg (27.0-33.0); MCHC 32.5 % (32.0-36.0); MCV 92 fL (80-95); MPV 9.6 fL (8.0-11.0); Platelet Count 178 10^3/uL (130-400); RBC 3.59 10^6/uL (4.36-5.78); RDW 12.9 % (11.8-14.1); RDW-SD 42.7 fL; Reticulocyte 1.7 % (0.5-2.4)
[2022-12-29 16:53] LABS: Iron 54 ug/dL (65-175); Total Iron Binding Capacity 283 ug/dL (250-450); Transferrin Sat 19 % (20-55)
[2022-12-29 17:20] LABS: Vitamin B12 449 pg/mL (193-986)
== END 2022-12-29 11:16 | disposition home or self-care (01) ==
LOC: NCHCN 11:15
PROVIDERS: PCP Internal Medicine; Visit Provider Internal Medicine
DX: D64.9 Anemia, unspecified (principal); D72.818 Other decreased white blood cell count
CPT/HCPCS: 85027; 82607; 83540; 83550; 85045

== ENCOUNTER 2023-01-27 13:07 | Outpatient (CLI) | payer BC, SELFPAY ==
[2023-01-27 10:04] LABS: Abs Immature Grans 0.02 10^3/uL (0.0-0.06); Absolute Basophil Count 0.03 10^3/uL (0.0-0.2); Absolute Eosinophil Count 0.25 10^3/uL (0.0-0.7); Absolute Lymphocyte Count 0.77 10^3/uL (1.2-3.4); Absolute Monocyte Count 0.48 10^3/uL (0.1-0.8); Absolute Neutrophil Count 2.81 10^3/uL (1.2-6.7); Basophils % 0.7; Eosinophils % 5.7; HGB 11.7 g/dL (13.5-17.5); Immature Grans % 0.5; Lymphocytes % 17.7; MCH 30.5 pg (27.0-33.0); MCHC 33.4 % (32.0-36.0); MCV 91 fL (80-95); MPV 9.5 fL (8.0-11.0); Neutrophils % 64.4; Platelet Count 156 10^3/uL (130-400); RBC 3.84 10^6/uL (4.36-5.78); RDW 13.2 % (11.8-14.1); RDW-SD 43.9 fL; WBC 4.36 10^3/uL (4.4-10.8)
[2023-01-27 10:20] LABS: ALT 35 U/L (16-63); AST 25 U/L (15-37); Albumin 3.7 g/dL (3.4-5.0); Alkaline Phosphatase 79 U/L (46-116); BUN 19 mg/dL (7-18); Bilirubin, Total 0.6 mg/dL (0.2-1.0); CREATININE 0.8 mg/dL (0.70-1.30); Calcium 8.9 mg/dL (8.5-10.1); Chloride 106 mmol/L (98-107); Glucose 95 mg/dL (74-106); Potassium 4.2 mmol/L (3.5-5.1); Sodium 139 mmol/L (136-145); Total Protein 6.6 g/dL (6.4-8.2)
[2023-01-29 10:18] LABS: PSA, Ultrasensitive <0.01 ng/mL (<= 4.5)
[2023-02-01 14:56] LABS: Testosterone, Total <7.0 ng/dL (240-950)
== END 2023-01-27 13:08 | disposition home or self-care (01) ==
LOC: LBO 13:09
PROVIDERS: PCP Internal Medicine; Visit Provider Radiology Radiation Oncology
DX: C61 Malignant neoplasm of prostate (principal)
CPT/HCPCS: 36415; 80053; 84153; 84403; 85025

== ENCOUNTER 2023-02-26 08:38 | Emergency (ER) | payer BC, SELFPAY ==
[2023-02-26 08:43] VITALS: BP 136/60; PULSE 81; RESP 17; TEMP 36.4; O2SAT 100
--- NOTE | 2023-02-26 09:00 | DI.CT_ITS ---
Exam(s) CT ABDOMEN PELVIS W EXAM: CT ABDOMEN PELVIS W CLINICAL HISTORY: abdominal pain. TECHNIQUE: Imaging Protocol: Axial computed tomography images with coronal and sagittal reformatted images were created and reviewed CONTRAST MATERIAL: Intravenous: Omnipaque-350 100cc Oral: None COMPARISON: CT CT ABDOMEN PELVIS W from 05/30/2020 FINDINGS: VISUALIZED LUNG BASES: Small focal nodular infiltrate is noted in the posterior basal segment left lo wer lobe. No pleural effusions.. ABDOMEN: There is no ascites in the upper abdomen. There is small amount of ascites in the pelvis. LIVER: Liver is hypodense implying steatosis. There are no discrete focal hepatic lesions identified . No dilated intrahepatic ducts. No dilated intrahepatic ducts. GALLBLADDER/BILIARY: No obvious gallbladder pathology. CBD is not dilated. PANCREAS: Pancreatic body and tail appear unremarkable. There is, however, hypodensity in the pancre atic head and uncinate process which may be significant. This may represent inflammatory involvement although cannot exclude subtle neoplasm. Pancreatic duct is not dilated. There is no regional adenopathy. SPLEEN: Spleen is not enlarged. No obvious intrasplenic lesions. Splenic and portal veins are paten t. ADRENALS: There are no significant adrenal masses. KIDNEYS:No cysts evident. No solid renal masses. No calculi nor hydronephrosis.. ABDOMINAL AORTA: Calcified but not enlarged. Heavily calcified plaque again noted at the origin of t he superior mesenteric artery. Possibly indicating stenosis at this level. There are no large mesen teric meandering vessels. LYMPH NODES:There is no retroperitoneal nor paraaortic adenopathy. ABDOMINAL WALL: No evidence of significant anterior abdominal wall nor inguinal hernia. GI: Abnormal thickening of the cecum noted. Also stranding in the colon around the cecum and ascendi ng colon. PELVIS: GI: No evidence of appendicitis.Diverticulosis. No obvious acute diverticulitis. There diverticuli involving entire left side of the colon. Small amount of free fluid in the pelvis noted. LYMPH NODES: There is no intrapelvic nor inguinal adenopathy. REPRODUCTIVE: Prostate not enlarged. URINARY BLADDER: There is diffuse uniform thickening of the urinary bladder wall. No diverticuli. N o calculi at the ureterovesical junctions nor within the urinary bladder lumen. OSSEOUS: No fractures and no significant osseous lesions. Multilevel vertebral fusion at L2-3-4 lumbar vertebral bodies. L5 remains independent. IMPRESSION: 1. Abnormal findings in the right-side of the colon as described above. Close follow-up to rule out malignancy recommended. Either related to colitis or other pathology. Malignancy cannot be excluded . Small amount of free fluid noted in the pelvis may be related to this finding. 2. There is diverticulosis of the entire left side of the colon. No evidence of obvious acute divert iculitis. No appendicitis. 3. There is diffuse thickening of the urinary bladder wall, similar to the prior study. Probable chr onic cystitis. The prostate gland does not appear enlarged. 4. Mild hypodensity involving the head and neck and uncinate process of the pancreas. May represent element of pancreatitis but cannot exclude infiltrative neoplastic disease. This should be further s tudied with contrast infused MRI. Other findings as above. RADIATION DOSE DELIVERED: 960.63mGy.cm Total DLP DATA REPOSITORY: All CT scans at this facility are submitted to the National Radiology Data Registry (NRDR) Dose Index Registry (DIR) with the [employer] (ACR). RADIATION OPTIMIZATION: All CT scans at this facility use at least one of these dose optimization te chniques: automated exposure control; mA and/or kV adjustment per patient size (includes targeted exa ms where dose is matched to clinical indication); or iterative reconstruction.
--- NOTE | 2023-02-26 09:06 | ED.GENADUL_ITS ---
Discharge Plan Disposition Patient Disposition: Home Condition: Stable Discharge Details Clinical Impression: Abdominal pain Primary Care Provider: Hong Sadler ED Provider: Sivakumar Cha Home Meds and New Rx's Prescriptions: New amoxicillin-pot clavulanate 875-125 mg tablet 1 tab PO BID Qty: 14 0RF Continued diphenoxylate-atropine 2.5-0.025 mg tablet 1 tab PO Q2H PRN PRN atorvastatin 40 mg tablet 40 mg PO HS Eliquis 5 mg tablet 5 mg PO BID Hold Instructions: Resume on 11/24/22. pantoprazole 40 mg tablet,delayed release (DR/EC) 40 mg PO DAILY PRN metoprolol tartrate 25 mg tablet 12.5 mg PO HS mirtazapine 15 mg tablet 15 mg PO QHS pregabalin 100 mg capsule 100 mg PO QHS Probiotic 3 billion cell Capsule 1 cell PO DAILY Lupron Depot (3 month) 22.5 mg Syringe Kit IM acetaminophen 500 mg tablet 1,000 mg PO Q8H PRN Qty: 90 0RF Rx Instructions: Take two tablets up to every 8 hours as needed for pain mecobalamin (vitamin B12) [B12 Active] 1,000 mcg Tablet,Chewable 1,000 mcg PO DAILY Centrum Men 50 Plus Minis 751-22-132-150 mcg Tablet 1 tab PO DAILY Discharge Instructions Instructions: Abdominal Pain (ED) Additional Instructions: your blood work did not show concerning findings You had a localized area of inflammation in your colon that could be due to an infection Follow up with your primary care provider within 1-2 weeks to discuss having a colonoscopy if you feel more ill, have severe worsening pain or persistent vomiting return to the emergency department Medical Decision Making 67 yo male with hx of afib, gerd, hld, prior colon resection over 10 years ago after he states he had a blockage of his intestines, comes in with abdominal pain since around 3pm yesterday. HE denies fevers, chills, vomiting, chest pain, dyspnea, urinary symptoms, testicle pain. HE has had multiple bowel movements per patient. HE localizes the pain to the mid and right lower abdomen. HE arrives stable and in no distress on exam. His abdomen is thin, non distended, with tenderness in the mid and rlq abdomen, no upper abdominal tenderness. Given location of pain concern for appendicitis vs sbo, will proceed with cbc, cmp, lipase, ua, and ct abdomen/pelvis labs show no significant acute abnormality, ct shows assymetric thickening in the cecum secondary to infection vs inflammation, can't exclude malignancy, no sbo, normal appendix. He feels better, has minimal tednerness now with deep palpation to the mid abdomen. He feels well enough for d/c, given localized area of inflammation will treat with augmentin. HE will f/u with pcp and discuss h aving another colonoscopy, he states he has had his routine colonoscopies in the past. Return precautions given Differential Diagnosis Differential Diagnosis: appendicitis, pancreatitis, sbo Medical Records Medical records reviewed: Yes I reviewed the patient's medical records. Imaging Data Radiologic Study: Attestation: I personally reviewed and interpreted this imaging study as follows: Imaging: CT Scan Radiologist's impression: IMPRESSION: 1. Significant asymmetric wall thickening in the cecum may be secondary to infection or inflammation; malignancy cannot be excluded. 2. Prominent but not abnormally dilated small bowel loops in the pelvis may be secondary to enteritis. There is no evidence of intestinal obstruction. 3. Atherosclerotic disease. 4. Multilevel lumbar degenerative changes. Lab Data Lab results reviewed: Yes I reviewed the patient's lab results. HPI General Mode of arrival: ambulatory . Date/Time Provider Initiated Documentation: 02/26/23 08:41 . Limitations to Documentation: no limitations . Information obtained by: patient . History of Present Illness 67 year old M presents to the emergency department with the chief complaint of abdominal pain, described as moderate, with intensity rated at 5. Quality is described as sharp, and is localized to the abdomen. Patient reports no radiation. Patient started experiencing this day(s) (1) and it has been constant. No relieving factors improve symptom(s), No exacerbating factors reported . Patient notes no other symptoms.; denies chest pain and fever/chills. Patient did receive the following treatments prior to arrival, none Related Data Home Medications Medication Instructions Recorded Confirmed apixaban 5 mg tablet (Eliquis) 5 mg PO BID 03/12/19 02/26/23 atorvastatin 40 mg tablet 40 mg PO HS 03/12/19 02/26/23 diphenoxylate-atropine 2.5 1 tab PO Q2H PRN PRN 03/12/19 02/26/23 mg-0.025 mg tablet pantoprazole 40 mg tablet,delayed 40 mg PO DAILY PRN 03/12/19 02/26/23 release lactobacillus combination no.4 3 1 cell PO DAILY 06/29/19 02/26/23 billion cell capsule (Probiotic) metoprolol tartrate 25 mg tablet 12.5 mg PO HS 12/24/21 02/26/23 leuprolide (3 month) 22.5 mg (3 mg IM 11/22/22 01/31/23 month) intramuscular syringe kit (Lupron Depot) acetaminophen 500 mg tablet 1,000 mg PO Q8H PRN pain #90 tabs 11/23/22 02/26/23 mecobalamin (vitamin B12) 1,000 1,000 mcg PO DAILY 11/23/22 02/26/23 mcg chewable tablet (B12 Active) [id number] 150 mcg-vit K1 1 tab PO DAILY 11/23/22 02/26/23 30 mcg-lycop 300 mcg-lutein tablet (Centrum Men 50 Plus Minis) mirtazapine 15 mg tablet 15 mg PO QHS 12/07/22 02/26/23 pregabalin 100 mg capsule 100 mg PO QHS 01/04/23 02/26/23 amoxicillin 875 mg-potassium 1 tab PO BID #14 tabs 02/26/23 clavulanate 125 mg tablet Previous Rx's Medication Instructions Recorded acetaminophen 500 mg tablet 1,000 mg PO Q8H PRN pain #90 tabs 11/23/22 amoxicillin 875 mg-potassium 1 tab PO BID #14 tabs 02/26/23 clavulanate 125 mg tablet Allergies Allergy/AdvReac Type Severity Reaction Status Date / Time No Known Allergies Allergy Verified 02/26/23 08:47 General Stated Complaint: Abd Prob HERMAN: 3 Review of Systems All systems reviewed & are unremarkable except as noted in HPI and below Constitutional Constitutional: Denies chills, Denies fever(s) and Denies weakness Cardiovascular Cardiovascular: Denies chest pain and Denies dyspnea Respiratory Respiratory: Denies cough and Denies dyspnea Gastrointestinal Gastrointestinal: Denies vomiting Genitourinary Genitourinary: Denies dysuria Integumentary/Breasts Skin/Breast: Denies rash Neurologic Neurologic: Denies weakness PFSH All Active Problems (Updated 02/26/23 @ 10:56 by Sivakumar Cha MD) Abdominal pain (Acute) Peripheral edema (Acute) History of total right knee replacement (Acute 11/23/22) A-fib (Chronic) Chest pain (Acute) ST segment changes on electrocardiogram (Acute) Cardiomyopathy (Chronic) Sebaceous cyst (Acute) Medical History Adenocarcinoma of prostate 09/01/22-ended radiation therapy Ascending aorta dilatation Bursitis of right shoulder (~05/12/19) Carpal tunnel syndrome of right wrist Chronic venous insufficiency Contracture of right knee Cubital tunnel syndrome on right Elevated PSA Hand joint stiff Hx of testicular cancer Impingement syndrome of right shoulder (~05/12/19) Injury of right rotator cuff (05/12/19) Irritable bowel syndrome Left inguinal hernia pt. 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 Surgical History H/O rotator cuff surgery R side History of colon resection For ileus caused by narcotics after previous left total knee replacement History of colonoscopy History of radical prostatectomy History of total left knee replacement (TKR) Social History Smoking/Tobacco Use Status: Never Smoking risk assessment performed?: Yes Alcohol Intake: current Alcohol Intake frequency: a few times a week Alcohol type: beer Drug use: Never Substance use type: does not use Current gender identity: male Do you feel safe at home: Yes Do you feel safe in your relationship?: Yes Exam Const General: no acute distress Orientation: alert HENLA Head: normal to inspection Ears: external ears normal General nose exam: external nose normal Mouth: moist mucous membranes Eyes General: appearance normal, both eyes and all related structures Neck Neck: normal visual inspection Resp Effort & Inspection: normal respiratory effort and able to speak in complete sentences Cardio Rate: regular rate GI Palpation: soft and tender Skin General skin exam: no rashes or lesions noted Neuro General: patient alert and patient oriented x3 Extrem General: normal to inspection Psych Mental Status: mental status grossly normal Course Vital Signs Vital signs: Vital Signs Temperature 36.4 C L 02/26/23 08:43 Pulse 81 02/26/23 08:43 Respiratory Rate 17 02/26/23 08:43 Blood Pressure 136/60 02/26/23 08:43 Pulse Oximetry 100 02/26/23 08:43 Temperature 36.4 C L 02/26/23 08:43 Temperature Source Temporal Artery Scan 02/26/23 08:43 Pulse 81 02/26/23 08:43 Respiratory Rate 17 02/26/23 08:43 Respiratory Effort Normal 02/26/23 08:46 Blood Pressure 136/60 02/26/23 08:43 Blood Pressure Position Sitting 02/26/23 08:43 Pulse Oximetry 100 02/26/23 08:43 Oxygen Delivery Method Room Air 02/26/23 08:43 Oxygen Flow Rate 0 02/26/23 08:43 Pain Level 5 02/26/23 08:43
[2023-02-26 09:28] LABS: Abs Immature Grans 0.04 10^3/uL (0.0-0.06); Absolute Basophil Count 0.02 10^3/uL (0.0-0.2); Absolute Eosinophil Count 0.07 10^3/uL (0.0-0.7); Absolute Lymphocyte Count 0.46 10^3/uL (1.2-3.4); Absolute Neutrophil Count 6.48 10^3/uL (1.2-6.7); Basophils % 0.3; Eosinophils % 0.9; HCT 36.4 % (40.0-50.0); HGB 12.1 g/dL (13.5-17.5); Immature Grans % 0.5; Lymphocytes % 5.9; MCH 29.8 pg (27.0-33.0); MCHC 33.2 % (32.0-36.0); MCV 90 fL (80-95); MPV 9.1 fL (8.0-11.0); Neutrophils % 83.4; Platelet Count 146 10^3/uL (130-400); RBC 4.06 10^6/uL (4.36-5.78); RDW 13.2 % (11.8-14.1); RDW-SD 44.1 fL; WBC 7.77 10^3/uL (4.4-10.8)
[2023-02-26] MEDS: Omnipaque 350 MG/ML 50 ML BTL 100 ML IJ (09:41)
[2023-02-26] MEDS: Normal Saline - Diluent 50 ML VIAL IJ (09:42)
[2023-02-26 09:45] LABS: ALT 47 U/L (16-63); AST 38 U/L (15-37); Albumin 3.7 g/dL (3.4-5.0); Alkaline Phosphatase 84 U/L (46-116); Anion Gap 5.6 mmol/L (3-11); BUN 19 mg/dL (7-18); Bilirubin, Total 0.9 mg/dL (0.2-1.0); CO2 26.4 mmol/L (21.0-32.0); Calcium 9.3 mg/dL (8.5-10.1); Chloride 105 mmol/L (98-107); Estimated GFR 81.47 (mL/min/1.73m2); Glucose 113 mg/dL (74-106); Lipase 18 U/L (16-77); Magnesium 1.8 mg/dL (1.8-2.4); Sodium 137 mmol/L (136-145); Total Protein 6.9 g/dL (6.4-8.2)
[2023-02-26 09:54] LABS: PTT Activated 27.9 sec (21.5-31.9); Prothrombin Time 10.4 sec (9.3-11.0)
[2023-02-26] MEDS: Ketorolac 15 MG/ML VIAL IVP (10:02)
[2023-02-26] MEDS: Normal Saline 1,000 ML 1000 ML IV (10:03)
[2023-02-26 10:04] LABS: Bilirubin Negative (Negative); Blood Trace-lysed (Negative); Clarity Clear (Clear); Glucose Negative (Negative); Ketones Negative (Negative); Leukocyte Esterase Negative (Negative); Nitrite Negative (Negative); Specific Gravity <= 1.005 (1.005-1.025); Urobilinogen 0.2 mg/dL (Up to 0.2)
[2023-02-26 10:10] LABS: Bacteria Negative HPF (Negative); C & S Indicated? No; Casts Negative LPF (Negative); Crystals Negative HPF (Negative); Epithelial Cells Rare HPF (Negative); Mucus Negative (Negative); RBC 0-2 HPF (0-2); WBC Negative HPF (0-5)
--- NOTE | 2023-02-26 10:15 | DI.VRAD_ITS ---
PROCEDURE INFORMATION: Exam: CT Abdomen And Pelvis With Contrast Exam date and time: 02/26/2023 9:31 AM Age: 67 years old Clinical indication: Abdominal pain TECHNIQUE: Imaging protocol: Computed tomography of the abdomen and pelvis with contrast. COMPARISON: CT ABDOMEN PELVIS W 05/30/2020 8:42 AM FINDINGS: Liver: Normal. No mass. Gallbladder and bile ducts: Normal. No calcified stones. No ductal dilation. Pancreas: Normal. No ductal dilation. Spleen: Normal. No splenomegaly. Adrenal glands: Normal. No mass. Kidneys and ureters: Normal. No hydronephrosis. Stomach and bowel: Significant asymmetric wall thickening in the cecum may be secondary to infection or inflammation; malignancy cannot be excluded. Prominent but not abnormally dilated small bowel loops in the pelvis may be secondary to enteritis. There is no evidence of intestinal obstruction. Appendix: The appendix is normal. Intraperitoneal space: Small free fluid in the pelvis. No pneumoperitoneum. No loculated fluid collections. Vasculature: There is atherosclerotic calcification of the abdominal aorta. There is no abdominal aortic aneurysm. Lymph nodes: Unremarkable. No enlarged lymph nodes. Urinary bladder: Unremarkable as visualized. Reproductive: Unremarkable as visualized. Bones/joints: Complete anterior fusion of L2 through L4. L1-L2, L4-L5, and L5-S1 disc space narrowing with significant endplate spondylotic changes. Soft tissues: Unremarkable. IMPRESSION: 1. Significant asymmetric wall thickening in the cecum may be secondary to infection or inflammation; malignancy cannot be excluded. 2. Prominent but not abnormally dilated small bowel loops in the pelvis may be secondary to enteritis. There is no evidence of intestinal obstruction. 3. Atherosclerotic disease. 4. Multilevel lumbar degenerative changes. Dictated and Authenticated by: Mick Braswell MD. Ordering:SANTI Shaver MD
== END 2023-02-26 11:11 | disposition home or self-care (01) ==
PROVIDERS: Emergency Provider Emergency Medicine; PCP Internal Medicine
DX: R10.9 Unspecified abdominal pain (principal); I48.91 Unspecified atrial fibrillation; K21.9 Gastro-esophageal reflux disease without esophagitis
CPT/HCPCS: 36415; 80053; 83690; 96361; 96374; 99285; 74177; 81003; 81015; 83735; 85025; 85610; 85730; 99284; J1885; Q9967

== ENCOUNTER 2023-03-25 11:02 | Outpatient (REF) | payer BC, SELFPAY ==
[2023-03-25 14:58] LABS: HCT 36.3 % (40.0-50.0); HGB 11.9 g/dL (13.5-17.5); MCHC 32.8 % (32.0-36.0); MCV 88 fL (80-95); MPV 10.4 fL (8.0-11.0); Platelet Count 184 10^3/uL (130-400); RBC 4.11 10^6/uL (4.36-5.78); RDW 13.2 % (11.8-14.1); RDW-SD 42.7 fL; WBC 4.46 10^3/uL (4.4-10.8)
[2023-03-25 15:09] LABS: Iron 86 ug/dL (65-175); Total Iron Binding Capacity 296 ug/dL (250-450); Transferrin Sat 29 % (20-55)
[2023-03-25 22:24] LABS: PSA, Diagnostic <0.1 ng/mL (<=4.5)
== END 2023-03-25 11:03 | disposition home or self-care (01) ==
LOC: NCHCN 11:02
PROVIDERS: PCP Internal Medicine; Visit Provider Internal Medicine
DX: D64.9 Anemia, unspecified (principal); C61 Malignant neoplasm of prostate
CPT/HCPCS: 85027; 83540; 83550; 84153

== ENCOUNTER 2023-04-26 15:48 | Outpatient (CLI) | payer BC, SELFPAY ==
[2023-04-26 14:40] LABS: Abs Immature Grans 0.02 10^3/uL (0.0-0.06); Absolute Basophil Count 0.04 10^3/uL (0.0-0.2); Absolute Lymphocyte Count 1.12 10^3/uL (1.2-3.4); Absolute Monocyte Count 0.59 10^3/uL (0.1-0.8); Absolute Neutrophil Count 2.39 10^3/uL (1.2-6.7); Basophils % 0.9; Eosinophils % 4.6; HCT 34.1 % (40.0-50.0); HGB 11.4 g/dL (13.5-17.5); Immature Grans % 0.5; Lymphocytes % 25.7; MCH 29.4 pg (27.0-33.0); MCHC 33.4 % (32.0-36.0); MCV 88 fL (80-95); MPV 8.7 fL (8.0-11.0); Monocytes % 13.5; Neutrophils % 54.8; Platelet Count 173 10^3/uL (130-400); RBC 3.88 10^6/uL (4.36-5.78); RDW 13.2 % (11.8-14.1); RDW-SD 42.5 fL; WBC 4.36 10^3/uL (4.4-10.8)
[2023-04-26 15:15] LABS: ALT 29 U/L (16-63); AST 22 U/L (15-37); Albumin 3.6 g/dL (3.4-5.0); Alkaline Phosphatase 84 U/L (46-116); Anion Gap 7.1 mmol/L (3-11); BUN 31 mg/dL (7-18); Bilirubin, Total 0.4 mg/dL (0.2-1.0); CO2 26.9 mmol/L (21.0-32.0); CREATININE 1.1 mg/dL (0.70-1.30); Calcium 8.6 mg/dL (8.5-10.1); Chloride 107 mmol/L (98-107); Estimated GFR 72.67 (mL/min/1.73m2); Glucose 116 mg/dL (74-106); Potassium 4.4 mmol/L (3.5-5.1); Sodium 141 mmol/L (136-145); Total Protein 6.5 g/dL (6.4-8.2)
[2023-04-28 19:38] LABS: PSA, Ultrasensitive <0.01 ng/mL (<= 4.5)
[2023-04-30 13:41] LABS: Testosterone, Total <7.0 ng/dL (240-950)
== END 2023-04-26 15:49 | disposition home or self-care (01) ==
LOC: LBO 15:48
PROVIDERS: PCP Internal Medicine; Visit Provider Nurse Practitioner Family
DX: C61 Malignant neoplasm of prostate (principal)
CPT/HCPCS: 36415; 80053; 84153; 84403; 85025

== ENCOUNTER 2023-07-20 11:54 | Outpatient (CLI) | payer BC, SELFPAY ==
[2023-07-20 11:01] LABS: Abs Immature Grans 0.01 10^3/uL (0.0-0.06); Absolute Basophil Count 0.03 10^3/uL (0.0-0.2); Absolute Eosinophil Count 0.14 10^3/uL (0.0-0.7); Absolute Lymphocyte Count 0.97 10^3/uL (1.2-3.4); Absolute Monocyte Count 0.53 10^3/uL (0.1-0.8); Absolute Neutrophil Count 2.69 10^3/uL (1.2-6.7); Basophils % 0.7; Eosinophils % 3.2; HCT 35.1 % (40.0-50.0); HGB 11.5 g/dL (13.5-17.5); Immature Grans % 0.2; Lymphocytes % 22.2; MCH 29.6 pg (27.0-33.0); MCHC 32.8 % (32.0-36.0); MCV 90 fL (80-95); Monocytes % 12.1; Neutrophils % 61.6; Platelet Count 175 10^3/uL (130-400); RBC 3.89 10^6/uL (4.36-5.78); RDW 12.9 % (11.8-14.1); RDW-SD 42.4 fL; WBC 4.37 10^3/uL (4.4-10.8)
[2023-07-20 11:17] LABS: ALT 35 U/L (16-63); AST 29 U/L (15-37); Albumin 3.4 g/dL (3.4-5.0); Alkaline Phosphatase 88 U/L (46-116); Anion Gap 6.1 mmol/L (3-11); BUN 21 mg/dL (7-18); Bilirubin, Total 0.6 mg/dL (0.2-1.0); CO2 26.9 mmol/L (21.0-32.0); CREATININE 1.1 mg/dL (0.70-1.30); Chloride 105 mmol/L (98-107); Estimated GFR 72.67 (mL/min/1.73m2); Glucose 127 mg/dL (74-106); Potassium 4.4 mmol/L (3.5-5.1); Sodium 138 mmol/L (136-145); Total Protein 6.7 g/dL (6.4-8.2)
[2023-07-21 20:00] LABS: PSA, Ultrasensitive <0.01 ng/mL (<= 4.5)
[2023-07-23 10:32] LABS: Testosterone, Total <7.0 ng/dL (240-950)
== END 2023-07-20 11:55 | disposition home or self-care (01) ==
LOC: LBO 11:54
PROVIDERS: PCP Internal Medicine; Visit Provider Nurse Practitioner Family
DX: C61 Malignant neoplasm of prostate (principal)
CPT/HCPCS: 36415; 80053; 84153; 84403; 85025

== ENCOUNTER 2023-10-07 12:00 | Outpatient (CLI) | payer BC, SELFPAY ==
[2023-10-07 10:52] LABS: Abs Immature Grans 0.02 10^3/uL (0.0-0.06); Absolute Basophil Count 0.03 10^3/uL (0.0-0.2); Absolute Eosinophil Count 0.19 10^3/uL (0.0-0.7); Absolute Lymphocyte Count 1.08 10^3/uL (1.2-3.4); Absolute Monocyte Count 0.71 10^3/uL (0.1-0.8); Absolute Neutrophil Count 4.07 10^3/uL (1.2-6.7); Basophils % 0.5; Eosinophils % 3.1; HCT 35.3 % (40.0-50.0); HGB 11.6 g/dL (13.5-17.5); Immature Grans % 0.3; Lymphocytes % 17.7; MCH 29.9 pg (27.0-33.0); MCHC 32.9 % (32.0-36.0); MCV 91 fL (80-95); MPV 9.3 fL (8.0-11.0); Monocytes % 11.6; Neutrophils % 66.8; Platelet Count 188 10^3/uL (130-400); RBC 3.88 10^6/uL (4.36-5.78); RDW 12.9 % (11.8-14.1); RDW-SD 42.5 fL
[2023-10-07 11:42] LABS: ALT 25 U/L (16-63); AST 19 U/L (15-37); Albumin 3.3 g/dL (3.4-5.0); Alkaline Phosphatase 89 U/L (46-116); Anion Gap 3.8 mmol/L (3-11); BUN 24 mg/dL (7-18); Bilirubin, Total 0.5 mg/dL (0.2-1.0); CO2 30.2 mmol/L (21.0-32.0); Chloride 106 mmol/L (98-107); Estimated GFR 80.97 (mL/min/1.73m2); Glucose 106 mg/dL (74-106); Potassium 4.6 mmol/L (3.5-5.1); Sodium 140 mmol/L (136-145); Total Protein 6.7 g/dL (6.4-8.2)
[2023-10-10 10:39] LABS: PSA, Ultrasensitive <0.01 ng/mL (<= 6.5)
[2023-10-11 16:33] LABS: Testosterone, Total <7.0 ng/dL (240-950)
== END 2023-10-07 12:01 | disposition home or self-care (01) ==
LOC: LBO 12:00
PROVIDERS: PCP Internal Medicine; Visit Provider Colon & Rectal Surgery
DX: C61 Malignant neoplasm of prostate (principal)
CPT/HCPCS: 36415; 80053; 84153; 84403; 85025

== ENCOUNTER 2023-11-28 15:11 | Outpatient (CLI) | payer BC, SELFPAY ==
--- NOTE | 2023-11-28 10:09 | DI.RAD_ITS ---
Exam(s) XR KNEE RT 2V AP,LAT EXAM: XR KNEE RT 2V AP,LAT CLINICAL HISTORY: annual f/u R TKA. TECHNIQUE: 2D digital imaging was performed. Two views. COMPARISON: CR XR KNEE RT 1V from 12/06/2022 CR XR STANDING ALIGNMENT from 12/06/2022 FINDINGS: BONES: No acute fracture is present. No bony destructive lesion is seen. JOINTS: There has been no change in the alignment of the total knee prosthesis. The knee is normally aligned. No joint effusion is seen. SOFT TISSUE: Normal. IMPRESSION: Stable appearance of total knee prosthesis. DATA REPOSITORY: RADIATION DOSE DELIVERED:
== END 2023-11-28 15:12 | disposition home or self-care (01) ==
LOC: DIORS 15:11
PROVIDERS: PCP Internal Medicine; Visit Provider Student in an Organized Health Care Education/Training Program
DX: Z96.651 Presence of right artificial knee joint (principal); Z47.1 Aftercare following joint replacement surgery
CPT/HCPCS: 73560

== ENCOUNTER 2023-12-26 15:44 | Outpatient (CLI) | payer BC, SELFPAY ==
[2023-12-26 16:06] LABS: HCT 36.2 % (40.0-50.0); HGB 11.8 g/dL (13.5-17.5); MCH 30.3 pg (27.0-33.0); MCHC 32.6 % (32.0-36.0); MCV 93 fL (80-95); MPV 9.4 fL (8.0-11.0); Platelet Count 191 10^3/uL (130-400); RDW 12.8 % (11.8-14.1); RDW-SD 43.4 fL; WBC 6.18 10^3/uL (4.4-10.8)
[2023-12-26 17:58] LABS: Ferritin 53 ng/mL (26-388)
== END 2023-12-26 15:45 | disposition home or self-care (01) ==
LOC: LBO 15:48
PROVIDERS: PCP Internal Medicine; Visit Provider Nurse Practitioner Adult Health
DX: K92.1 Melena (principal)
CPT/HCPCS: 36415; 85027; 82728

== ENCOUNTER 2024-01-05 13:21 | Outpatient (CLI) | payer BC, SELFPAY ==
[2024-01-05 12:52] LABS: Abs Immature Grans 0.02 10^3/uL (0.0-0.06); Absolute Basophil Count 0.03 10^3/uL (0.0-0.2); Absolute Lymphocyte Count 1.36 10^3/uL (1.2-3.4); Absolute Monocyte Count 0.76 10^3/uL (0.1-0.8); Absolute Neutrophil Count 4.17 10^3/uL (1.2-6.7); Basophils % 0.5; Eosinophils % 3.1; HCT 36.6 % (40.0-50.0); HGB 12.1 g/dL (13.5-17.5); Immature Grans % 0.3; Lymphocytes % 20.8; MCHC 33.1 % (32.0-36.0); MCV 91 fL (80-95); MPV 9.1 fL (8.0-11.0); Monocytes % 11.6; Neutrophils % 63.7; Platelet Count 186 10^3/uL (130-400); RBC 4.04 10^6/uL (4.36-5.78); RDW 12.7 % (11.8-14.1); RDW-SD 42.2 fL; WBC 6.54 10^3/uL (4.4-10.8)
[2024-01-05 13:43] LABS: ALT 39 U/L (16-63); AST 24 U/L (15-37); Albumin 3.5 g/dL (3.4-5.0); Alkaline Phosphatase 101 U/L (46-116); Anion Gap 9.7 mmol/L (3-11); BUN 25 mg/dL (7-18); Bilirubin, Total 0.5 mg/dL (0.2-1.0); CO2 26.3 mmol/L (21.0-32.0); CREATININE 1.1 mg/dL (0.70-1.30); Calcium 8.8 mg/dL (8.5-10.1); Chloride 107 mmol/L (98-107); Estimated GFR 72.22 (mL/min/1.73m2); Glucose 100 mg/dL (74-106); Potassium 4.4 mmol/L (3.5-5.1); Sodium 143 mmol/L (136-145); Total Protein 6.9 g/dL (6.4-8.2)
[2024-01-07 10:02] LABS: PSA, Ultrasensitive <0.01 ng/mL (<= 6.5)
[2024-01-08 10:21] LABS: Testosterone, Total <7.0 ng/dL (240-950)
== END 2024-01-05 13:22 | disposition home or self-care (01) ==
LOC: LBO 13:22
PROVIDERS: PCP Internal Medicine; Visit Provider Colon & Rectal Surgery
DX: C61 Malignant neoplasm of prostate (principal)
CPT/HCPCS: 36415; 80053; 84153; 84403; 85025

== ENCOUNTER 2024-03-16 14:52 | Emergency (ER) | payer BC, SELFPAY ==
--- NOTE | 2024-03-16 15:00 | DI.CT_ITS ---
Exam(s) CT CHEST/ABD/PEL W CT THORACIC LUMBAR SPINE REC EXAM: CT CHEST/ABD/PEL W and CT thoracic and lumbar spine recons CLINICAL HISTORY: trauma, fall 4 foot ladder, bilateral flank pain TECHNIQUE: Imaging Protocol: Axial computed tomography images with coronal and sagittal reformatted images were created and reviewed CONTRAST MATERIAL: Intravenous: Omnipaque 350 contrast volume:100 mL Oral: No COMPARISON: CT CT ABDOMEN PELVIS W from 02/26/[address] THORACIC LUMBAR SPINE REC from 03/16/2024 FINDINGS: CHEST: Tracheobronchial tree: Patent where visualized. Pulmonary parenchyma: There are dependent atelectatic changes in the lungs left greater than right. No architectural distortion. Visualized thyroid gland: There is a 1.9 cm heterogeneous nodule in the left lobe of the thyroid glan d. Nonemergent thyroid ultrasound is recommended for further evaluation. Mediastinum and Chel: No dominant adenopathy or fluid collection. The esophagus is unremarkable. Pleura: There is a small left pleural effusion. No right pleural effusion. No pneumothorax. Heart: The heart is not dilated. Coronary artery calcifications are present. No pericardial effusion . Pulmonary arteries: Due to the timing of the bolus, pulmonary artery opacification is suboptimal for evaluation of pulmonary emboli. No large central pulmonary embolism is seen. Aorta: Thoracic aorta non-dilated. No evidence of dissection. Atherosclerotic calcification is prese nt. Lymph nodes: Within normal limits. Soft tissues: Unremarkable. Bones:Within normal limits for the patient's age. There is a nondisplaced fracture of the posterior medial aspect of the left 10th rib. There is a displaced fracture of the posterolateral aspect of th e left 11th rib. There is a markedly displaced comminuted fracture involving the posterior and later al aspect of the 12th rib. There is a question of a nondisplaced fracture involving the posterior as pect of the right 12th rib. Thoracic spine recons: Age-appropriate degenerative changes are present throughout the thoracic spine . There is a mild right convex curvature of the thoracic spine. No acute fracture or subluxation is seen. ABDOMEN: Liver: Normal density. No measurable mass. Portal, Superior Mesenteric, and Splenic Veins: Unremarkable. Gallbladder and Biliary Tract: No radiodense calculus or dilation. Pancreas: Normal density, no abnormal calcifications or inflammatory process. Spleen: Normal. Adrenals: No masses seen. Kidneys: Normal size, contour and axis. 2 mm nonobstructing stone in the lower pole of the right kidn ey. No masses seen. Abdominal Aorta: Abdominal portion non-dilated. Atherosclerotic calcification is present. Bowel: There is diverticulosis of the colon without evidence of acute diverticulitis. There is no ev idence of bowel obstruction or bowel wall thickening. Appendix is unremarkable. Peritoneal Cavity: No ascites, collection or mesenteric inflammatory response. No free air. Lymph Nodes: Within normal limits. Bones: Within normal limits for the patient's age. Soft Tissues: Unremarkable. PELVIS: Bladder: Symmetric distention, no gross wall thickening. Reproductive Organs: Unremarkable as visualized. Lymph Nodes: Within normal limits. Bones: Age-appropriate degenerative changes are present. Lumbar spine recons: There is an old healed fracture deformity of the right L1 transverse process. T here is a nondisplaced fracture of the left L1 transverse process fracture. There is an old fracture deformity of the left L2 transverse process. Multilevel degenerative changes are seen throughout th e lumbar spine. There is fusion of the L2 through L4 vertebral bodies. Multilevel degenerative leiva ges are present in the lumbar spine with disc space narrowing, vacuum discs and endplate osteophytes at L1-L2, L4-L5 and L5-S1. There is reversal of the normal lumbar lordosis. Facet arthropathy is pr esent throughout. IMPRESSION: 1. Fractures involving the posterior left 10th, 11th and 12th ribs, the right 12th rib, left L1 trans verse process fracture. 2. Small left pleural effusion. No pneumothorax. 3. Mild basilar atelectasis, left greater than right. 4. No abdominal or pelvic organ injury. 5. Findings were discussed with Dr. Welch at 5:13 p.m. on 03/16/2024. RADIATION DOSE DELIVERED: Total DLP DATA REPOSITORY: All CT scans at this facility are submitted to the National Radiology Data Registry (NRDR) Dose Index Registry (DIR) with the [employer] ([employer]). RADIATION OPTIMIZATION: All CT scans at this facility use at least one of these dose optimization te chniques: automated exposure control; mA and/or kV adjustment per patient size (includes targeted exa ms where dose is matched to clinical indication); or iterative reconstruction.
[2024-03-16 15:03] VITALS: BP 141/68; PULSE 80; RESP 18; TEMP 36.8; O2SAT 100
--- NOTE | 2024-03-16 15:13 | DI.CT_ITS ---
Exam(s) CT HEAD CERVICAL SPINE WO EXAM: CT HEAD CERVICAL SPINE WO CLINICAL HISTORY: fall 4 feet, on AC. TECHNIQUE: Imaging Protocol: Axial computed tomography images with coronal and sagittal reformatted images were created and reviewed COMPARISON: No exams were available for comparison FINDINGS: CT Head: Ventricles and Extra axial spaces: Normal in size and morphology for the patient's age. Hemorrhage: None. Cerebral parenchyma: There are areas of decreased attenuation in the white matter most consistent wit h chronic microvascular ischemic disease. Midline shift: None. Brainstem/Cerebellum: Normal. Calvarium: Normal. Visualized Paranasal sinuses/Mastoids: Clear. Soft Tissues: Unremarkable. CT Cervical Spine: Bones: No acute fracture or subluxation. Age-appropriate degenerative changes are seen in the cervica l spine. Soft Tissues: Unremarkable. Lung Apices: Clear. IMPRESSION: 1. No acute intracranial process. 2. No acute fracture or subluxation in the cervical spine. RADIATION DOSE DELIVERED: Total DLP DATA REPOSITORY: All CT scans at this facility are submitted to the National Radiology Data Registry (NRDR) Dose Index Registry (DIR) with the [employer] ([employer]). RADIATION OPTIMIZATION: All CT scans at this facility use at least one of these dose optimization te chniques: automated exposure control; mA and/or kV adjustment per patient size (includes targeted exa ms where dose is matched to clinical indication); or iterative reconstruction.
--- NOTE | 2024-03-16 15:16 | ED.GENADUL_ITS ---
Discharge Plan Disposition Patient Disposition: Home Condition: Improving Discharge Details Clinical Impression: Fracture, ribs, Fracture of spinous process of lumbar vertebra Primary Care Provider: Hong Sadler ED Provider: Harinder Welch Home Meds and New Rx's Prescriptions: New lidocaine [Lidoderm] 5 % adhesive patch,medicated 1 patch topical DAILY PRN7 Days Qty: 15 0RF Rx Instructions: leave on most painful area for up to 12 hrs cyclobenzaprine 5 mg tablet 5 mg PO QHS PRN (Reason: muscle spasm) Qty: 5 0RF Rx Instructions: do not take with narcotic medications No Action gabapentin 300 mg capsule 300 mg PO TID diphenoxylate-atropine 2.5-0.025 mg tablet 1 tab PO Q2H PRN PRN atorvastatin 40 mg tablet 40 mg PO HS Eliquis 5 mg tablet 5 mg PO BID Hold Instructions: Resume on 11/24/22. pantoprazole 40 mg tablet,delayed release (DR/EC) 40 mg PO DAILY PRN metoprolol tartrate 25 mg tablet 12.5 mg PO HS mirtazapine 15 mg tablet 15 mg PO QHS Probiotic 3 billion cell Capsule 1 cell PO DAILY Lupron Depot (3 month) 22.5 mg Syringe Kit 22.5 mg IM .COMPLEX Rx Instructions: 22.5 mg intramuscularly q3mo; acetaminophen 500 mg tablet 1,000 mg PO Q8H PRN Qty: 90 0RF Rx Instructions: Take two tablets up to every 8 hours as needed for pain mecobalamin (vitamin B12) [B12 Active] 1,000 mcg Tablet,Chewable 1,000 mcg PO DAILY Centrum Minis Men 50 Plus [id number] mcg Tablet 1 tab PO DAILY Discharge Instructions Instructions: Rib Fracture or Bruised Rib ED Additional Instructions: Please use incentive spirometer as instructed. Start with acetaminophen, ibuprofen, and Lidoderm patch as needed for pain. If this is not controlling your pain you can advance to using Toradol and acetaminophen. For severe breakthrough pain you can use the oxycodone given to you at discharge. Be aware that this can affect your breathing and lead to constipation and has the potential to become habit-forming. For this reason only use the oxycodone for severe breakthrough pain. Do not mix oxycodone with cyclobenzaprine muscle relaxant as this can lead to oversedation. If you have any worsening symptoms please return to the emergency department for repeat examination and treatment HPI General Date/Time Provider Initiated Documentation: 03/16/24 15:05 . HPI Narrative: 68-year-old male on Eliquis for A-fib presents after fall from 4 foot ladder, no loss of conscious, does endorse flank discomfort, placed in c-collar; denies loss of consciousness received 1 g IV Tylenol and route; patient does have discomfort left flank with breathing Related Data Home Medications Medication Instructions Recorded Confirmed apixaban 5 mg tablet (Eliquis) 5 mg PO BID 03/12/19 03/16/24 atorvastatin 40 mg tablet 40 mg PO HS 03/12/19 03/16/24 diphenoxylate-atropine 2.5 1 tab PO Q2H PRN PRN 03/12/19 03/16/24 mg-0.025 mg tablet pantoprazole 40 mg tablet,delayed 40 mg PO DAILY PRN 03/12/19 03/16/24 release lactobacillus combination no.4 3 1 cell PO DAILY 06/29/19 03/16/24 billion cell capsule (Probiotic) metoprolol tartrate 25 mg tablet 12.5 mg PO HS 12/24/21 03/16/24 leuprolide (3 month) 22.5 mg (3 22.5 mg IM .COMPLEX 11/22/22 03/16/24 month) intramuscular syringe kit (Lupron Depot) acetaminophen 500 mg tablet 1,000 mg (2 x 500 mg) PO Q8H PRN 11/23/22 03/16/24 pain #90 tabs mecobalamin (vitamin B12) 1,000 1,000 mcg PO DAILY 11/23/22 03/16/24 mcg chewable tablet (B12 Active) [id number] 150 mcg-vit K1 1 tab PO DAILY 11/23/22 03/16/24 30 mcg-lycop 300 mcg-lutein tablet (Centrum Minis Men 50 Plus) mirtazapine 15 mg tablet 15 mg PO QHS 12/07/22 03/16/24 gabapentin 300 mg capsule 300 mg PO TID 03/21/23 03/16/24 cyclobenzaprine 5 mg tablet 5 mg PO QHS PRN muscle spasm #5 03/16/24 tabs lidocaine 5 % topical patch 1 patch topical DAILY PRN 7 days 03/16/24 (Lidoderm) #15 ea Previous Rx's Medication Instructions Recorded acetaminophen 500 mg tablet 1,000 mg (2 x 500 mg) PO Q8H PRN 11/23/22 pain #90 tabs cyclobenzaprine 5 mg tablet 5 mg PO QHS PRN muscle spasm #5 03/16/24 tabs lidocaine 5 % topical patch 1 patch topical DAILY PRN 7 days 03/16/24 (Lidoderm) #15 ea Allergies Allergy/AdvReac Type Severity Reaction Status Date / Time No Known Allergies Allergy Verified 03/16/24 15:07 General Stated Complaint: Fall/Non TraumaCriteria HERMAN: 3 Review of Systems Narrative: Review of Systems Constitutional: negative Eyes: negative ENT: negative Cardiovascular: negative Respiratory: negative Gastrointestinal: negative : negative Musculoskeletal: Flank discomfort Skin: negative Neurologic: negative Psych: negative Exam Narrative Exam Narrative: Physical Examination General: alert, awake, cooperative, resting comfortably, no acute distress HEENT: normocephalic, atraumatic; PERRL, EOM intact, conjunctiva normal; no nasal discharge; moist mucous membranes, oral and pharyngeal mucosa normal, tolerating secretions Neck: supple, trachea midline; in c-collar Chest: normal to inspection Respiratory: normal respiratory effort, speaking in full sentences, clear to auscultation, no wheezing, rales or rhonchi Cardiac: regular rate, regular rhythm, S1S2 intact, no murmurs rubs or gallops GI: abdomen soft, non-tender, non-distended; no palpable mass or hepatosplenomegaly Back: Patient endorses neck discomfort however no midline spinal tenderness cervical thoracic or lumbar region, no step-off crepitus or deformity Skin: Abrasion to left axilla, abrasion to right posterior lateral flank Neuro: AAOx3, normal speech, moving all extremities Extremities: Moving all extremities without deficit, patient does have small abrasion under left axilla also abrasion to right posterior lateral flank Psych: Appropriate mood and affect Course Vital Signs Vital signs: Vital Signs Temperature 36.8 C 03/16/24 15:03 Pulse 80 03/16/24 15:03 Respiratory Rate 18 03/16/24 15:03 Blood Pressure 141/68 H 03/16/24 15:03 Pulse Oximetry 100 03/16/24 15:03 Temperature 36.8 C 03/16/24 15:03 Pulse 80 03/16/24 15:03 Respiratory Rate 18 03/16/24 15:03 Respiratory Effort Normal, Non-Labored 03/16/24 15:06 Blood Pressure 141/68 H 03/16/24 15:03 Blood Pressure Position Supine 03/16/24 15:03 Pulse Oximetry 100 03/16/24 15:03 Oxygen Delivery Method Room Air 03/16/24 15:03 Oxygen Flow Rate 0 03/16/24 15:03 Pain Level 4 03/16/24 15:03 Medical Decision Making 68-year-old male on Eliquis for A-fib brought in by EMS for evaluation after fall from 4 foot ladder, no loss of conscious, airway intact breathing intact, circulation intact, patient has discomfort to left flank noted to have abrasion to left axilla and right flank, pelvis stable, hemodynamically stable, neurologically intact moving all extremities without deficit, consider contusion versus abrasion versus rib fracture versus pneumothorax muscles consider intracranial process given Eliquis and fall from height however patient alert oriented without deficit headache nausea or vomiting lower suspicion for intracranial hemorrhage or spinal cord fracture. Will obtain CT head CT C-spine T-spine L-spine, CT chest abdomen pelvis given evidence of flank contusion. Resting comfortably currently after receiving 1 g of Tylenol and route. Will obtain basic labs and imaging close reassessment 19: 06 evidence of left 10th 11th and 12 rib fracture as well as right 12th rib fracture, L1 spinous process fracture, patient hemodynamically stable resting comfortably no acute distress nontachypneic nonhypoxic. Discussed the options of admission for pain control versus home with pain meds after discussion with his family and some time after pain med administration to see how he felt once medications were off patient is decided he would like to try to go home. Will discharge patient with accommodation of Toradol Lidoderm cyclobenzaprine and oxycodone for severe breakthrough pain. Patient counseled only to take narcotic if pain is severe and uncontrolled with nonnarcotic agents. Patient will also be using acetaminophen [id number]. Patient given incentive spirometer. Home care instructions and strict return precautions given for any worsening symptoms Quality:SDOH Health Related Social Needs: No Data to Display PFSH All Active Problems (Updated 03/16/24 @ 19:11 by Harinder Welch MD) Fracture of spinous process of lumbar vertebra (Acute) Fracture, ribs (Acute) Peripheral edema (Acute) History of total right knee replacement (Acute 11/23/22) A-fib (Chronic) Chest pain (Acute) ST segment changes on electrocardiogram (Acute) Cardiomyopathy (Chronic) Sebaceous cyst (Acute) Medical History Adenocarcinoma of prostate 09/01/22-ended radiation therapy Ascending aorta dilatation Bursitis of right shoulder (~05/12/19) Carpal tunnel syndrome of right wrist Chronic venous insufficiency Contracture of right knee Cubital tunnel syndrome on right Elevated PSA Hand joint stiff Hx of testicular cancer Impingement syndrome of right shoulder (~05/12/19) Injury of right rotator cuff (05/12/19) Irritable bowel syndrome Left inguinal hernia pt. 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
[2024-03-16 15:32] VITALS: BP 127/59
[2024-03-16 15:33] LABS: Abs Immature Grans 0.05 10^3/uL (0.0-0.06); Absolute Basophil Count 0.02 10^3/uL (0.0-0.2); Absolute Eosinophil Count 0.12 10^3/uL (0.0-0.7); Absolute Lymphocyte Count 0.84 10^3/uL (1.2-3.4); Absolute Monocyte Count 0.74 10^3/uL (0.1-0.8); Absolute Neutrophil Count 6.33 10^3/uL (1.2-6.7); Basophils % 0.2 %; Eosinophils % 1.5 %; HCT 34.3 % (40.0-50.0); HGB 11.2 g/dL (13.5-17.5); Immature Grans % 0.6 %; Lymphocytes % 10.4 %; MCH 29.8 pg (27.0-33.0); MCHC 32.7 % (32.0-36.0); MCV 91 fL (80-95); MPV 9.3 fL (8.0-11.0); Monocytes % 9.1 %; Neutrophils % 78.2 %; Platelet Count 159 10^3/uL (130-400); RBC 3.76 10^6/uL (4.36-5.78); RDW 13.1 % (11.8-14.1); RDW-SD 43.5 fL
[2024-03-16 15:45] LABS: ALT 29 U/L (16-63); AST 31 U/L (15-37); Albumin 3.4 g/dL (3.4-5.0); Alkaline Phosphatase 88 U/L (46-116); Anion Gap 9.1 mmol/L (3-11); BUN 22 mg/dL (7-18); Bilirubin, Total 0.8 mg/dL (0.2-1.0); CO2 25.9 mmol/L (21.0-32.0); CREATININE 1.1 mg/dL (0.70-1.30); Calcium 9.1 mg/dL (8.5-10.1); Chloride 106 mmol/L (98-107); Estimated GFR 72.22 (mL/min/1.73m2); Glucose 119 mg/dL (74-106); PTT Activated 24.5 sec (23.6-32.8); Potassium 4.5 mmol/L (3.5-5.1); Prothrombin Time 10.4 sec (9.1-11.1); Sodium 141 mmol/L (136-145); Total Protein 6.7 g/dL (6.4-8.2)
[2024-03-16] MEDS: Normal Saline - Diluent 50 ML VIAL IJ (16:03)
[2024-03-16] MEDS: Omnipaque 350 MG/ML 100 ML BTL IJ (16:05)
[2024-03-16] MEDS: fentaNYL 100 MCG/2 ML VIAL 50 MCG IVP (17:03)
[2024-03-16] MEDS: Lidocaine 5% Patch 1 PATCH TP (17:03)
[2024-03-16 17:07] VITALS: BP 124/56; PULSE 81; RESP 18; O2SAT 97
[2024-03-16 17:44] VITALS: BP 136/73; PULSE 81; RESP 16; O2SAT 97
[2024-03-16 18:00] VITALS: BP 118/43; PULSE 78; RESP 14; O2SAT 99
[2024-03-16 19:49] VITALS: BP 123/54; PULSE 76; RESP 16; O2SAT 95
[2024-03-16] MEDS: Ketorolac 10 MG TAB 40 MG PO (20:01)
[2024-03-16] MEDS: Lidocaine 5% Patch 3 PATCH TP (20:02)
[2024-03-16] MEDS: oxyCODONE 5 MG TAB PO (20:02)
== END 2024-03-16 20:01 | disposition home or self-care (01) ==
PROVIDERS: Emergency Provider Emergency Medicine; PCP Internal Medicine
DX: S22.43XA Multiple fractures of ribs, bilateral, initial encounter for closed fracture (principal); S32.018A Other fracture of first lumbar vertebra, initial encounter for closed fracture; I48.91 Unspecified atrial fibrillation; Z79.01 Long term (current) use of anticoagulants; Z86.73 Personal history of transient ischemic attack (TIA), and cerebral infarction without residual deficits; W11.XXXA Fall on and from ladder, initial encounter
CPT/HCPCS: 74177; 80053; 96375; 99285; 70450; 71260; 72125; 85025; 85610; 85730; 99284; J3010; J3490

== ENCOUNTER 2024-04-12 13:17 | Outpatient (CLI) | payer BC, SELFPAY ==
[2024-04-12 09:32] LABS: Abs Immature Grans 0.01 10^3/uL (0.0-0.06); Absolute Basophil Count 0.03 10^3/uL (0.0-0.2); Absolute Eosinophil Count 0.19 10^3/uL (0.0-0.7); Absolute Lymphocyte Count 0.73 10^3/uL (1.2-3.4); Absolute Monocyte Count 0.52 10^3/uL (0.1-0.8); Absolute Neutrophil Count 2.92 10^3/uL (1.2-6.7); Basophils % 0.7 %; Eosinophils % 4.3 %; HCT 34.4 % (40.0-50.0); HGB 11.4 g/dL (13.5-17.5); Immature Grans % 0.2 %; Lymphocytes % 16.6 %; MCH 30.2 pg (27.0-33.0); MCHC 33.1 % (32.0-36.0); MCV 91 fL (80-95); Monocytes % 11.8 %; Neutrophils % 66.4 %; Platelet Count 165 10^3/uL (130-400); RBC 3.77 10^6/uL (4.36-5.78); RDW 13.4 % (11.8-14.1); RDW-SD 44.7 fL
[2024-04-12 09:47] LABS: ALT 34 U/L (16-63); AST 26 U/L (15-37); Albumin 3.3 g/dL (3.4-5.0); Alkaline Phosphatase 115 U/L (46-116); BUN 21 mg/dL (7-18); Bilirubin, Total 0.52 mg/dL (0.2-1.0); Calcium 8.8 mg/dL (8.5-10.1); Chloride 108 mmol/L (98-107); Estimated GFR 80.97 (mL/min/1.73m2); Glucose 114 mg/dL (74-106); Potassium 4.3 mmol/L (3.5-5.1); Sodium 144 mmol/L (136-145); Total Protein 6.5 g/dL (6.4-8.2)
[2024-04-14 11:48] LABS: PSA, Ultrasensitive <0.01 ng/mL (<= 6.5)
[2024-04-15 10:24] LABS: Testosterone, Total <7.0 ng/dL (240-950)
== END 2024-04-12 13:18 | disposition home or self-care (01) ==
LOC: LBO 13:21
PROVIDERS: PCP Internal Medicine; Visit Provider Colon & Rectal Surgery
DX: C61 Malignant neoplasm of prostate (principal)
CPT/HCPCS: 36415; 80053; 84153; 84403; 85025

== ENCOUNTER 2024-08-08 03:24 | Outpatient (CLI) | payer BC, SELFPAY ==
[2024-08-10 11:54] LABS: PSA, Ultrasensitive <0.01 ng/mL (<= 6.5)
[2024-08-11 18:12] LABS: Testosterone, Total <7.0 ng/dL (240-950)
== END 2024-08-08 03:25 | disposition home or self-care (01) ==
PROVIDERS: PCP Internal Medicine; Visit Provider Physician Assistant
DX: C61 Malignant neoplasm of prostate (principal)
CPT/HCPCS: 36415; 84153; 84403

== ENCOUNTER 2024-11-29 13:25 | Outpatient (CLI) | payer BC, SELFPAY ==
--- NOTE | 2024-11-29 09:45 | DI.RAD_ITS ---
Exam(s) XR KNEE RT 2V AP,LAT EXAM: XR KNEE RT 2V AP,LAT INDICATION: ANNUAL F/U R TKA. COMPARISON: CR XR KNEE RT 2V AP,LAT from 11/28/2023 TECHNIQUE: 2D digital imaging was performed. Two views. FINDINGS: Stable alignment of total knee prosthesis. No abnormal surrounding bony lucencies. DATA REPOSITORY: RADIATION DOSE DELIVERED:
== END 2024-11-29 13:26 | disposition home or self-care (01) ==
LOC: DIORS 13:26
PROVIDERS: PCP Internal Medicine; Visit Provider Physician Assistant
DX: Z96.651 Presence of right artificial knee joint (principal); Z47.1 Aftercare following joint replacement surgery
CPT/HCPCS: 73560

== ENCOUNTER 2025-02-07 01:38 | Outpatient (CLI) | payer BC, SELFPAY ==
[2025-02-11 15:09] LABS: PSA, Ultrasensitive <0.01 ng/mL (<= 6.5)
[2025-02-14 15:38] LABS: Testosterone, Total 235 ng/dL (240-950)
== END 2025-02-07 01:39 | disposition home or self-care (01) ==
LOC: LBO 01:38
PROVIDERS: PCP Internal Medicine; Visit Provider Physician Assistant
DX: C61 Malignant neoplasm of prostate (principal)
CPT/HCPCS: 36415; 84153; 84403

== ENCOUNTER 2025-04-03 21:43 | Outpatient (REF) | payer BC, SELFPAY ==
[2025-04-03 21:22] LABS: Abs Immature Grans 0.01 10^3/uL (0.0-0.06); HCT 35.5 % (40.0-50.0); HGB 11.6 g/dL (13.5-17.5); Immature Grans % 0.2 %; MCH 29.4 pg (27.0-33.0); MCHC 32.7 % (32.0-36.0); MCV 90 fL (80-95); MPV 9.7 fL (8.0-11.0); Platelet Count 190 10^3/uL (130-400); RBC 3.94 10^6/uL (4.36-5.78); RDW 13.1 % (11.8-14.1); RDW-SD 42.7 fL; WBC 5.59 10^3/uL (4.4-10.8)
[2025-04-03 22:28] LABS: ALT 40 U/L (16-63); AST 30 U/L (15-37); Albumin 3.7 g/dL (3.4-5.0); Alkaline Phosphatase 102 U/L (46-116); Anion Gap 8.1 mmol/L (3-11); BUN 19 mg/dL (7-18); Bilirubin, Total 0.5 mg/dL (0.2-1.0); CO2 25.9 mmol/L (21.0-32.0); Calcium 8.6 mg/dL (8.5-10.1); Chloride 107 mmol/L (98-107); Estimated GFR 91.31 (mL/min/1.73m2); Glucose 89 mg/dL (74-106); Potassium 4.4 mmol/L (3.5-5.1); Sodium 141 mmol/L (136-145); TSH (W/Ref FT4) 2.59 uIU/mL (0.36-3.74); Total Protein 6.5 g/dL (6.4-8.2); Vitamin B12 440 pg/mL (193-986)
[2025-04-03 22:32] LABS: Folate > 20.0 ng/mL (8.6-20.0)
[2025-04-04 17:44] LABS: Total Protein 6.3 g/dL (6.3-8.2)
[2025-04-08 12:53] LABS: Albumin 57.8 % (55.8-66.1); Albumin g/dL 3.6 g/dL (3.6-5.2); Alpha 1 g/dL 0.30 g/dL (0.15-0.40); Alpha 2 g/dL 0.70 g/dL (0.50-1.00); Beta g/dL 0.80 g/dL (0.60-1.20); Gamma g/dL 0.90 g/dL (0.60-1.60)
== END 2025-04-03 21:44 | disposition home or self-care (01) ==
LOC: NCHCN 21:43
PROVIDERS: PCP Internal Medicine; Visit Provider Family Medicine
DX: G62.9 Polyneuropathy, unspecified (principal)
CPT/HCPCS: 80053; 82607; 82746; 84165; 84443; 85025

== ENCOUNTER 2025-08-06 01:21 | Outpatient (CLI) | payer BC, SELFPAY | END 2025-08-06 01:22 | disposition home or self-care (01) | LOC: LBO 01:21 | PROVIDERS: PCP Internal Medicine; Visit Provider Physician Assistant | DX: C61 Malignant neoplasm of prostate (principal) | CPT/HCPCS: 36415; 84153; 84403 ==

== ENCOUNTER 2025-08-17 09:23 | Emergency (ER) | payer BC, SELFPAY ==
[2025-08-17 09:28] VITALS: BP 135/75; PULSE 60; RESP 16; TEMP 36.5; O2SAT 95
--- NOTE | 2025-08-17 09:45 | DI.CT_ITS ---
Exam(s) CT RENAL COLIC WO EXAM: CT RENAL COLIC WO CLINICAL HISTORY: hematuria, left flank pain. TECHNIQUE: Imaging Protocol: Axial computed tomography images with coronal and sagittal reformatted images were created and reviewed CONTRAST MATERIAL: Intravenous: none Oral: None COMPARISON: CT CT THORACIC LUMBAR SPINE REC from 03/16/2024 FINDINGS: VISUALIZED LUNG BASES: No nodules nor pleural effusions evident. ABDOMEN: There is no ascites in the upper abdomen but there is a small amount of abnormal free fluid in the dependent aspect of the pelvis in this male patient.. LIVER: There are no obvious focal hepatic lesions evident of this noninfused study. GALLBLADDER/BILIARY: No obvious gallbladder pathology. CBD is not dilated. PANCREAS: No evidence of pancreatic mass nor dilatation of the pancreatic duct. SPLEEN: Spleen is not enlarged. No obvious intrasplenic lesions. ADRENALS: There are no significant adrenal masses. KIDNEYS:No cysts evident. No solid renal masses. There is a solitary tiny nonobstructive punctate calculus in the inferior pole calyx of the right kidney. No hydronephrosis nor hydroureter. There are no radiopaque calculi in the urinary bladder. The urinary bladder wall is uniformly thickened. Pelvic ureters are not dilated. No calculi seen in the UVJ junctions. ABDOMINAL AORTA: Calcified and ectatic. LYMPH NODES: There is no retroperitoneal nor paraaortic adenopathy. ABDOMINAL WALL: No evidence of significant anterior abdominal wall nor inguinal hernia. GI: There is no evidence of bowel obstruction, free air, nor abscess. PELVIS: LYMPH NODES: There is no intrapelvic nor inguinal adenopathy. GI: No evidence of appendicitis.Mild diverticulosis of the sigmoid without evidence of acute diverticulitis. URINARY BLADDER: Uniformly thickened bladder wall. REPRODUCTIVE: Prostate small versus surgically absent. OSSEOUS: No acute fractures but there is multilevel fusion of L2, L3, and L4 vertebral bodies as was also evident on prior CT scan of 03/16/2024. IMPRESSION: 1. There is a solitary nonobstructing 1-2 mm calculus in lower pole right kidney. No other renal findings 2. There is uniform thickening of the urinary bladder wall, possibly due to cystitis. 3. There is some free fluid evident in the pelvis in this 69-year-old male patient. This is never normal finding in a male patient. Possibly reflects new presently occult pathology. Recommend close follow-up including repeat imaging if clinically indicated. Preliminary V rad report was reviewed. RADIATION DOSE DELIVERED: 499.88mGy.cm Total DLP DATA REPOSITORY: All CT scans at this facility are submitted to the National Radiology Data Registry (NRDR) Dose Index Registry (DIR) with the [employer] ([employer]). RADIATION OPTIMIZATION: All CT scans at this facility use at least one of these dose optimization techniques: automated exposure control; mA and/or kV adjustment per patient size (includes targeted exams where dose is matched to clinical indication); or iterative reconstruction.
--- NOTE | 2025-08-17 09:48 | W.ED.GENAD ---
Discharge Plan Disposition Patient Disposition: Home Condition: Stable Discharge Details Clinical Impression: Hematuria, Cystitis Primary Care Provider: Eric Lim ED Provider: Sivakumar Cha Home Meds and New Rx's Prescriptions: New levofloxacin 750 mg tablet 750 mg PO DAILY Qty: 6 0RF Continued gabapentin 300 mg capsule 600 mg PO TID diphenoxylate-atropine 2.5-0.025 mg tablet 1 tab PO Q2H PRN PRN atorvastatin 40 mg tablet 40 mg PO HS Eliquis 5 mg tablet 5 mg PO BID pantoprazole 40 mg tablet,delayed release (DR/EC) 40 mg PO DAILY PRN metoprolol tartrate 25 mg tablet 12.5 mg PO HS mirtazapine 15 mg tablet 15 mg PO QHS timolol 0.5 % drops 1 drp ophthalmic (eye) DAILY Patient Comments: INSTILL ONE DROP IN THE LEFT EYE EVERY MORNING acetaminophen 500 mg tablet 1,000 mg PO Q8H PRN Qty: 90 0RF Rx Instructions: Take two tablets up to every 8 hours as needed for pain Centrum Minis Men 50 Plus [id number] mcg Tablet 1 tab PO DAILY Discontinued mecobalamin (vitamin B12) [B12 Active] 1,000 mcg Tablet,Chewable 1,000 mcg PO DAILY Discharge Instructions Additional Instructions: Your urine showed signs of infection and on your CAT scan your bladder appeared inflamed which usually is due to urinary tract infection. You have a nonobstructing 1 mm kidney stone in your right kidney. I would recommend following up with your primary care provider in 1 to 2 weeks to have your urine rechecked. If you continue to have blood in your urine you should follow-up with urology. If you feel more ill or have new symptoms such as severe abdominal pain or high fevers return to the emergency department for reevaluation. Stand Alone Forms: Portal Information HPI General Mode of arrival: ambulatory. Date/Time Provider Initiated Documentation: 08/17/25 09:28. Limitations to Documentation: no limitations. Information obtained by: patient. History of Present Illness 69 year old M presents to the emergency department with the chief complaint of blood in urine, described as mild, Patient started experiencing this hour(s) (2) and it has been intermittent. No relieving factors improve symptom(s), No exacerbating factors reported . Patient notes denies chest pain, fever/chills, nausea/vomiting and shortness of breath. Related Data Home Medications Medication Instructions Recorded Confirmed apixaban 5 mg tablet (Eliquis) 5 mg PO BID 03/12/19 08/17/25 atorvastatin 40 mg tablet 40 mg PO HS 03/12/19 08/17/25 diphenoxylate-atropine 2.5 1 tab PO Q2H PRN PRN 03/12/19 08/17/25 mg-0.025 mg tablet pantoprazole 40 mg tablet,delayed 40 mg PO DAILY PRN 03/12/19 08/17/25 release metoprolol tartrate 25 mg tablet 12.5 mg PO HS 12/24/21 08/17/25 acetaminophen 500 mg tablet 1,000 mg (2 x 500 mg) PO Q8H PRN 11/23/22 08/17/25 pain #90 tabs [id number] 150 mcg-vit K1 1 tab PO DAILY 11/23/22 08/17/25 30 mcg-lycop 300 mcg-lutein tablet (Centrum Minis Men 50 Plus) mirtazapine 15 mg tablet 15 mg PO QHS 12/07/22 08/17/25 gabapentin 300 mg capsule 600 mg PO TID 11/29/24 08/17/25 levofloxacin 750 mg tablet 750 mg PO DAILY #6 tabs 08/17/25 timolol 0.5 % eye drops 1 drp ophthalmic (eye) DAILY 08/17/25 08/17/25 Previous Rx's Medication Instructions Recorded acetaminophen 500 mg tablet 1,000 mg (2 x 500 mg) PO Q8H PRN 11/23/22 pain #90 tabs levofloxacin 750 mg tablet 750 mg PO DAILY #6 tabs 08/17/25 Allergies Allergy/AdvReac Type Severity Reaction Status Date / Time No Known Allergies Allergy Verified 08/17/25 09:32 General Stated Complaint: Abd Prob HERMAN: 3 Review of Systems All systems reviewed & are unremarkable except as noted in HPI and below Constitutional Constitutional: Denies chills, Denies fever(s) and Denies weakness Cardiovascular Cardiovascular: Denies chest pain and Denies dyspnea Respiratory Respiratory: Denies cough and Denies dyspnea Gastrointestinal Gastrointestinal: Reports abdominal pain, Denies nausea and Denies vomiting Genitourinary Genitourinary: Reports hematuria and Denies dysuria Neurologic Neurologic: Denies weakness Exam Const General: no acute distress Orientation: alert HENMT Head: normal to inspection Ears: external ears normal General nose exam: external nose normal Mouth: moist mucous membranes Eyes General: appearance normal, both eyes and all related structures Neck Neck: normal visual inspection Resp Effort & Inspection: normal respiratory effort and able to speak in complete sentences Cardio Rate: regular rate GI Palpation: soft and nontender Back/Spine/Pelvis Back: no CVA tenderness Skin General skin exam: no rashes or lesions noted Neuro General: patient alert and patient oriented x3 Extrem General: normal to inspection Psych Mental Status: mental status grossly normal Course Vital Signs Vital signs: Vital Signs Temperature 36.5 C 08/17/25 09:28 Pulse 60 08/17/25 09:28 Respiratory Rate 16 08/17/25 09:28 Blood Pressure 135/75 08/17/25 09:28 Pulse Oximetry 95 08/17/25 09:28 Temperature 36.5 C 08/17/25 09:28 Temperature Source Oral 08/17/25 09:28 Pulse 60 08/17/25 09:28 Respiratory Rate 16 08/17/25 09:28 Blood Pressure 135/75 08/17/25 09:28 Pulse Oximetry 95 08/17/25 09:28 Oxygen Delivery Method Room Air 08/17/25 09:28 Oxygen Flow Rate 0 08/17/25 09:28 Medical Decision Making 69-year-old male with a history of A-fib on Eliquis, prior prostate cancer, who comes in with blood in his urine this morning. He says has never had this issue before. He says that he was having issues with diarrhea and took a dose of Metamucil and during the day had some abdominal discomfort but denies any pain now. No back pain, no fevers, no chills. He is well-appearing speaking in full sentences. His abdomen is soft and nontender. He thinks the pain was localized to the left side of his abdomen and flank. Given the hematuria I will check a CBC CMP given the abdominal pain check a lipase and obtain a CT renal colic to evaluate for entities such as obvious neoplasm versus kidney stone. Will also check a UA to evaluate for possible UTI. Patient has a small amount of leukocytes, moderate bacteria, blood work otherwise shows no emergent findings. CT shows a nonobstructing 1 mm right-sided kidney stone no ureteral stones, does have evidence of cystitis. He continues to appear well. I am going to start him on antibiotics for the possible cystitis. He will follow-up with his PCP to have his urine rechecked to see if the hematuria is cleared. Return precautions given. Differential Diagnosis Differential Diagnosis: UTI, kidney stone, neoplasm Medical Records Medical records reviewed: Yes I reviewed the patient's medical records. Lab Data Lab results reviewed: Yes I reviewed the patient's lab results. PFSH All Active Problems (Updated 08/17/25 @ 11:31 by Sivakumar Cha MD) Cystitis (Acute) Hematuria (Acute) Peripheral edema (Acute) History of total right knee replacement (Acute 11/23/22) A-fib (Chronic) Chest pain (Acute) ST segment changes on electrocardiogram (Acute) Cardiomyopathy (Chronic) Sebaceous cyst (Acute) Medical History Adenocarcinoma of prostate 09/01/22-ended radiation therapy Ascending aorta dilatation Bursitis of right shoulder (~05/12/19) Carpal tunnel syndrome of right wrist Chronic venous insufficiency Contracture of right knee Cubital tunnel syndrome on right Elevated PSA Hand joint stiff Hx of testicular cancer Impingement syndrome of right shoulder (~05/12/19) Injury of right rotator cuff (05/12/19) Irritable bowel syndrome Left inguinal hernia pt. 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
[2025-08-17] MEDS: Normal Saline 1,000 ML 1000 ML IV (10:08)
[2025-08-17 10:11] VITALS: BP 135/75; PULSE 60; RESP 18; TEMP 36.5; O2SAT 95
[2025-08-17 10:12] LABS: Abs Immature Grans 0.01 10^3/uL (0.0-0.06); HCT 38.4 % (40.0-50.0); HGB 12.5 g/dL (13.5-17.5); Immature Grans % 0.2 %; MCH 29.6 pg (27.0-33.0); MCHC 32.6 % (32.0-36.0); MCV 91 fL (80-95); MPV 9.5 fL (8.0-11.0); Platelet Count 179 10^3/uL (130-400); RBC 4.23 10^6/uL (4.36-5.78); RDW 13.2 % (11.8-14.1); RDW-SD 43.5 fL; WBC 5.50 10^3/uL (4.4-10.8)
[2025-08-17 10:29] LABS: INR 1.0 (0.9-1.1); PTT Activated 27.0 sec (20.6-30.2); Prothrombin Time 10.3 sec (9.1-11.1)
[2025-08-17 10:33] LABS: Lipase 22 U/L (<53)
[2025-08-17 10:35] LABS: Magnesium 2.0 mg/dL (1.6-2.6)
[2025-08-17 10:36] LABS: ALT 19 U/L (10-49); AST 25 U/L (<34); Albumin 4.2 g/dL (3.4-5.0); Alkaline Phosphatase 78 U/L (46-116); Anion Gap 7.1 mmol/L (3-11); BUN 13 mg/dL (9-23); Bilirubin, Total 0.90 mg/dL (0.2-1.2); CO2 26.9 mmol/L (20.0-31.0); Calcium 9.0 mg/dL (8.3-10.6); Chloride 109 mmol/L (98-107); Glucose 95 mg/dL (74-106); Potassium 4.4 mmol/L (3.5-5.1); Sodium 143 mmol/L (136-145); Total Protein 6.8 g/dL (5.7-8.2)
[2025-08-17 10:45] LABS: Glucose Negative (Negative)
[2025-08-17 10:59] LABS: C & S Indicated? No; WBC 0-2 HPF (0-5)
--- NOTE | 2025-08-17 11:09 | DI.VRAD_ITS ---
PROCEDURE INFORMATION: Exam: CT Abdomen And Pelvis Without Contrast Exam date and time: 08/17/2025 10:07 AM Age: 69 years old Clinical indication: Abdominal pain; Flank; Left; Additional info: Blood in urine TECHNIQUE: Imaging protocol: Computed tomography of the abdomen and pelvis without contrast. COMPARISON: CT CHEST/ABD/PEL W 03/16/2024 4:12 PM FINDINGS: Lungs: Unremarkable. Lung bases are clear. Liver: Unremarkable. No mass. Gallbladder and biliary ducts: Unremarkable. No calcified stones. No ductal dilation. Pancreas: Unremarkable. No ductal dilation. Spleen: Unremarkable. No splenomegaly. Adrenal glands: Normal. No mass. Kidneys and ureters: 1 mm nonobstructing stone lower pole right kidney. No ureteral stones. No hydronephrosis Stomach and bowel: Moderate diverticulosis is present in the sigmoid colon. No evidence of diverticulitis. Moderate stool load suggesting constipation Appendix: No evidence of appendicitis. Intraperitoneal space: Unremarkable. No free air. No significant fluid collection. 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 No enlarged lymph nodes. Urinary bladder: Urinary bladder is circumferentially thickened, possible cystitis Reproductive: Unremarkable as visualized. Bones/joints: Bony fusion of the L2 through L4 vertebral bodies Soft tissues: Unremarkable. IMPRESSION: 1. 1 mm nonobstructing stone lower pole right kidney. No ureteral stones. No hydronephrosis 2. Possible cystitis Dictated and Authenticated by: Cheryl Majano MD. Orderin Starla Shaver MD
[2025-08-17] MEDS: levoFLOXacin 500 MG, levoFLOXacin 250 MG 750 MG PO (11:50)
[2025-08-17 11:59] VITALS: BP 147/63; PULSE 55; RESP 16; O2SAT 97
== END 2025-08-17 12:01 | disposition home or self-care (01) ==
PROVIDERS: Emergency Provider Emergency Medicine; PCP Family Medicine
DX: N30.91 Cystitis, unspecified with hematuria
CPT/HCPCS: 36415; 80053; 83690; 96360; 96361; 99284; 74176; 81003; 81015; 83735; 85025; 85610; 85730; 87086

== ENCOUNTER → 2025-09-18 00:22 | Outpatient (CLI) | payer BC, SELFPAY ==
--- NOTE | 2025-09-18 06:45 | DI.RAD_ITS ---
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 TECHNIQUE: 2D digital imaging was performed. Three views. COMPARISON: CR XR KNEE RT 1V from 11/19/2022 CR XR KNEE RT 1V from 12/06/2022 CR XR KNEE RT 2V AP,LAT from 11/28/2023 CR XR KNEE RT 2V AP,LAT from 11/29/2024 FINDINGS: BONES: No acute fracture is present. No bony destructive lesion is seen. JOINTS: Question lateral patellar subluxation. No prior merchant's views are available for comparison. The femoral and tibial components of the prosthesis appear unchanged. No joint effusion is seen. SOFT TISSUE: Normal. IMPRESSION: Lateral subluxation of the patella. Femoral in and tibial components are unremarkable DATA REPOSITORY: RADIATION DOSE DELIVERED:
== END ==
LOC: DI 00:22
PROVIDERS: PCP Family Medicine; Visit Provider Student in an Organized Health Care Education/Training Program
DX: Z96.651 Presence of right artificial knee joint (principal); S83.011A Lateral subluxation of right patella, initial encounter
CPT/HCPCS: 73562